=== PATIENT | male | born 1940 | race Caucasian/White ===

== ENCOUNTER 2016-05-09 08:54 | Outpatient (CLI) | payer MEDICARE, OTHER | END 2016-05-09 08:55 | disposition home or self-care (01) | DX: I10 Essential (primary) hypertension (principal); Z12.5 Encounter for screening for malignant neoplasm of prostate; E03.9 Hypothyroidism, unspecified; Z79.899 Other long term (current) drug therapy; E78.2 Mixed hyperlipidemia | CPT/HCPCS: 80053; 80061; 83690; 84443; 85025; G0103 ==

== ENCOUNTER 2016-07-04 06:42 | Outpatient (CLI) | payer MEDICARE, OTHER | END 2016-07-04 06:43 | DX: R31.9 Hematuria, unspecified (principal) ==

== ENCOUNTER 2016-12-21 09:50 | Outpatient (CLI) | payer MEDICARE, OTHER ==
--- NOTE | 2016-12-21 10:26 | XRAY Report ---
THREE-VIEW LUMBAR SPINE: 12/21/2016 CLINICAL INDICATION: Back pain. FINDINGS: AP, lateral, coned-down views of the lumbar spine demonstrate moderate degenerative disk a nd facet disease, with degenerative levoscoliosis. There is no evidence of compression fracture. At herosclerotic calcifications are noted. The bowel gas pattern is unremarkable. IMPRESSION: MODERATE DEGENERATIVE CHANGES, WITH DEGENERATIVE LEVOSCOLIOSIS. JOB #: [id number] EXT JOB #:[id number]
[2016-12-21 11:22] LABS: ALBUMIN/GLOBULIN RATIO 1.4 (1.0-2.2); BUN - BLOOD UREA NITROGEN 24 mg/dL (6-20); CALCIUM 9.3 mg/dL (8.5-10.3); CARBON DIOXIDE - CO2 25 mmol/L (21-32); CHLORIDE 104 mmol/L (101-111); CREATININE 1.4 mg/dL (0.6-1.2); GFR - MDRD 50 (>89); GLUCOSE 100 mg/dL (70-100); POTASSIUM 4.2 mmol/L (3.5-5.0); SODIUM 138 mmol/L (135-145); TOTAL PROTEIN 7.1 g/dL (6.7-8.2)
== END 2016-12-21 09:51 | disposition home or self-care (01) ==
LOC: DI 09:50
PROVIDERS: ATTEND Physician Assistant Medical
DX: M51.36 Other intervertebral disc degeneration, lumbar region (principal); M47.896 Other spondylosis, lumbar region; M41.86 Other forms of scoliosis, lumbar region; R63.4 Abnormal weight loss; Z79.899 Other long term (current) drug therapy
CPT/HCPCS: 36415; 72100; 80053

== ENCOUNTER 2017-01-02 10:47 | Outpatient (CLI) | payer MEDICARE, OTHER ==
[2017-01-02] MEDS ORDERED: IOPAMIDOL-300 50 ML VIAL ONE ×2 (10:56)
[2017-01-02] MEDS: IOPAMIDOL-300 50 ML VIAL PO ONE (14:19)
--- NOTE | 2017-01-02 14:38 | CT Report ---
CT CHEST WITH CONTRAST: 01/02/2017 CLINICAL INDICATION: Abnormal weight loss. TECHNIQUE: Axial CT images of the chest were obtained with 50 mL of Isovue-300 intravenously. In accordance with CT protocol optimization, one or more of the following dose reduction techniques w ere utilized for this exam: automated exposure control, adjustment of mA and/or KV based on patient size, or use of iterative reconstructive technique. FINDINGS: The heart and great vessels demonstrate atherosclerotic calcifications. No hilar or media stinal lymphadenopathy is present. The lungs demonstrate minimal dependent atelectasis. No pulmonar y nodule or mass lesion is present. No effusion or pneumothorax is seen. Osseous structures demonst rate degenerative changes and changes of previous sternotomy. IMPRESSION: NO EVIDENCE OF PULMONARY MALIGNANCY. JOB #: [id number] EXT JOB #:[id number]
--- NOTE | 2017-01-02 14:43 | CT Report ---
CT ABDOMEN AND PELVIS WITH CONTRAST: 01/02/2017 CLINICAL INDICATION: Abnormal weight loss. TECHNIQUE: Axial CT images of the abdomen and pelvis were obtained with 50 mL Isovue-300 intravenous ly as well as oral contrast. In accordance with CT protocol optimization, one or more of the following dose reduction techniques w ere utilized for this exam: automated exposure control, adjustment of mA and/or KV based on patient size, or use of iterative reconstructive technique. FINDINGS: The liver, spleen, pancreas, and adrenal glands are unremarkable. The kidneys demonstrate cortical cysts. No hydronephrosis or nephrolithiasis is present. The gallbladder is not dilated. No bowel dilatation, free gas, or free fluid is present. No abdominal adenopathy is seen. Pelvis: The appendix is seen in the right lower quadrant, and is normal in caliber. Sigmoid diverti culosis is present, without CT evidence of diverticulitis. No pelvic adenopathy or free fluid is pre sent. Osseous structures demonstrate degenerative changes. IMPRESSION: NO EVIDENT REASON FOR PATIENT'S ABNORMAL WEIGHT LOSS. DIVERTICULOSIS, WITHOUT CT EVIDEN CE OF DIVERTICULITIS. JOB #: [id number] EXT JOB #:[id number]
== END 2017-01-02 10:48 | disposition home or self-care (01) ==
LOC: DI 10:47
PROVIDERS: ATTEND Physician Assistant Medical
DX: R63.4 Abnormal weight loss (principal); M54.5 Low back pain; K57.30 Diverticulosis of large intestine without perforation or abscess without bleeding
CPT/HCPCS: 71260; 74177; Q9967

== ENCOUNTER 2017-02-23 08:07 | Outpatient (CLI) | payer MEDICARE, OTHER ==
[2017-02-23 08:31] LABS: BASOPHILS % (AUTO) 0.7 %; EOSINOPHILS # (AUTO) 0.3 10^3/uL (0.0-0.7); EOSINOPHILS % (AUTO) 5.5 %; HGB - HEMOGLOBIN 13.8 g/dL (14.0-18.0); LYMPHOCYTES # (AUTO) 1.3 10^3/uL (1.5-3.5); LYMPHOCYTES % (AUTO) 21.5 %; MEAN CORPUSCULAR HEMOGLOBIN 31.2 pg (27.0-31.0); MEAN CORPUSCULAR HGB CONC 33.6 g/dL (32.0-36.0); MEAN CORPUSCULAR VOLUME 92.8 fL (80.0-94.0); MEAN PLATELET VOLUME 7.7 fL (7.4-11.4); MONOCYTES # (AUTO) 0.5 10^3/uL (0.0-1.0); MONOCYTES % (AUTO) 8.8 %; NEUTROPHILS % (AUTO) 63.5 %; RED BLOOD COUNT 4.41 10^6/uL (4.70-6.10); RED CELL DISTRIBUTION WIDTH 13.2 % (12.0-15.0); UNCORRECTED WHITE BLOOD COUNT 6.2 x10^3/uL; WHITE BLOOD COUNT 6.2 x10^3/uL (4.8-10.8)
== END 2017-02-23 08:08 | disposition home or self-care (01) ==
LOC: LAB 08:07
PROVIDERS: ATTEND Internal Medicine
DX: Z79.899 Other long term (current) drug therapy (principal); R63.4 Abnormal weight loss
CPT/HCPCS: 36415; 84443; 85025; 85651; 86140

== ENCOUNTER 2017-05-22 18:22 | Emergency (ER) | payer MEDICARE, OTHER ==
[2017-05-22 19:08] LABS: BASOPHILS # (AUTO) 0.1 10^3/uL (0.0-0.1); BASOPHILS % (AUTO) 0.7 %; EOSINOPHILS # (AUTO) 0.2 10^3/uL (0.0-0.7); EOSINOPHILS % (AUTO) 2.8 %; HGB - HEMOGLOBIN 13.5 g/dL (14.0-18.0); LYMPHOCYTES # (AUTO) 1.4 10^3/uL (1.5-3.5); LYMPHOCYTES % (AUTO) 18.8 %; MEAN CORPUSCULAR HGB CONC 32.8 g/dL (32.0-36.0); MEAN CORPUSCULAR VOLUME 91.6 fL (80.0-94.0); MEAN PLATELET VOLUME 8.3 fL (7.4-11.4); MONOCYTES # (AUTO) 0.7 10^3/uL (0.0-1.0); MONOCYTES % (AUTO) 8.9 %; NEUTROPHILS # (AUTO) 5.1 10^3/uL (1.5-6.6); NEUTROPHILS % (AUTO) 68.8 %; PLT - PLATELET COUNT 200 10^3/uL (130-450); RED CELL DISTRIBUTION WIDTH 12.9 % (12.0-15.0); WHITE BLOOD COUNT 7.4 x10^3/uL (4.8-10.8)
--- NOTE | 2017-05-22 19:16 | XRAY Report ---
EXAM: CHEST RADIOGRAPHY EXAM DATE: 05/22/2017 07:01 PM. CLINICAL HISTORY: Hypertension . COMPARISON: None. TECHNIQUE: 2 views. FINDINGS: Lungs/Pleura: No focal opacities evident. No pleural effusion. No pneumothorax. Normal volumes. Mediastinum: Status post median sternotomy and valve repair. The heart is otherwise normal in size. T he pulmonary vasculature is within normal limits. Other: None. IMPRESSION: No focal consolidation. [facility] Referring Provider Line: [phone] SITE ID: [id number]
[2017-05-22 19:19] LABS: ALBUMIN 4.2 g/dL (3.2-5.5); ALBUMIN/GLOBULIN RATIO 1.2 (1.0-2.2); ALKALINE PHOSPHATASE 55 IU/L (42-121); ALT ALANINE AMINOTRANSFERASE < 10 IU/L (10-60); AST ASPARTATE AMINOTRANSFERASE 27 IU/L (10-42); BILIRUBIN,TOTAL 0.8 mg/dL (0.2-1.0); BUN - BLOOD UREA NITROGEN 24 mg/dL (6-20); CALCIUM 9.3 mg/dL (8.5-10.3); CARBON DIOXIDE - CO2 25 mmol/L (21-32); CHLORIDE 101 mmol/L (101-111); CREATININE 1.2 mg/dL (0.6-1.2); GFR - MDRD 59 (>89); GLUCOSE 93 mg/dL (70-100); LIPASE 21 U/L (22-51); SODIUM 138 mmol/L (135-145); TOTAL PROTEIN 7.6 g/dL (6.7-8.2)
--- NOTE | 2017-05-22 19:57 | ED Physician Documentation ---
PD HPI CHEST PAIN - Stated complaint Stated Complaint: Hypertension - Chief complaint Chief Complaint: Cardiac - History obtained from History obtained from: Patient - History of Present Illness Timing - onset: How many days ago (he says his BP has been high borderline for awhile, and higher the past several days. He resumed a BP med he had been on ( Lopressor by his own med list, though nursing notes say Lisinopril but that is not accurate). He had been off that as it made his heart rate too slow. Noted BP quite high today at 180-190 systolic with high diastolic as well. Here for evaluation. No headache, chest pain, lightheaded nor dyspnea.) Timing - onset during: Rest Timing - details: Waxing and waning Quality: No: Pressure, Tightness, Pain Associated symptoms: No: Shortness of air, Diaphoresis, Nausea, Vomiting, Feeling faint / dizzy, General Weakness, Palpitations, Cough Recently seen: Not recently seen Review of Systems Constitutional: denies: Fever, Chills Nose: denies: Rhinorrhea / runny nose, Congestion Throat: denies: Sore throat Cardiac: denies: Chest pain / pressure, Palpitations Respiratory: denies: Dyspnea, Cough GI: denies: Abdominal Pain, Nausea, Vomiting, Diarrhea, Bloody / black stool Neurologic: reports: Generalized weakness (with tremors from his Parkinsons). denies: Focal weakness, Numbness, Confused, Altered mental status, Headache PD PAST MEDICAL HISTORY - Past Medical History Cardiovascular: None Respiratory: None Neuro: Parkinson's Endocrine/Autoimmune: None GI: GERD, Colon polyps : None HEENT: Chronic hearing loss Psych: None Musculoskeletal: Osteoarthritis, Fatigue, Chronic back pain Derm: None - Past Surgical History General: Colonoscopy - Present Medications Home Medications: Ambulatory Orders Medication Instructions Recorded Confirmed Aspirin 81 mg PO 12/18/12 12/18/12 Carbidopa/Levodopa [Carbidopa-Levo SUBQ QID 12/18/12 12/18/12 25-100 mg Odt] Cetirizine HCl [All Day Allergy] 12/18/12 12/18/12 Levothyroxine [Synthroid] 50 mcg PO QDAC 12/18/12 12/18/12 Lisinopril 20 mg PO 12/18/12 12/18/12 Multivitamin [Multivitamins] 1 each PO 12/18/12 12/18/12 Omeprazole Magnesium [Prilosec Otc] 20 mg PO 12/18/12 12/18/12 Ropinirole HCl [Requip] 5 mg PO QID 12/18/12 12/18/12 Trihexyphenidyl [Artane] BID 12/18/12 12/18/12 raNITIdine HCl [Ranitidine HCl] 150 mg PO BID 12/18/12 12/18/12 Lorazepam [Ativan] 1 mg PO QPM PRN #7 tablet 05/22/17 Losartan [Cozaar] 50 mg PO DAILY #30 tablet 05/22/17 - Allergies Allergies/Adverse Reactions: Allergies Allergy/AdvReac Type Severity Reaction Status Date / Time No Known Drug Allergies Allergy Verified 05/22/17 18:34 - Social History Does the pt smoke?: No Smoking Status: Never smoker PD ED PE NORMAL - Vitals Vital signs reviewed: Yes - General General: Alert and oriented X 3, No acute distress, Well developed/nourished - HEENT HEENT: Pharynx benign - Neck Neck: Supple, no meningeal sign, No adenopathy, Thyroid normal - Cardiac Cardiac: RRR, No murmur - Respiratory Respiratory: Clear bilaterally - Abdomen Abdomen: Soft, Non tender - Derm Derm: Normal color, Warm and dry - Extremities Extremities: No tenderness to palpate, Normal ROM s pain - Neuro Neuro: Alert and oriented X 3, No motor deficit, Normal speech Eye Opening: Spontaneous Motor: Obeys Commands Verbal: Oriented GCS Score: 15 Results - Vitals Vitals: Oxygen O2 Source Room air - EKG (time done) 18:59 Rate: Rate (enter#) (66) Rhythm: NSR (too much artifact from his tremors, so not interpretable really. Appears like P waves in there. ) Ischemia: Normal ST segments. No: ST elevation c/w ischemia, ST depression - Tele (time rhythm occurred) 19:10 Telemetry / rhythm strip: Rate (65), NSR (when he has moments between tremor cycles, the monitor shows NSR. Otherwise the tremors shows just artifact. ) - Labs Labs: Laboratory Tests 05/22/17 05/22/17 05/22/17 19:00 19:00 19:00 WBC 7.4 RBC 4.50 L Hgb 13.5 L Hct 41.3 L MCV 91.6 MCH 30.0 MCHC 32.8 RDW 12.9 Plt Count 200 MPV 8.3 Neut # 5.1 Lymph # 1.4 L [place] # 0.7 Eos # 0.2 Baso # 0.1 Absolute Nucleated RBC 0.00 Nucleated RBC % 0.0 Sodium 138 Potassium 4.3 Chloride 101 Carbon Dioxide 25 Anion Gap 12.0 BUN 24 H Creatinine 1.2 Estimated GFR (MDRD) 59 L Glucose 93 Calcium 9.3 Total Bilirubin 0.8 AST 27 ALT < 10 L Alkaline Phosphatase 55 Troponin I < 0.04 Total Protein 7.6 Albumin 4.2 Globulin 3.4 Albumin/Globulin Ratio 1.2 Lipase 21 L PD MEDICAL DECISION MAKING - ED course Complexity details: considered differential (BP high without symptoms per se. Has been high borderline for awhile, per patient. He had been on Metoprolol previously but heart rate was slow with it. So he would like to be on BP med and would choose one that does not affect HR as well, such as SHLOMO/ARB. Triage pathway for chest pain showed normal labs. ), d/w patient Departure - Departure Disposition: 01 Home, Self Care Clinical Impression: Hypertension Qualifiers: Hypertension type: unspecified Qualified Code(s): I10 - Essential (primary) hypertension Condition: Stable Record reviewed to determine appropriate education?: Yes Instructions: ED Hypertension New Begin Tx Follow-Up: Miguelangel Beatty MD [Primary Care Provider] - Prescriptions: Lorazepam [Ativan] 1 mg PO QPM PRN #7 tablet PRN Reason: Insomnia Losartan [Cozaar] 50 mg PO DAILY #30 tablet Comments: With your blood pressure running higher, you could be reasonable to start a blood pressure medicine that will not affect heart rate as well. Take losartan 50 mg daily and check your blood pressure once or twice daily over the next week and see what the trend is. Your blood pressure may be elevated because of your trouble sleeping lately he could try Ativan at night as needed for sleep over the next week. Follow-up with your primary care in about a week and see how you are doing with these. Discharge Date/Time: 05/22/17 20:49
[2017-05-22] MEDS ORDERED: LOSARTAN 50 MG TABLET PO STA (20:15)
[2017-05-22] MEDS ORDERED: LORazepam 0.5 MG TABLET PO STA (20:16)
[2017-05-22 20:32] VITALS: BP 172/93
== END 2017-05-22 20:49 | disposition home or self-care (01) ==
LOC: ED 18:22
DX: I10 Essential (primary) hypertension (principal); G20 Parkinson's disease; Z79.82 Long term (current) use of aspirin
CPT/HCPCS: 36415; 71046; 80053; 83690; 84484; 85025; 93005; 99283; A9270

== ENCOUNTER 2017-10-31 10:30 | Outpatient (CLI) | payer MEDICARE, OTHER ==
--- NOTE | 2017-10-31 15:14 | XRAY Report ---
Procedure Date: 10/31/2017 Accession Number: [id number] / [id number] Procedure: XR - Knee 3 View BILAT CPT Code: FULL RESULT: EXAMS: 1. Right Knee Radiography 2. Left Knee Radiography EXAM DATE:10/31/2017 11:13 AM. CLINICAL HISTORY:Knee joint pain, 3 months, right. COMPARISON: None. TECHNIQUE: 3 views each. FINDINGS: Right Knee: Bones: Normal. No fractures or bone lesions. Joints: There are advanced degenerative changes of the medial patellar facet with sclerosis and subchondral cyst formation. There are moderate degenerative changes in the medial femorotibial compartment and mild degenerative changes in the lateral femorotibial compartment. There is a small joint effusion. Soft Tissues: Normal. No soft tissue swelling. Left Knee: Bones: Normal. No fractures or bone lesions. Joints: Mild tricompartmental osteoarthrosis most pronounced in the medial femorotibial compartment. There is no joint effusion. Soft Tissues: Normal. No soft tissue swelling. IMPRESSION: Asymmetric degenerative changes of the right knee joint predominantly involving the medial patellar facet. [facility]
== END 2017-10-31 10:31 | disposition home or self-care (01) ==
LOC: DI 10:30
PROVIDERS: ATTEND Physician Assistant Medical
DX: M25.561 Pain in right knee (principal)

== ENCOUNTER 2017-12-16 16:14 | Outpatient (CLI) | payer MEDICARE, OTHER | END 2017-12-16 16:15 | disposition critical access hospital (66) | LOC: EMS 16:14 | PROVIDERS: ATTEND Surgery | DX: K62.5 Hemorrhage of anus and rectum (principal) | CPT/HCPCS: A0425; A0427 ==

== ENCOUNTER 2017-12-16 16:25 | Observation (INO) | payer MEDICARE, OTHER ==
[2017-12-16 16:55] LABS: BASOPHILS % (AUTO) 0.3 %; EOSINOPHILS # (AUTO) 0.1 10^3/uL (0.0-0.7); EOSINOPHILS % (AUTO) 0.8 %; HGB - HEMOGLOBIN 9.6 g/dL (14.0-18.0); LYMPHOCYTES % (AUTO) 13.7 %; MEAN CORPUSCULAR HGB CONC 34.3 g/dL (32.0-36.0); MEAN CORPUSCULAR VOLUME 93.3 fL (80.0-94.0); MEAN PLATELET VOLUME 8.1 fL (7.4-11.4); MONOCYTES # (AUTO) 0.4 10^3/uL (0.0-1.0); MONOCYTES % (AUTO) 5.8 %; NEUTROPHILS # (AUTO) 5.6 10^3/uL (1.5-6.6); NEUTROPHILS % (AUTO) 79.4 %; PLT - PLATELET COUNT 161 10^3/uL (130-450); RED CELL DISTRIBUTION WIDTH 13.4 % (12.0-15.0); WHITE BLOOD COUNT 7.1 x10^3/uL (4.8-10.8)
[2017-12-16 17:01] LABS: INR 1.1 (0.8-1.2); PT - PROTHROMBIN TIME 12.7 secs (9.9-12.6)
--- NOTE | 2017-12-16 17:02 | ED Physician Documentation ---
PD HPI GI BLEED - Stated complaint Stated Complaint: GI BLEED - Chief complaint Chief Complaint: Abd Pain - History obtained from History obtained from: Patient, EMS - History of Present Illness Timing - onset: Last night (had 2 episodes of bloody stool, then none overnight. Has had 5-6 episodes today, with red to slightly maroon stools today. Feeling generally weak. No abd pain.) Timing - duration: Days (1) Timing - details: Abrupt onset, Still present Associated symptoms: BRBPR, Maroon stool. No: Vomiting, Coffee ground emesis, Black/tarry stool, Diarrhea, Constipation, Abdominal pain, Loss of appetite Contributing factors: No: Sick contact, Bad food, Travel, Recent antibiotics, Anticoagulated Improved by: No: Eating Worsened by: No: Eating, Palpation Similar symptoms before: Has not had sx before Recently seen: Not recently seen Review of Systems Constitutional: reports: Fatigue. denies: Fever, Chills, Myalgias Nose: denies: Rhinorrhea / runny nose, Congestion Throat: denies: Sore throat Respiratory: denies: Cough GI: reports: Bloody / black stool. denies: Abdominal Pain, Abdominal Swelling, Nausea, Vomiting, Constipation, Hematemesis : denies: Dysuria, Frequency Neurologic: reports: Generalized weakness. denies: Focal weakness, Numbness, Near syncope, Altered mental status PD PAST MEDICAL HISTORY - Past Medical History Cardiovascular: None Respiratory: None Endocrine/Autoimmune: None GI: GERD, Colon polyps : None HEENT: Chronic hearing loss Psych: None Musculoskeletal: Osteoarthritis, Fatigue, Chronic back pain Derm: None - Past Surgical History General: Colonoscopy (with just polyps several years ago) - Present Medications Home Medications: Ambulatory Orders Medication Instructions Recorded Confirmed Aspirin 81 mg PO 12/18/12 12/18/12 Carbidopa/Levodopa [Carbidopa-Levo SUBQ QID 12/18/12 12/18/12 25-100 mg Odt] Cetirizine HCl [All Day Allergy] 12/18/12 12/18/12 Levothyroxine [Synthroid] 50 mcg PO QDAC 12/18/12 12/18/12 Lisinopril 20 mg PO 12/18/12 12/18/12 Multivitamin [Multivitamins] 1 each PO 12/18/12 12/18/12 Omeprazole Magnesium [Prilosec Otc] 20 mg PO 12/18/12 12/18/12 Ropinirole HCl [Requip] 5 mg PO QID 12/18/12 12/18/12 Trihexyphenidyl [Artane] BID 12/18/12 12/18/12 raNITIdine HCl [Ranitidine HCl] 150 mg PO BID 12/18/12 12/18/12 Lorazepam [Ativan] 1 mg PO QPM PRN #7 tablet 05/22/17 Losartan [Cozaar] 50 mg PO DAILY #30 tablet 05/22/17 - Allergies Allergies/Adverse Reactions: Allergies Allergy/AdvReac Type Severity Reaction Status Date / Time No Known Drug Allergies Allergy Verified 12/16/17 16:31 - Social History Does the pt smoke?: No Smoking Status: Never smoker Does the pt drink ETOH?: No Does the pt have substance abuse?: No - Immunizations Immunizations are current?: Yes PD ED PE NORMAL - Vitals Vital signs reviewed: Yes - General General: Alert and oriented X 3, No acute distress, Well developed/nourished - HEENT HEENT: Moist mucous membranes, Pharynx benign - Neck Neck: Supple, no meningeal sign, No adenopathy - Cardiac Cardiac: RRR, No murmur - Respiratory Respiratory: Clear bilaterally - Abdomen Abdomen: Normal bowel sounds, Soft, Non tender, Non distended, No organomegaly - Male Male : Deferred - Rectal Rectal: Other (no hemorrhoids. There is red to slightly maroon material in vault. No real stool noted. c/w GI bleed) - Back Back: No CVA TTP - Derm Derm: Warm and dry. No: Normal color (mild pallor) - Extremities Extremities: No deformity, No tenderness to palpate, Normal ROM s pain, No edema, No calf tenderness / cord - Neuro Neuro: Alert and oriented X 3, No motor deficit, Normal speech Eye Opening: Spontaneous Motor: Obeys Commands Verbal: Oriented GCS Score: 15 - Psych Psych: Normal mood, Normal affect Results - Vitals Vitals: Vital Signs - 24 hr 12/16/17 12/16/17 12/16/17 16:25 16:54 17:00 Temperature 36.2 C L Heart Rate 65 71 78 Respiratory 14 21 16 Rate Blood Pressure 108/80 119/71 115/67 O2 Saturation 96 100 99 12/16/17 17:41 Temperature Heart Rate 98 Respiratory 16 Rate Blood Pressure 124/72 O2 Saturation 97 Oxygen O2 Source Room air - Labs Labs: Laboratory Tests 12/16/17 12/16/17 12/16/17 16:35 16:35 16:35 WBC 7.1 RBC 3.00 L Hgb 9.6 L Hct 28.0 L MCV 93.3 MCH 32.0 H MCHC 34.3 RDW 13.4 Plt Count 161 MPV 8.1 Neut # (Auto) 5.6 Lymph # (Auto) 1.0 L [place] # (Auto) 0.4 Eos # (Auto) 0.1 Baso # (Auto) 0.0 Absolute Nucleated RBC 0.00 Nucleated RBC % 0.0 PT 12.7 H INR 1.1 APTT 23.0 L Sodium 134 L Potassium 3.5 Chloride 103 Carbon Dioxide 24 Anion Gap 7.0 BUN 22 H Creatinine 1.2 Estimated GFR (MDRD) 59 L Glucose 133 H Calcium 7.6 L Total Bilirubin 1.0 AST 19 ALT < 10 L Alkaline Phosphatase 33 L Troponin I Total Protein 5.2 L Albumin 3.2 Globulin 2.0 L Albumin/Globulin Ratio 1.6 Lipase 28 Blood Type Antibody Screen Crossmatch IS Only 12/16/17 12/16/17 16:35 16:35 WBC RBC Hgb Hct MCV MCH MCHC RDW Plt Count MPV Neut # (Auto) Lymph # (Auto) [place] # (Auto) Eos # (Auto) Baso # (Auto) Absolute Nucleated RBC Nucleated RBC % PT INR APTT Sodium Potassium Chloride Carbon Dioxide Anion Gap BUN Creatinine Estimated GFR (MDRD) Glucose Calcium Total Bilirubin AST ALT Alkaline Phosphatase Troponin I < 0.04 Total Protein Albumin Globulin Albumin/Globulin Ratio Lipase Blood Type A POSITIVE Antibody Screen NEGATIVE Crossmatch IS Only See Detail PD MEDICAL DECISION MAKING - ED course Complexity details: reviewed results (blood count of 9.6, with last one on record from May was 13 hgb. Vital are stable though. ), considered differential, d/w patient - Sepsis Event Vital Signs: Vital Signs - 24 hr 12/16/17 12/16/17 12/16/17 16:25 16:54 17:00 Temperature 36.2 C L Heart Rate 65 71 78 Respiratory 14 21 16 Rate Blood Pressure 108/80 119/71 115/67 O2 Saturation 96 100 99 12/16/17 17:41 Temperature Heart Rate 98 Respiratory 16 Rate Blood Pressure 124/72 O2 Saturation 97 Oxygen O2 Source Room air Departure - Departure Disposition: ED Place in Observation Clinical Impression: Lower GI bleeding, Anemia due to acute blood loss, Parkinson disease Condition: Stable Record reviewed to determine appropriate education?: Yes Discharge Date/Time: 12/16/17 19:16
[2017-12-16 17:09] LABS: ALBUMIN 3.2 g/dL (3.2-5.5); ALBUMIN/GLOBULIN RATIO 1.6 (1.0-2.2); ALKALINE PHOSPHATASE 33 IU/L (42-121); ALT ALANINE AMINOTRANSFERASE < 10 IU/L (10-60); AST ASPARTATE AMINOTRANSFERASE 19 IU/L (10-42); BUN - BLOOD UREA NITROGEN 22 mg/dL (6-20); CALCIUM 7.6 mg/dL (8.5-10.3); CARBON DIOXIDE - CO2 24 mmol/L (21-32); CHLORIDE 103 mmol/L (101-111); CREATININE 1.2 mg/dL (0.6-1.2); GFR - MDRD 59 (>89); GLUCOSE 133 mg/dL (70-100); LIPASE 28 U/L (22-51); SODIUM 134 mmol/L (135-145); TOTAL PROTEIN 5.2 g/dL (6.7-8.2)
[2017-12-16] MEDS ORDERED: TRANEXAMIC ACID 1,000 MG in SODIUM CHLORIDE 0.9% 100ML 100 ML IV STA (17:17)
--- NOTE | 2017-12-16 17:53 | HISTORY & PHYSICAL EXAMINATION ---
Chief Complaint - Chief Complaint Chief Complaint: GI bleed History of Present Illness - Admitted From Admitted From:: ED - History Obtained From Records Reviewed: yes History obtained from: chart review, patient, patient's Exam Limitations: none - History of Present Illness HPI Comment/Other: Altaf Sandra (John) is a 76-year old male with a past medical history of GERD, colon polyps, diverticulitis, gastric ulcers from +H. 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 The patient began with a blood stool last evening around 5pm, had a few more episodes overnight and this morning this continued causing him profound weakness, so EMS was called. Once arriving in the ED just after 3pm today the patient was found to be anemic with a hemoglobin of 9.6 and a hematocrit of 28.0, mild kidney dysfunction with an elevated creatinine of 1.2, and a reduced GFR of 59. He was seen by general surgery, Dr. Flowers prior to my admit orders who agrees to begin bowel prep this evening and a scope in the AM. Upon my exam the patient is mildly pale and his is at the bedside for the admission. He will be admitted to observation. History - Past Medical History Cardiovascular: reports: Hypertension, Murmur Respiratory: reports: None Neuro: reports: Parkinson's, Tremors Endocrine/Autoimmune: reports: HyPOthyroidism GI: reports: GERD, Ulcers, Colon polyps, Chronic diarrhea, Chronic constipation, Diverticulitis (history ), Other (History of H. 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 His mother from COPD and he was an only child. Living arrangement: At home Living Situation: With spouse/s.o. 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 He is to Deysi and they live independently. He denies the use of tobacco or illicit drug use. He admits to monthly alcohol use that consists of 1-2 drinks. He states that he has living will paperwork and wishes to be a FULL code. - Substance History Use: Uses substance without health or social issues: NONE Abuse: Recurrent use of substance despite neg consequences: NONE Dependence: Experiences withdrawal or developed tolerances: NONE - POLST Patient has POLST: No POLST Status: Full Code Meds/Allgy - Home Medications Home Medications: Ambulatory Orders Medication Instructions Recorded Confirmed Amlodipine Besylate 2.5 mg PO 219912/17/17 12/17/17 Carbidopa/Levodopa [Carbidopa-Levo 1 tab PO 1000,219912/17/17 12/17/17 ER 50-200 Tab] Carbidopa/Levodopa 2 tab PO 0800,1200,1600,2000 12/17/17 12/17/17 [Carbidopa-Levodopa 25-100 Tab] Cholecalciferol (Vitamin D3) 5,[place] [address]12/17/17 12/17/17 [Vitamin D3] Cyanocobalamin (Vitamin B-12) 1,[place] [address]/17/17 12/17/17 [Vitamin B-12 (500 mcg sublingual)] LORazepam [Lorazepam] 0.5 mg PO 0600,1200,1800,0000 12/17/17 12/17/17 Levothyroxine [place] [address]/17/17 12/17/17 Losartan Pot[place] [address]12/17/17 12/17/17 Multivitamin [Theragran] [place] [address]/17/17 12/17/17 Ropinirole HCl [Ropinirole ER] 8 mg PO 219912/17/17 12/17/17 - Allergies Allergies/Adverse Reactions: Allergies Allergy/AdvReac Type Severity Reaction Status Date / Time No Known Drug Allergies Allergy Verified 12/16/17 16:31 Review of Systems - Constitutional Constitutional: reports: Fatigue, Weakness, Poor appetite - Eyes Eyes: reports: Corrective lenses - Ears, Nose & Throat Ears, Nose & Throat: reports: Hearing loss, Hearing aids - Cardiovascular Cariovascular: reports: Edema, Exertional dyspnea, Decr. exercise tolerance - Respiratory Respiratory: reports: SOB at rest, SOB with exertion - Gastrointestinal Gastrointestinal: reports: Constipation, Diarrhea, Bloody stools, Nausea, Reflux/heartburn, Poor appetite - Genitourinary Genitourinary: reports: Nocturia - Musculoskeletal Musculoskeletal: reports: Back pain, Muscle weakness - Integumentary Integumentary: reports: Dryness, Pigment changes (chronic BLEs) - Neurological Neurological: reports: General weakness, Pre-existing deficit, Abnormal gait (baseline ataxia), Incoordination - Psychiatric Psychiatric: reports: Depression - All Other Systems All Other Systems: reports: Reviewed and negative Prior Level of Functionality: The patient is independent at home and uses a walker for long distances, and a cane for short distances. He has baseline ataxia due to his progressive Parkinson's disease. Exam - Vital Signs Reviewed Vital Signs: Yes Vital Signs: Vital Signs x48h Temp Pulse Resp BP Pulse Ox 12/16/17 17:41 98 16 124/72 97 12/16/17 17:00 78 16 115/67 99 12/16/17 16:54 71 21 119/71 100 12/16/17 16:25 36.2 C L 65 14 108/80 96 - Physical Exam General Appearance: positive: No acute distress, Alert Eyes Bilateral: positive: Normal inspection, PERRL ENT: positive: ENT inspection nml, Pharynx nml, No signs of dehydration Neck: positive: Nml inspection, Thyroid nml, No JVD, Trachea midline Respiratory: positive: Chest non-tender, No respiratory distress, Breath sounds nml Cardiovascular: positive: Regular rate & rhythm, No gallop, Systolic murmur Peripheral Pulses: positive: 2+ Abdomen: positive: Non-tender, Nml bowel sounds Rectal: positive: Bloody stool Back: positive: Nml inspection Skin: positive: No rash, Warm, Dry, Pallor Extremities: positive: Non-tender, Pedal edema (chronic BLE edema, non- pitting.), Joint swelling Neurologic/Psychiatric: positive: Oriented x3, CN's nml (2-12), Motor nml, Sensation nml, Weakness, Depressed mood/affect, Other (resting tremors-severe.) Reflexes: Bicep (R): 3+, Bicep (L): 3+ Conclusion/Plan - Problem List (1) Pre-operative cardiovascular examination Conclusion/Plan: Based on the Revised Cardiac Risk Index for pre-operative risk for his upcoming scope procedures; His score is calculated at 0.4%. Plan: continue with observation care. (2) Lower GI bleeding Conclusion/Plan: The patient reports that he has had 5-6 episodes of maroon stools, in addition, had at least 2 episodes overnight. The patient is found to have a below baseline H/H. General surgery was immediately contacted who will plan for a colonoscopy, possible EGD in the AM. Plan: Bowel prep starting this evening, NPO after MN and colonoscopy in the AM with Dr. Flowers. (3) Anemia due to acute blood loss Conclusion/Plan: The patient has only mild anemia previously with a hemoglobin baseline of 13.5 and a hematocrit of 41.3, that is now much lower at 9.6/28.0. The patient was noted to have several stools that started in the night, that explains this deficit. Plan: Colonoscopy in the AM, serial H/H labs, and replace blood for symptoms or hemoglobin less than 7. (4) Hypertension Conclusion/Plan: The patient is prescribed lisinopril, and cozaar at home. His blood pressure upon admission was 124/72. Plan: Continue to monitor vital signs and continue meds. Qualifiers: Hypertension type: essential hypertension Qualified Code(s): I10 - Essential (primary) hypertension (5) Parkinson disease Conclusion/Plan: The patient is prescribed Carbidopa/levodopa at home, which will be continued here up until a few hours prior to his scope. He has baseline tremors. Plan: Continue meds, and monitor. (6) Hypothyroidism Conclusion/Plan: The patient is prescribed synthroid at 50 mcg PO daily at home, which is continued here. His last TSH is unknown. Plan: Continue med and check TSH in the AM. (7) GERD (gastroesophageal reflux disease) Conclusion/Plan: The patient is prescribed both zantac and a PPI at home. Plan: Continue PPI in an IV form. (8) Tremor due to disorder of central nervous system Conclusion/Plan: The patient demonstrates a vigorous, moderate-severe tremor at rest, but denies any problems with swallowing or frequent falls. He is prescribed Carbadopa/levodopa, lorazepam, requip, which is continued here. Plan: Continue to monitor, fall precautions. - Lab Results Lab results reviewed: Yes Fish Bones: 12/17/17 07:18 12/17/17 07:18 - Diagnostic Imaging Results Diagnostic Imaging Results: positive: Prelim report reviewed, Final report reviewed Core Measures - Anticipated LOS I expect patient to be DC'd or transferred within 96 hours.: Yes - DVT/VTE - Prophylaxis VTE/DVT Device ordered at admit?: Yes VTE/DVT Prophylaxis med ordered at admit?: No Not Ordered - Medical Reason: Contraindicated - Stroke - Rehab Assessment Rehab services assessment to be ordered?: No Not Ordered - Medical Reason: Contraindicated - AMI - Statin at Admit Aspirin Prescribed on Admit: No Not Ordered - Medical Reason: Contraindicated
[2017-12-16] MEDS ORDERED: LORazepam 0.5 MG TABLET PO PRN (19:12)
[2017-12-16] MEDS ORDERED: ONDANSETRON 4 MG/2 ML VIAL IVP PRN (19:14)
[2017-12-16] MEDS: SODIUM/POTASSIUM/MAG SULFATES 354 ML PREP KIT PO SCH (19:46)
[2017-12-16] MEDS: CARBIDOPA/LEVODOPA 25 MG/100 MG TABLET PO SCH ×2 (19:46→20:18)
[2017-12-16] MEDS ORDERED: NS W/20 MEQ KCL 1,000 ML IV SCH (20:00)
[2017-12-16] MEDS ORDERED: PANTOPRAZOLE 40 MG VIAL IV SCH (21:00)
[2017-12-16] MEDS: SODIUM CHLORIDE FLUSH 0.9% 10 ML SYRINGE IVP SCH (21:05)
[2017-12-16] MEDS: PANTOPRAZOLE 40 MG VIAL IV SCH (21:12)
[2017-12-16] MEDS ORDERED: CARBIDOPA/LEVODOPA ER 50 MG/200 MG TABLET PO SCH (22:00)
--- NOTE | 2017-12-16 22:04 | CONSULTATION NOTE ---
Referring Provider Name of Referring Provider:: Derek Herman Consult Date: 12/16/17 Chief Complaint - Chief Complaint Chief Complaint: Acute blood loss anemia due to gastrointestinal bleeding History of Present Illness - Admitted From Admitted From:: [facility] ED - History Obtained From Records Reviewed: Yes History obtained from: Patient, , chart and Cirilo Nuñez's complete H&P Exam Limitations: None - History of Present Illness HPI Comment/Other: I had the pleasure of meeting very pleasant 76-year-old gentleman who likes to go by the name of Derek in room 1 at [facility]'s emergency department for a gastrointestinal bleed resulting in acute blood loss anemia. The patient has had a past history of ulcers as well as polyps and has had previous endoscopies and colonoscopies. He is also tested positive for Helicobacter pylori. He is not on any blood thinners. He has not been taking nonsteroidal anti-inflammatory drugs. His stools have been both dark as well as maroon and he normally alternates between constipation and diarrhea. He has had absolutely 0 abdominal pain. Notably he has Parkinson's and he is in line for [facility]. Additionally he states that he has had a heart valve replaced with a pig valve and he is not on any anticoagulation. History - Past Medical History Cardiovascular: reports: Hypertension, Murmur Respiratory: reports: None Neuro: reports: Parkinson's, Tremors Endocrine/Autoimmune: reports: HyPOthyroidism GI: reports: GERD, Ulcers, Colon polyps, Chronic diarrhea, Chronic constipation, Diverticulitis (history ), Other (History of H. 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 His mother from COPD and he was an only child. Living arrangement: At home Living Situation: With spouse/s.o. 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 He is to Deysi and they live independently. He denies the use of tobacco or illicit drug use. He admits to monthly alcohol use that consists of 1-2 drinks. He states that he has living will paperwork and wishes to be a FULL code. - Substance History Use: Uses substance without health or social issues: NONE Abuse: Recurrent use of substance despite neg consequences: NONE Dependence: Experiences withdrawal or developed tolerances: NONE - POLST Patient has POLST: No POLST Status: Full Code Meds/Allgy - Home Medications Home Medications: Ambulatory Orders Medication Instructions Recorded Confirmed Aspirin 81 mg PO 12/18/12 12/18/12 Carbidopa/Levodopa [Carbidopa-Levo SUBQ QID 12/18/12 12/18/12 25-100 mg Odt] Cetirizine HCl [All Day Allergy] 12/18/12 12/18/12 Levothyroxine [Synthroid] 50 mcg PO QDAC 12/18/12 12/18/12 Lisinopril 20 mg PO 12/18/12 12/18/12 Multivitamin [Multivitamins] 1 each PO 12/18/12 12/18/12 Omeprazole Magnesium [Prilosec Otc] 20 mg PO 12/18/12 12/18/12 Ropinirole HCl [Requip] 5 mg PO QID 12/18/12 12/18/12 Trihexyphenidyl [Artane] BID 12/18/12 12/18/12 raNITIdine HCl [Ranitidine HCl] 150 mg PO BID 12/18/12 12/18/12 Lorazepam [Ativan] 1 mg PO QPM PRN #7 tablet 05/22/17 Losartan [Cozaar] 50 mg PO DAILY #30 tablet 05/22/17 - Allergies Allergies/Adverse Reactions: Allergies Allergy/AdvReac Type Severity Reaction Status Date / Time No Known Drug Allergies Allergy Verified 12/16/17 16:31 Review of Systems - Gastrointestinal Gastrointestinal: reports: Constipation, Diarrhea, Rectal bleeding, Black stools, Bloody stools, Reflux/heartburn Exam - Vital Signs Reviewed Vital Signs: Yes Vital Signs: Vital Signs x48h Temp Pulse Pulse Resp BP BP Pulse Ox 12/16/17 20:21 36.9 C 76 20 103/55 L 100 12/16/17 17:41 98 16 124/72 97 12/16/17 17:00 78 16 115/67 99 12/16/17 16:54 71 21 119/71 100 12/16/17 16:25 36.2 C L 65 14 108/80 96 - Physical Exam General Appearance: positive: No acute distress, Other (Rather severe resting tremor, much better when directed motion.) Eyes Bilateral: positive: No lid inflammation, Conjunctivae nml, No scleral icterus ENT: positive: Dry mucous membranes (I gave him some water along with his Parkinson's medications.) Neck: positive: Trachea midline Respiratory: positive: Chest non-tender, No respiratory distress, Breath sounds nml Cardiovascular: positive: Regular rate & rhythm, No murmur, Systolic murmur Abdomen: positive: Non-tender, No organomegaly, Nml bowel sounds, No distention Skin: positive: Pallor (Slight.) Extremities: positive: Non-tender Neurologic/Psychiatric: positive: Oriented x3, Other (Tremor as mentioned above.) Conclusion/Plan - Diagnosis Diagnosis: Acute blood loss anemia secondary to gastrointestinal bleeding in a 76-year male with a history of H. pylori positivity, ulcer, and colonic polyps - Plan Plan: Esophagogastroduodenoscopy and colonoscopy with possible biopsies and/or polypectomies. Indications, procedure, alternatives and even no procedure at all and risks including but not limited to perforation requiring operative repair, bleeding with its risks, and were fully explained to him. Conscious sedation was discussed at length with him as were its risks including but not limited to loss of airway, aspiration, respiratory depression, and not enough relief of pain and anxiety and he indicated that he wished to have co nscious sedation for his procedure. I explained that his posterior oropharynx would also be anesthetized for the procedure. I explained that MAC anesthesia is associated with a higher incidence of intestinal perforation. Review of his history does not reveal any significant systemic disease that would contraindicate use of conscious sedation or MAC anesthesia. All questions were fully answered. Verbal and written consent was obtained. The patient in preparation for his esophagogastroduodenoscopy and colonoscopy will be n.p.o. and his colon will be mechanically prepped. 45 minutes of [id number] time spent with the patient and his , the majority of which was spent in discussion, coordination of care, and completion of the requisite paperwork Kristan disclaimer: This document was created in part using voice recognition technology. Because of the inherent limitations of the system ([employer]'s [employer] Dictate user manual states that the licensee understands that speech recognition is a statistical process and that recognition errors are inherent in the process), occasional yi e sounding word substitutions and grammatical errors do occur and persist despite proofreading. Please read this document for context. - Lab Results Lab results reviewed: Yes Fish Bones: 12/16/17 16:35 12/16/17 16:35
[2017-12-16] MEDS ORDERED: rOPINIRole 1 MG TABLET PO SCH (23:00)
[2017-12-17] MEDS: LORazepam 0.5 MG TABLET PO SCH ×3 (00:07→07:12)
[2017-12-17] MEDS: SODIUM CHLORIDE FLUSH 0.9% 10 ML SYRINGE IVP PRN ×2 (00:08→10:29)
[2017-12-17] MEDS: SODIUM/POTASSIUM/MAG SULFATES 354 ML PREP KIT PO SCH (05:12)
[2017-12-17] MEDS ORDERED: LEVOTHYROXINE 100 MCG VIAL IVP SCH (07:00)
[2017-12-17 07:21] LABS: BASOPHILS % (AUTO) 0.3 %; EOSINOPHILS % (AUTO) 0.2 %; HGB - HEMOGLOBIN 9.4 g/dL (14.0-18.0); LYMPHOCYTES # (AUTO) 1.4 10^3/uL (1.5-3.5); LYMPHOCYTES % (AUTO) 16.8 %; MEAN CORPUSCULAR HEMOGLOBIN 31.3 pg (27.0-31.0); MEAN CORPUSCULAR HGB CONC 33.8 g/dL (32.0-36.0); MEAN CORPUSCULAR VOLUME 92.8 fL (80.0-94.0); MEAN PLATELET VOLUME 7.3 fL (7.4-11.4); MONOCYTES # (AUTO) 0.6 10^3/uL (0.0-1.0); MONOCYTES % (AUTO) 7.1 %; NEUTROPHILS # (AUTO) 6.2 10^3/uL (1.5-6.6); NEUTROPHILS % (AUTO) 75.6 %; PLT - PLATELET COUNT 167 10^3/uL (130-450); RED CELL DISTRIBUTION WIDTH 13.4 % (12.0-15.0); WHITE BLOOD COUNT 8.3 x10^3/uL (4.8-10.8)
[2017-12-17 07:34] LABS: ALBUMIN 3.7 g/dL (3.2-5.5); ALBUMIN/GLOBULIN RATIO 1.6 (1.0-2.2); ALKALINE PHOSPHATASE 38 IU/L (42-121); ALT ALANINE AMINOTRANSFERASE < 10 IU/L (10-60); AST ASPARTATE AMINOTRANSFERASE 22 IU/L (10-42); BILIRUBIN,TOTAL 1.1 mg/dL (0.2-1.0); BUN - BLOOD UREA NITROGEN 19 mg/dL (6-20); CALCIUM 8.4 mg/dL (8.5-10.3); CARBON DIOXIDE - CO2 25 mmol/L (21-32); CHLORIDE 107 mmol/L (101-111); CREATININE 1.3 mg/dL (0.6-1.2); GFR - MDRD 54 (>89); GLUCOSE 124 mg/dL (70-100); SODIUM 141 mmol/L (135-145)
[2017-12-17] MEDS ORDERED: CARBIDOPA/LEVODOPA 25 MG/100 MG TABLET PO SCH ×2 (08:00→12:00)
--- NOTE | 2017-12-17 08:40 | ANESTHESIA ---
Pre-Anesthesia VS, & Labs - Diagnosis Diagnosis Acute blood loss anemia secondary to gastrointestinal bleeding in a 76-year male with a history of H. pylori positivity, ulcer, and colonic polyps - Procedure EGD and colonoscopy Vital Signs: Temp Pulse Resp BP Pulse Ox 37.2 C 74 20 135/69 H 98 12/17/17 07:21 12/17/17 07:21 12/17/17 07:21 12/17/17 07:21 12/17/17 07:21 Height 5 ft 9 in Weight (kg) 85.5 kg Body Mass Index 27.6 - NPO >8 hours - Lab Results Current Lab Results: Laboratory Tests 12/17/17 07:18: Sodium 141, Potassium 4.3, Chloride 107, Carbon Dioxide 25, Anion Gap 9.0, BUN 19, Creatinine 1.3 H, Estimated GFR (MDRD) 54 L, Glucose 124 H, Calcium 8.4 L, Total Bilirubin 1.1 H, AST 22, ALT < 10 L, Alkaline Phosphatase 38 L, Total Protein 6.0 L, Albumin 3.7, Globulin 2.3, Albumin/Gl obulin Ratio 1.6 12/17/17 07:18: WBC 8.3, RBC 3.00 L, Hgb 9.4 L, Hct 27.8 L, MCV 92.8, MCH 31.3 H , MCHC 33.8, RDW 13.4, Plt Count 167, MPV 7.3 L, Neut # (Auto) 6.2, Lymph # (Auto) 1.4 L, [place] # (Auto) 0.6, Eos # (Auto) 0.0, Baso # (Auto) 0.0, Absolute Nucleated RBC 0.00, Nucleated RBC % 0.0 12/16/17 16:35: Blood Type A POSITIVE, Antibody Screen NEGATIVE, Crossmatch IS Only See Detail 12/16/17 16:35: Troponin I < 0.04 12/16/17 16:35: Sodium 134 L, Potassium 3.5, Chloride 103, Carbon Dioxide 24, Anion Gap 7.0, BUN 22 H, Creatinine 1.2, Estimated GFR (MDRD) 59 L, Glucose 133 H, Calcium 7.6 L, Total Bilirubin 1.0, AST 19, ALT < 10 L, Alkaline Phosphatase 33 L, Total Protein 5.2 L, Albumin 3.2, Globulin 2.0 L, Albumin/Globulin Ratio 1.6, Lipase 28 12/16/17 16:35: PT 12.7 H, INR 1.1, APTT 23.0 L 12/16/17 16:35: WBC 7.1, RBC 3.00 L, Hgb 9.6 L, Hct 28.0 L, MCV 93.3, MCH 32.0 H , MCHC 34.3, RDW 13.4, Plt Count 161, MPV 8.1, Neut # (Auto) 5.6, Lymph # (Auto) 1.0 L, Highland # (Auto) 0.4, Eos # (Auto) 0.1, Baso # (Auto) 0.0, Absolute Nucleated RBC 0.00, Nucleated RBC % 0.0 Fish Bones: 12/17/17 07:18 12/17/17 07:18 Home Medications and Allergies Home Medications: Ambulatory Orders Medication Instructions Recorded Confirmed Amlodipine Besylate 2.5 mg PO 219912/17/17 12/17/17 Carbidopa/Levodopa [Carbidopa-Levo 1 tab PO 1000,219912/17/17 12/17/17 ER 50-200 Tab] Carbidopa/Levodopa 2 tab PO 0800,1200,1600,2000 12/17/17 12/17/17 [Carbidopa-Levodopa 25-100 Tab] Cholecalciferol (Vitamin D3) 5,[place] [address]/17/17 12/17/17 [Vitamin D3] Cyanocobalamin (Vitamin B-12) 1,[place] [address]/17/17 12/17/17 [Vitamin B-12 (500 mcg sublingual)] LORazepam [Lorazepam] 0.5 mg PO 0600,1200,1800,0000 12/17/17 12/17/17 Levothyroxine [place] [address]/17/17 12/17/17 Losartan Potassium [place] 99912/17/17 12/17/17 Multivitamin [Theragran] [place] 99912/17/17 12/17/17 Ropinirole HCl [Ropinirole ER] 8 mg PO 219912/17/17 12/17/17 Active Medications Carbidopa/Levodopa (Sinemet 25 Mg/100 Mg) 2 tab PO 0800,1200,1600,1999 [facility] Last Admin: 12/17/17 07:52 Dose: 2 tab Carbidopa/Levodopa (Sinemet Cr 50 Mg/200 Mg) 1 tab PO 1000,2200 [facility] Potassium Chloride/Sodium Chloride (Normal Saline 0.9% W/20 Meq Kcl) 1,000 mls @ 83.333 mls/hr IV .Q12H [facility] Last Admin: 12/16/17 21:12 Dose: 83.333 mls/hr Levothyroxine Sodium (Synthroid Inj) 25 mcg IVP ONCE [facility] Stop: 12/17/17 12:00 Last Admin: 12/17/17 06:50 Dose: 25 mcg Lorazepam (Ativan) 0.5 mg PO Q6H [facility] Ondansetron HCl (Zofran Inj) 4 mg IVP Q4HR PRN PRN Reason: Nausea / Vomiting Pantoprazole Sodium (Protonix) 40 mg IV BID [facility] Last Admin: 12/16/17 21:12 Dose: 40 mg Ropinirole 8 Mg Er (Tab) 1 each PO 2199 [facility] Polyethylene Glycol (Miralax) 17 gm PO DAILY [facility] Last Admin: 12/17/17 07:59 Dose: Not Given Sodium Chloride (Normal Saline Flush 0.9%) 10 ml IVP PRN PRN PRN Reason: NEEDED PER PROVIDER ORDERS Last Admin: 12/17/17 00:08 Dose: 10 ml Sodium Chloride (Normal Saline Flush 0.9%) 10 ml IVP 0100,0900,1700 [facility] Last Admin: 12/16/17 21:05 Dose: 10 ml Amlodipine Besylate 2.5 mg PO 219912/17/17 Carbidopa/Levodopa [Carbidopa-Levo ER 50-200 Tab] 1 tab PO 1000,219912/17/17 Carbidopa/Levodopa [Carbidopa-Levodopa 25-100 Tab] 2 tab PO 0800,1200,1600,2000 12/17/17 Cholecalciferol (Vitamin D3) [Vitamin D3] 5,[place] [address]12/17/17 Cyanocobalamin (Vitamin B-12) [Vitamin B-12 (500 mcg sublingual)] 1,[place] [address]/17/17 LORazepam [Lorazepam] 0.5 mg PO 0600,1200,1800,0000 12/17/17 Levothyroxine [place] [address]/17/17 Losartan Pot[place] [address]12/17/17 Multivitamin [Theragran] 1 tab PO 1000 12/17/17 Ropinirole HCl [Ropinirole ER] 8 mg PO 22012/17/17 Allergies/Adverse Reactions: Allergies Allergy/AdvReac Type Severity Reaction Status Date / Time No Known Drug Allergies Allergy Verified 12/16/17 16:31 Anes History & Medical History - Anesthetic History Anesthesia Complications: reports: No previous complications - Medical History Cardiovascular: reports: None Pulmonary: reports: None Gastrointestinal: reports: GERD, GI bleed, Colon polyps Urinary: reports: None Neuro: reports: Parkinson's, Tremors Musculoskeletal: reports: Osteoarthritis, Fatigue, Chronic back pain Endocrine/Autoimmune: reports: None Skin: reports: None Smoking Status: Never smoker - Surgical History General: Colonoscopy (with just polyps several years ago) Cardiothoracic: Valve replacement Exam General: Alert Dental: WNL, Partials Upper Mouth Openin Fingerbreadth Neck Mobility: Limited Mallampati classification: III Thyromental Distance: 4-6 cm Respiratory: Lungs clear Cardiovascular: Regular rate, Normal S1, Normal S2 Mental/Cognitive Status: Alert/Oriented X3 Plan Anesthesia Type: MAC Consent for Procedure(s) Verified and Reviewed: Yes Code Status: Attempt Resuscitation ASA classification: 3-Severe systemic disease Is this case an emergency?: Yes
[2017-12-17] MEDS ORDERED: POLYETHYLENE GLYCOL 3350 17 GM PACKET PO SCH (09:00)
[2017-12-17] MEDS ORDERED: ROPINIROLE 8 MG PO SCH (09:00)
[2017-12-17] MEDS ORDERED: LACTATED RINGERS 1,000 ML IV ONE (09:19)
[2017-12-17] MEDS: SODIUM CHLORIDE FLUSH 0.9% 10 ML SYRINGE IVP SCH (09:24)
[2017-12-17] MEDS ORDERED: ETOMIDATE 40 MG/20 ML VIAL IVP ONE (10:00)
[2017-12-17] MEDS ORDERED: PROPOFOL 200 MG/20 ML VIAL IVP ONE (10:00)
[2017-12-17] MEDS ORDERED: LIDOCAINE-MPF 2% 5 ML VIAL IM ONE (10:00)
[2017-12-17] MEDS ORDERED: CARBIDOPA/LEVODOPA ER 50 MG/200 MG TABLET PO SCH ×2 (10:00→22:00)
--- NOTE | 2017-12-17 10:13 | Discharge Plan ---
Discharge Plan Disposition: 01 Home, Self Care Condition: Good Prescriptions: Pantoprazole [Protonix] 40 mg PO BID #60 tablet Diet: Regular Activity Restrictions: No Restrictions Shower Restrictions: No Additional Instructions or Follow Up instructions: You were admitted for GI bleeding. You completed a bowel prep and underwent an EGD and colonoscopy. During this procedure you were found to have an esophageal stricture (narrowing), with a small tear, that was cauterized. This is the most likely source of your bleeding. Your blood levels stayed in a safe range, but you should get your blood re- checked within a week. You should remain on a twice daily proton pump inhibitor for the next few months. You should plan to be re-scoped in about 3 months as an out patient, and your PC P will help order this test. Please see your PCP within one week. No Smoking: If you smoke, Please STOP! Call for help.
--- NOTE | 2017-12-17 10:15 | DISCHARGE SUMMARY ---
"Discharge Summary Admit Date: 12/16/17 Discharge Date: 12/17/17 Discharging Provider: NIKKIE García Primary Care Provider: Janet Fitzpatrick Code Status: Attempt Resuscitation Condition at Discharge: Good Discharge Disposition: 01 Home, Self Care - DIAGNOSES Admission Diagnoses: Gastrointestinal hemorrhage, unspecified (K92.2) Parkinson's disease (G20) Hypothyroidism, unspecified (E03.9) Gastro-esophageal reflux disease without esophagitis (K21.9) Essential (primary) hypertension (I10) Acute posthemorrhagic anemia (D62) Discharge Diagnoses with Status of Each Condition: Tear of lower esophagus with hemorrhage (K22.6) new on this admission, cauterized during EGD, stable. Esophageal stricture (K22.2) new finding on this admission, continue PPI. GI bleed (K92.2) resolved, stable. Parkinson's disease (G20) chronic, stable. Hypothyroidism (E03.9) chronic, stable. GERD (gastroesophageal reflux disease) (K21.9) chronic, stable. Hypertension (I10) chronic, stable. Anemia associated with acute blood loss (D62) stable. - HPI History of Present Illness: Altaf Sandra (John) is a 76-year old male with a past medical history of GERD, colon polyps, diverticulitis, gastric ulcers from +H. 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 The patient began with a blood stool last evening around 5pm, had a few more episodes overnight and this morning this continued causing him profound weakness, so EMS was called. Once arriving in the ED just after 3pm today the patient was found to be anemic with a hemoglobin of 9.6 and a hematocrit of 28.0, mild kidney dysfunction with an elevated creatinine of 1.2, and a reduced GFR of 59. He was seen by general surgery, Dr. Flowers prior to my admit orders who agrees to begin bowel prep this evening and a scope in the AM. Upon my exam the patient is mildly pale and his is at the bedside for the admission. He will be admitted to observation. - CONSULTS | PROCEDURES Consultations: General surgery-Dr. Flowers Procedures: EGD/colonoscopy - HOSPITAL COURSE Hospital Course: (1) Pre-operative cardiovascular examination Based on the Revised Cardiac Risk Index for pre-operative risk for his upcoming scope procedures; His score is calculated at 0.4%. (2) Lower GI bleeding The patient reports that he has had 5-6 episodes of maroon stools, in addition, had at least 2 episodes overnight. The patient is found to have a below baseline H/H. General surgery was immediately contacted and the patient underwent a colonoscopy/EGD. The patient completed the necessary bowel prep starting the evening prior, was made NPO after MN and Dr. Flowers concluded that he found a small tear (preliminary finding), as the primary source of bleeding. (3) Anemia due to acute blood loss The patient has only mild anemia previously with a hemoglobin baseline of 13.5 and a hematocrit of 41.3, that is now much lower at 9.6/28.0. The patient was noted to have several stools that started in the night, that explains this deficit. On the day of discharge the H/H was stable at 9.4/27.8 and the patient no longer had bloody stools. (4) Hypertension The patient is prescribed lisinopril, and cozaar at home. His blood pressure upon admission was 124/72. His oral blood pressure medications were held prior to his procedures and resumed prior to discharge. (5) Parkinson disease The patient is prescribed Carbidopa/levodopa at home, which was continued here up until a few hours prior to his scope. He has baseline tremors. (6) Hypothyroidism The patient is prescribed synthroid at 50 mcg PO daily at home, which is continued here. His last TSH is unknown. (7) GERD (gastroesophageal reflux disease) The patient is prescribed both zantac and a PPI at home. After confirming this list, this may have inaccurate, so a new prescription was sent to his pharmacy, Protonix to be taken twice daily as per Dr. Flowers request. (8) Tremor due to disorder of central nervous system The patient demonstrates a vigorous, moderate-severe tremor at rest, but denies any problems with swallowing or frequent falls. He is prescribed Carbadopa/levodopa, lorazepam, requip, which is continued here. (9) Esophageal stricture/tear This is a new finding post procedure as per Dr. Flowers. The patient is to stay on a PPI twice daily and plan for a scope in ~3 months. These preliminary results were shared with the patient. Disposition: The patient was back to his baseline after her procedures and is not showing adverse effects from the sedation used for his scopes. His plans to drive him home via private car and he will undergo a repeat scope ~3 months. - ALLERGIES Allergies/Adverse Reactions: Allergies Allergy/AdvReac Type Severity Reaction Status Date / Time No Known Drug Allergies Allergy Verified 12/16/17 16:31 - MEDICATIONS Home Medications: Ambulatory Orders Medication Instructions Recorded Confirmed Amlodipine Besylate 2.5 mg PO 219912/17/17 12/17/17 Carbidopa/Levodopa [Carbidopa-Levo 1 tab PO 1000,219912/17/17 12/17/17 ER 50-200 Tab] Carbidopa/Levodopa 2 tab PO 0800,1200,1600,2000 12/17/17 12/17/17 [Carbidopa-Levodopa 25-100 Tab] Cholecalciferol (Vitamin D3) 5,[place] [address]12/17/17 12/17/17 [Vitamin D3] Cyanocobalamin (Vitamin B-12) 1,[place] [address]12/17/17 12/17/17 [Vitamin B-12 (500 mcg sublingual)] LORazepam [Lorazepam] 0.5 mg PO 0600,1200,1800,0000 12/17/17 12/17/17 Levothyroxine [place] [address]/17/17 12/17/17 Losartan Pot[place] [address]/17/17 12/17/17 Multivitamin [Theragran] [place] [address]/17/17 12/17/17 Pantoprazole [Protonix] 40 mg PO BID #60 tablet 12/17/17 Ropinirole HCl [Ropinirole ER] 8 mg PO 219912/17/17 12/17/17 - PHYSICAL EXAM AT DISCHARGE General Appearance: positive: No acute distress, Alert Eyes Bilateral: positive: PERRL ENT: positive: ENT inspection nml, Pharynx nml, No signs of dehydration Neck: positive: Nml inspection, Thyroid nml, No JVD, Stiff neck Respiratory: positive: Chest non-tender, No respiratory distress Cardiovascular: positive: Regular rate & rhythm, No gallop, Systolic murmur Peripheral Pulses: positive: 2+ Abdomen: positive: Non-tender, Nml bowel sounds Back: positive: Nml inspection Skin: positive: No rash, Warm, Dry Extremities: positive: Non-tender, Full ROM, No pedal edema Neurologic/Psychiatric: positive: Oriented x3, CN's nml (2-12), Weakness, Sensory loss, Depressed mood/affect, Other (resting tremor) Reflexes: Bicep (R): 3+, Bicep (L): 3+ - LABS Result Diagrams: 12/17/17 07:18 12/17/17 07:18 - FOLLOW UP Follow Up: Disposition: Home, Self Care Condition: Good Prescriptions: Pantoprazole [Protonix] 40 mg PO BID #60 tablet Diet: Regular Activity Restrictions: No Restrictions Shower Restrictions: No Additional Instructions or Follow Up instructions: You were admitted for GI bleeding. You completed a bowel prep and underwent an EGD and colonoscopy. During this procedure you were found to have an esophageal stricture (narrowin g), with a small tear, that was cauterized. This is the most likely source of your bleeding. Your blood levels stayed in a safe range, but you should get your blood re- checked within a week. You should remain on a twice daily proton pump inhibitor for the next few months. You should plan to be re-scoped in about 3 months as an out patient, and your PCP will help order this test. Please see your PCP within one week. - TIME SPENT Time Spent in Discharge (Minutes): 50"
[2017-12-17] MEDS: PANTOPRAZOLE 40 MG VIAL IV SCH (10:28)
[2017-12-17] MEDS ORDERED: LORazepam 0.5 MG TABLET PO SCH ×2 (12:00)
[2017-12-17] MEDS ORDERED: CHOLECALCIFEROL 5,000 UNIT CAPSULE PO SCH (12:00)
[2017-12-17 12:03] VITALS: BP 135/78
[2017-12-17] MEDS ORDERED: amLODIPine 5 MG TABLET PO SCH (22:00)
[2017-12-17] MEDS ORDERED: ROPINIROLE HCL 8 MG PO SCH (22:00)
[2017-12-18] MEDS ORDERED: CYANOCOBALAMIN 500 MCG TABLET PO SCH (10:00)
[2017-12-18] MEDS ORDERED: LEVOTHYROXINE 25 MCG TABLET PO SCH (10:00)
[2017-12-18] MEDS ORDERED: LOSARTAN 50 MG TABLET PO SCH (10:00)
[2017-12-18] MEDS ORDERED: MULTIVITAMIN TABLET PO SCH (10:00)
== END 2017-12-17 12:45 | disposition home or self-care (01) ==
LOC: EDUNIT# → ED 16:25 → MS2 18:12
PROVIDERS: ADMIT Nurse Practitioner; ATTEND Nurse Practitioner
PROC: 0DJ08ZZ Inspection of Upper Intestinal Tract, Via Natural or Artificial Opening Endoscopic (ICD-10-PCS; principal; 2017-12-17 09:00)
DX: K92.2 Gastrointestinal hemorrhage, unspecified (principal); D62 Acute posthemorrhagic anemia; K22.2 Esophageal obstruction; K44.9 Diaphragmatic hernia without obstruction or gangrene; K57.30 Diverticulosis of large intestine without perforation or abscess without bleeding; G20 Parkinson's disease; E03.9 Hypothyroidism, unspecified; K21.9 Gastro-esophageal reflux disease without esophagitis; I10 Essential (primary) hypertension; K64.8 Other hemorrhoids; K59.09 Other constipation; K52.9 Noninfective gastroenteritis and colitis, unspecified; G89.29 Other chronic pain; M54.9 Dorsalgia, unspecified; M19.90 Unspecified osteoarthritis, unspecified site; R35.1 Nocturia; G47.00 Insomnia, unspecified; F41.9 Anxiety disorder, unspecified; F32.9 Major depressive disorder, single episode, unspecified; R27.0 Ataxia, unspecified; N28.9 Disorder of kidney and ureter, unspecified; R53.83 Other fatigue; Z95.3 Presence of xenogenic heart valve; Z86.010 Personal history of colon polyps; Z87.11 Personal history of peptic ulcer disease; Z79.82 Long term (current) use of aspirin
CPT/HCPCS: 36415; 43235; 80053; 83690; 84484; 85025; 85610; 85730; 86850; 86900; 86901; 86920; 93005; 96361; 96365; 96375; 99284; A9270; G0378; J7120

== ENCOUNTER 2017-12-18 18:13 | Outpatient (CLI) | payer MEDICARE, OTHER | END 2017-12-18 18:14 | disposition critical access hospital (66) | LOC: EMS 18:13 | PROVIDERS: ATTEND Surgery | DX: K62.5 Hemorrhage of anus and rectum (principal) ==

== ENCOUNTER 2017-12-18 18:24 | Emergency (ER) | payer MEDICARE, OTHER ==
[2017-12-18] MEDS ORDERED: PANTOPRAZOLE 40 MG VIAL IVP STA (18:54)
--- NOTE | 2017-12-18 18:56 | ED Physician Documentation ---
PD HPI ABD PAIN - Stated complaint Stated Complaint: GI BLEED - Chief complaint Chief Complaint: Abd Pain - History obtained from History obtained from: Patient, Family, EMS - History of Present Illness Timing - onset: Today (76-year-old gentleman with recent admission for upper GI bleed. Per the records it sounds like he had some sort of esophageal or gastric tear that was cauterized. He was maintained on a PPI. He was discharged 2 days ago and has not had a bowel movement since but had a large bloody bowel movement tonight while eating. No vomiting or abdominal pain. He has a history of a va lve replacement with a porcine valve, he is not anticoagulated.) Review of Systems Constitutional: denies: Fever, Chills Cardiac: denies: Chest pain / pressure, Palpitations GI: reports: Diarrhea, Bloody / black stool. 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 HEENT: Chronic hearing loss Psych: Depression, Anxiety, Other Musculoskeletal: Osteoarthritis, Fatigue, Chronic back pain Derm: None - Past Surgical History Past Surgical History: Yes General: Colonoscopy, EGD Cardiovascular: Valve replacement - Present Medications Home Medications: Ambulatory Orders Medication Instructions Recorded Confirmed Amlodipine Besylate 2.5 mg PO 0 12/17/17 12/17/17 Carbidopa/Levodopa [Carbidopa-Levo 1 tab PO 1000,2200 12/17/17 12/17/17 ER 50-200 Tab] Carbidopa/Levodopa 2 tab PO 0800,1200,1600,2000 12/17/17 12/17/17 [Carbidopa-Levodopa 25-100 Tab] Cholecalciferol (Vitamin D3) 5,[place] [address]/17/17 12/17/17 [Vitamin D3] Cyanocobalamin (Vitamin B-12) 1,[place] [address]/17/17 12/17/17 [Vitamin B-12 (500 mcg sublingual)] LORazepam [Lorazepam] 0.5 mg PO 0600,1200,1800,0000 12/17/17 12/17/17 Levothyroxine Sodium 50 mcg PO 1000 12/17/17 12/17/17 Losartan Potassium 50 mg PO 1000 12/17/17 12/17/17 Multivitamin [Theragran] 1 tab PO 1000 12/17/17 12/17/17 Pantoprazole [Protonix] 40 mg PO BID #60 tablet 12/17/17 Ropinirole HCl [Ropinirole ER] 8 mg PO 2200 12/17/17 12/17/17 Pantoprazole [Protonix] 40 mg PO 12/18/17 12/18/17 - Allergies Allergies/Adverse Reactions: Allergies Allergy/AdvReac Type Severity Reaction Status Date / Time No Known Drug Allergies Allergy Verified 12/18/17 18:34 - Social History Does the pt smoke?: No Smoking Status: Never smoker Does the pt drink ETOH?: No Does the pt have substance abuse?: No - Immunizations Immunizations are current?: Yes - POLST Patient has POLST: No POLST Status: Full Code PD ED PE NORMAL - Vitals Vital signs reviewed: Yes - General General: Alert and oriented X 3, No acute distress, Other (Parkinsonian tremor) - HEENT HEENT: PERRL, EOMI - Neck Neck: Supple, no meningeal sign, No bony TTP - Cardiac Cardiac: RRR, No murmur - Respiratory Respiratory: No respiratory distress, Clear bilaterally - Abdomen Abdomen: Normal bowel sounds, Soft, Non tender - Rectal Rectal: Other (Incontinent of melena) - Back Back: No CVA TTP, No spinal TTP - Extremities Extremities: No edema, No calf tenderness / cord - Neuro Neuro: Alert and oriented X 3, Normal speech Eye Opening: Spontaneous Motor: Obeys Commands Verbal: Oriented GCS Score: 15 - Psych Psych: Normal mood, Normal affect Results - Vitals Vitals: Vital Signs - 24 hr 12/18/17 18:32 Temperature 37.2 C Heart Rate 70 Respiratory 20 Rate Blood Pressure 114/79 O2 Saturation 100 Oxygen O2 Source Room air PD MEDICAL DECISION MAKING - ED course ED course: 76-year-old gentleman with recent admission for upper GI bleeding. On that admit his hemoglobin was 9-1/2 or so. Scopes as discussed in the HPI. Tonight he returns with melena and his hemoglobin is 2 points lower. He is hemodynamically stable but given ongoing bleeding he will be transfused. Unfortunately this hospital is full and has no beds available and will need to be transferred for further evaluation and treatment. He was accepted by Dr. Brody at [place]. Cobras were completed. He was administered IV Protonix as well as one unit of blood here. - Sepsis Event Vital Signs: Vital Signs - 24 hr 12/18/17 18:32 Temperature 37.2 C Heart Rate 70 Respiratory 20 Rate Blood Pressure 114/79 O2 Saturation 100 Oxygen O2 Source Room air Departure - Departure Disposition: 02 Transfer Acute Care Hosp Clinical Impression: Anemia due to acute blood loss, Parkinson disease, Upper GI bleeding Condition: Serious
[2017-12-18 19:42] LABS: BASOPHILS % (AUTO) 0.6 %; EOSINOPHILS # (AUTO) 0.1 10^3/uL (0.0-0.7); EOSINOPHILS % (AUTO) 1.2 %; HGB - HEMOGLOBIN 7.7 g/dL (14.0-18.0); LYMPHOCYTES # (AUTO) 1.2 10^3/uL (1.5-3.5); LYMPHOCYTES % (AUTO) 19.2 %; MEAN CORPUSCULAR HEMOGLOBIN 32.1 pg (27.0-31.0); MEAN CORPUSCULAR HGB CONC 34.6 g/dL (32.0-36.0); MEAN PLATELET VOLUME 7.4 fL (7.4-11.4); MONOCYTES # (AUTO) 0.4 10^3/uL (0.0-1.0); MONOCYTES % (AUTO) 6.5 %; NEUTROPHILS # (AUTO) 4.5 10^3/uL (1.5-6.6); NEUTROPHILS % (AUTO) 72.5 %; PLT - PLATELET COUNT 145 10^3/uL (130-450); RED BLOOD COUNT 2.41 10^6/uL (4.70-6.10); RED CELL DISTRIBUTION WIDTH 13.3 % (12.0-15.0); WHITE BLOOD COUNT 6.2 x10^3/uL (4.8-10.8)
[2017-12-18 19:50] LABS: PT - PROTHROMBIN TIME 11.6 secs (9.9-12.6)
[2017-12-18 19:57] LABS: ALBUMIN 3.6 g/dL (3.2-5.5); ALBUMIN/GLOBULIN RATIO 1.6 (1.0-2.2); ALKALINE PHOSPHATASE 33 IU/L (42-121); ALT ALANINE AMINOTRANSFERASE < 10 IU/L (10-60); AST ASPARTATE AMINOTRANSFERASE 26 IU/L (10-42); BILIRUBIN,TOTAL 0.8 mg/dL (0.2-1.0); BUN - BLOOD UREA NITROGEN 20 mg/dL (6-20); CALCIUM 8.3 mg/dL (8.5-10.3); CARBON DIOXIDE - CO2 25 mmol/L (21-32); CHLORIDE 106 mmol/L (101-111); CREATININE 1.2 mg/dL (0.6-1.2); GFR - MDRD 59 (>89); GLUCOSE 103 mg/dL (70-100); LIPASE 30 U/L (22-51); SODIUM 138 mmol/L (135-145); TOTAL PROTEIN 5.8 g/dL (6.7-8.2)
[2017-12-18 21:45] VITALS: BP 140/74
== END 2017-12-18 22:13 | disposition short-term general hospital (02) ==
LOC: EDUNIT# → ED 18:24
DX: D62 Acute posthemorrhagic anemia (principal); G20 Parkinson's disease; K92.2 Gastrointestinal hemorrhage, unspecified; Z95.2 Presence of prosthetic heart valve
CPT/HCPCS: 36415; 80053; 83690; 84484; 85025; 85610; 86850; 86900; 86901; 86920; 96374; 99284; 99285; P9016

== ENCOUNTER 2017-12-18 22:10 | Outpatient (CLI) | payer MEDICARE, OTHER | END 2017-12-18 22:11 | disposition short-term general hospital (02) | LOC: EMS 22:10 | PROVIDERS: ATTEND Surgery | DX: K62.5 Hemorrhage of anus and rectum (principal) | CPT/HCPCS: A0425; A0426; A0429 ==

== ENCOUNTER 2018-04-04 10:32 | Outpatient (CLI) | payer MEDICARE, OTHER ==
[2018-04-04 11:11] LABS: BUN - BLOOD UREA NITROGEN 17 mg/dL (6-20); CARBON DIOXIDE - CO2 28 mmol/L (21-32); CHLORIDE 98 mmol/L (101-111); CHOL/HDL RATIO 3.3 (<5.0); CHOLESTEROL 207 mg/dL; CREATININE 1.2 mg/dL (0.6-1.2); GFR - MDRD 59 (>89); GLUCOSE 97 mg/dL (70-100); HDL CHOLESTEROL 62 mg/dL; LDL CHOLESTEROL,CALCULATED 135 mg/dL; LDL/HDL RATIO 2.2 (<3.6); SODIUM 135 mmol/L (135-145); VLDL CHOLESTEROL 10 mg/dL
== END 2018-04-04 10:33 | disposition home or self-care (01) ==
LOC: LAB 10:32
PROVIDERS: ATTEND Nurse Practitioner
DX: I10 Essential (primary) hypertension (principal); R06.09 Other forms of dyspnea; R01.1 Cardiac murmur, unspecified; R60.0 Localized edema
CPT/HCPCS: 36415; 80048; 80061; 83721; 83880

== ENCOUNTER 2018-04-18 10:00 | Outpatient (CLI) | payer MEDICARE, OTHER | END 2018-04-18 10:01 | disposition home or self-care (01) | LOC: LAB 10:00 | PROVIDERS: ATTEND Nurse Practitioner | DX: R00.1 Bradycardia, unspecified (principal) | CPT/HCPCS: 36415; 84443 ==

== ENCOUNTER 2018-05-10 16:27 | Emergency (ER) | payer MEDICARE, OTHER ==
[2018-05-10 16:36] VITALS: BP 161/93
[2018-05-10] MEDS ORDERED: HYDROcod/ACETAM 5/325 MG TABLET PO STA (16:45)
--- NOTE | 2018-05-10 16:48 | ED Physician Documentation ---
PD HPI BACK PAIN - Stated complaint Stated Complaint: BACK PAIN - Chief complaint Chief Complaint: Back Pain - History obtained from History obtained from: Patient - History of Present Illness Timing - onset: Other (77-year-old gentleman with history of back pain and GI bleeding and Parkinson's presents with 3 weeks of right low back pain that is worse with standing, twisting and bending. Pain is not too bad when he is not moving. There is no radiation of the pain, no abdominal pain. He does not feel weak number tingling in the legs or saddle area. 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 HEENT: Chronic hearing loss Psych: Depression, Anxiety, Other Musculoskeletal: Osteoarthritis, Fatigue, Chronic back pain Derm: None - Past Surgical History Past Surgical History: Yes General: Colonoscopy, EGD Cardiovascular: Valve replacement - Present Medications Home Medications: Ambulatory Orders Medication Instructions Recorded Confirmed Amlodipine Besylate 2.5 mg PO 0 12/17/17 12/17/17 Carbidopa/Levodopa [Carbidopa-Levo 1 tab PO 1000,0 12/17/17 12/17/17 ER 50-200 Tab] Carbidopa/Levodopa 2 tab PO 0800,1200,1600,2000 12/17/17 12/17/17 [Carbidopa-Levodopa 25-100 Tab] Cholecalciferol (Vitamin D3) 5,[place] [address]/17/17 12/17/17 [Vitamin D3] Cyanocobalamin (Vitamin B-12) 1,[place] [address]/17/17 12/17/17 [Vitamin B-12 (500 mcg sublingual)] LORazepam [Lorazepam] 0.5 mg PO 0600,1200,1800,0000 12/17/17 12/17/17 Levothyroxine [place] [address]/17/17 12/17/17 Losartan Pot[place] [address]/17/17 12/17/17 Multivitamin [[place]agran] [place] [address]/17/17 12/17/17 Pantoprazole [Protonix] 40 mg PO BID #60 tablet 12/17/17 Ropinirole HCl [Ropinirole ER] 8 mg PO 2200 12/17/17 12/17/17 Pantoprazole [Protonix] 40 mg PO 12/18/17 12/18/17 Hydrocodone/Acetaminophen 1 - 2 each PO Q6H PRN #14 tablet 05/10/18 [Hydrocodon-Acetaminophen 5-325] - Allergies Allergies/Adverse Reactions: Allergies Allergy/AdvReac Type Severity Reaction Status Date / Time No Known Drug Allergies Allergy Verified 05/10/18 16:36 - Social History Does the pt smoke?: No Smoking Status: Never smoker Does the pt drink ETOH?: No Does the pt have substance abuse?: No - Immunizations Immunizations are current?: Yes - POLST Patient has POLST: No POLST Status: Full Code PD ED PE NORMAL - Vitals Vital signs reviewed: Yes - General General: Alert and oriented X 3, No acute distress, Other (Parkinsonian tremor) - Abdomen Abdomen: Soft, Non tender - Back Back: No spinal TTP, Other (Tender to the right paralumbar muscles) - Extremities Extremities: Other (The patient has equal and normal Achilles and patellar reflexes bilaterally. Normal sensation in all areas of the legs. Patient denies saddle anesthesia. Normal strength in flexion-extension at the ankles, knees, and flexion of the hips.) - Neuro Neuro: Alert and oriented X 3, Normal speech Results - Vitals Vitals: Vital Signs - 24 hr 05/10/18 16:34 Temperature 36.5 C Heart Rate 64 Respiratory 20 Rate Blood Pressure 161/93 H O2 Saturation 99 Oxygen O2 Source Room air PD MEDICAL DECISION MAKING - ED course ED course: This is a 77-year-old gentleman with recurrent low back pain, by history and physical there is no evidence of anything other than muscle spasm, conservative care was advised. He was taking NSAIDs at home and given the history of GI bleeding he was advised not to take naproxen/Aleve or Motrin/ibuprofen. Departure - Departure Disposition: 01 Home, Self Care Clinical Impression: Back pain Qualifiers: Back pain location: low back pain Chronicity: acute Back pain laterality: right Sciatica presence: without sciatica Qualified Code(s): M54.5 - Low back pain Condition: Good Record reviewed to determine appropriate education?: Yes Instructions: ED Neck Back Pain General Prescriptions: Hydrocodone/Acetaminophen [Hydrocodon-Acetaminophen 5-325] 1 - 2 each PO Q6H PRN #14 tablet PRN Reason: pain Comments: Call your doctor to arrange a follow-up appointment, make the next available appointment. In the interim, return anytime if worse or if new symptoms develop. Your blood pressure was elevated today on check into the emergency department. This does not mean that you have hypertension, it is a common phenomenon to come to the emergency department and have elevated blood pressure. I recommend that you see your primary care physician within the week to have it rechecked when you are feeling better. Do not drink or drive while taking narcotic pain medication. Note that many narcotic pain relievers also contain Tylenol/acetaminophen. Please ensure that your total dose of acetaminophen from all sources does not exceed 3 g (3000 mg) per day. You may get constipated while on this medication. Take a stool softener such as Colace twice a day while you are on it. Also add an [id number] laxative such as senna or MiraLAX on any day that you do not have a bowel movement. If you received a narcotic pain medication or sedative while in the emergency department, do not drive for the next 24 hours.
== END 2018-05-10 16:51 | disposition home or self-care (01) ==
LOC: ED 16:27
DX: M54.5 Low back pain (principal); R03.0 Elevated blood-pressure reading, without diagnosis of hypertension; G20 Parkinson's disease; Z95.2 Presence of prosthetic heart valve
CPT/HCPCS: 99283; A9270

== ENCOUNTER 2018-06-09 12:43 | Emergency (ER) | payer MEDICARE, OTHER ==
[2018-06-09 13:00] VITALS: BP 132/82
--- NOTE | 2018-06-09 13:19 | ED Physician Documentation ---
PD HPI WOUND RECHECK - Stated complaint Stated Complaint: WOUND/BANDAGE CHECK - Chief complaint Chief Complaint: Wound - Histroy obtained from History obtained from: Patient - History of Present Illness Location: Scalp (He had deep brain stimulator surgery at [facility] 3 days ago. His discharge instructions state that he can remove the dressing today but he would like to have that done here. 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 HEENT: Chronic hearing loss Psych: Depression, Anxiety, Other Musculoskeletal: Osteoarthritis, Fatigue, Chronic back pain Derm: None - Past Surgical History Past Surgical History: Yes General: Colonoscopy, EGD Cardiovascular: Valve replacement - Present Medications Home Medications: Ambulatory Orders Medication Instructions Recorded Confirmed Amlodipine Besylate 2.5 mg PO 219912/17/17 12/17/17 Carbidopa/Levodopa [Carbidopa-Levo 1 tab PO 999,219912/17/17 12/17/17 ER 50-200 Tab] Carbidopa/Levodopa 2 tab PO 0800,1200,1600,2000 12/17/17 12/17/17 [Carbidopa-Levodopa 25-100 Tab] Cholecalciferol (Vitamin D3) 5,[place] [address]/17/17 12/17/17 [Vitamin D3] Cyanocobalamin (Vitamin B-12) 1,[place] [address]/17/17 12/17/17 [Vitamin B-12 (500 mcg sublingual)] LORazepam [Lorazepam] 0.5 mg PO 0600,1200,1800,0000 12/17/17 12/17/17 Levothyroxine [place] [address]/17/17 12/17/17 Losartan Pot[place] [address]/17/17 12/17/17 Multivitamin [Theragran] [place] [address]/17/17 12/17/17 Pantoprazole [Protonix] 40 mg PO BID #60 tablet 12/17/17 Ropinirole HCl [Ropinirole ER] 8 mg PO 219912/17/17 12/17/17 Pantoprazole [Protonix] 40 mg PO 10/01/18 10/01/18 Hydrocodone/Acetaminophen 1 - 2 each PO Q6H PRN #14 tablet 05/10/18 [Hydrocodon-Acetaminophen 5-325] - Allergies Allergies/Adverse Reactions: Allergies Allergy/AdvReac Type Severity Reaction Status Date / Time No Known Drug Allergies Allergy Verified 05/10/18 16:36 - Social History Does the pt smoke?: No Smoking Status: Never smoker Does the pt drink ETOH?: No Does the pt have substance abuse?: No - Immunizations Immunizations are current?: Yes - POLST Patient has POLST: No POLST Status: Full Code PD ED PE NORMAL - Vitals Vital signs reviewed: Yes - General General: Alert and oriented X 3, No acute distress - HEENT HEENT: PERRL, EOMI, Other (There is a semicircular incision over the left frontal area. The overlying dressing is removed without issue and the incision is sutured with a running suture, it is clean dry and intact without any evidence of infection.) - Neck Neck: Supple, no meningeal sign, No bony TTP - Psych Psych: Normal mood, Normal affect Results - Vitals Vitals: Vital Signs - 24 hr 06/09/18 12:57 Temperature 36.5 C Heart Rate 58 L Respiratory 14 Rate Blood Pressure 132/82 H O2 Saturation 100 Oxygen O2 Source Room air Departure - Departure Disposition: 01 Home, Self Care Clinical Impression: Suture check Condition: Good Record reviewed to determine appropriate education?: Yes Comments: Follow the instructions given to you by your neuro surgeon at [facility], your follow-up appointment is scheduled for June 20. Return for new or worsening symptoms.
== END 2018-06-09 13:32 | disposition home or self-care (01) ==
LOC: ED 12:43
DX: Z48.01 Encounter for change or removal of surgical wound dressing (principal); G20 Parkinson's disease
CPT/HCPCS: 99281

== ENCOUNTER 2019-01-02 13:49 | Emergency (ER) | payer MEDICARE, OTHER ==
[2019-01-02 14:04] VITALS: BP 117/75
--- NOTE | 2019-01-02 15:33 | ED Physician Documentation ---
PD HPI SKIN - Stated complaint Stated Complaint: WOUND UNDER RT EAR - Chief complaint Chief Complaint: Wound - History obtained from History obtained from: Patient - History of Present Illness Timing - onset: Other (78-year-old gentleman has a deep brain stimulator. 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 : None HEENT: Chronic hearing loss Psych: Depression, Anxiety, Other Musculoskeletal: Osteoarthritis, Fatigue, Chronic back pain Derm: None - Past Surgical History Past Surgical History: Yes General: Colonoscopy, EGD Cardiovascular: Valve replacement - Present Medications Home Medications: Ambulatory Orders Medication Instructions Recorded Confirmed Amlodipine Besylate 2.5 mg PO 219912/17/17 12/17/17 Carbidopa/Levodopa [Carbidopa-Levo 1 tab PO 999,219912/17/17 12/17/17 ER 50-200 Tab] Carbidopa/Levodopa 2 tab PO 0800,1200,1600,2000 12/17/17 12/17/17 [Carbidopa-Levodopa 25-100 Tab] Cholecalciferol (Vitamin D3) 5,[place] [address]/17/17 12/17/17 [Vitamin D3] Cyanocobalamin (Vitamin B-12) 1,[place] [address]/17/17 12/17/17 [Vitamin B-12 (500 mcg sublingual)] LORazepam [Lorazepam] 0.5 mg PO 0600,1200,1800,0000 12/17/17 12/17/17 Levothyroxine [place] [address]/17/17 12/17/17 Losartan Pot[place] [address]/17/17 12/17/17 Multivitamin [Theragran] [place] [address]/17/17 12/17/17 Pantoprazole [Protonix] 40 mg PO BID #60 tablet 12/17/17 Ropinirole HCl [Ropinirole ER] 8 mg PO 219912/17/17 12/17/17 Pantoprazole [Protonix] 40 mg PO 12/18/17 12/18/17 Hydrocodone/Acetaminophen 1 - 2 each PO Q6H PRN #14 tablet 05/10/18 [Hydrocodon-Acetaminophen 5-325] Cephalexin [Keflex] 500 mg PO Q6H #28 capsule 01/02/19 - Allergies Allergies/Adverse Reactions: Allergies Allergy/AdvReac Type Severity Reaction Status Date / Time No Known Drug Allergies Allergy Verified 01/02/19 14:01 - Social History Does the pt smoke?: No Smoking Status: Never smoker Does the pt drink ETOH?: No Does the pt have substance abuse?: No - Immunizations Immunizations are current?: Yes - POLST Patient has POLST: No POLST Status: Full Code PD ED PE NORMAL - Vitals Vital signs reviewed: Yes - General General: Alert and oriented X 3, No acute distress - HEENT HEENT: Other (There is a tiny lesion on the left neck. Skin based. It overlies the palpable hardware from his deep brain stimulator but is mobile away from it. There is no real source or evidence of infection per se. It looks like may be a small mole or something.) - Neck Neck: Supple, no meningeal sign, No bony TTP Results - Vitals Vitals: Vital Signs - 24 hr 01/02/19 14:01 Temperature 36.9 C Heart Rate 53 L Respiratory 15 Rate Blood Pressure 117/75 O2 Saturation 66 L Oxygen O2 Source Room air Departure - Departure Disposition: 01 Home, Self Care Clinical Impression: Skin lesion Condition: Good Record reviewed to determine appropriate education?: Yes Follow-Up: [facility] [Provider Group] - Within 1 week Prescriptions: Cephalexin [Keflex] 500 mg PO Q6H #28 capsule Comments: Lesion does not look infected to me. It is quite small. That said as you noted It overlies your deep brain stimulator. As such out of an abundance of caution I am putting on oral antibiotics. You can put Benadryl ointment on it for the itching and you should follow-up with A family and consumer science professor.
== END 2019-01-02 15:42 | disposition home or self-care (01) ==
LOC: ED 13:49
DX: L98.8 Other specified disorders of the skin and subcutaneous tissue (principal); Z96.82 Presence of neurostimulator; G20 Parkinson's disease
CPT/HCPCS: 99282; 99283

== ENCOUNTER 2019-04-06 10:47 | Emergency (ER) | payer MEDICARE, OTHER ==
[2019-04-06 11:15] VITALS: BP 133/82
--- NOTE | 2019-04-06 12:41 | ED Physician Documentation ---
History of Present Illness - Stated complaint Stated Complaint: COUGH - Chief complaint Chief Complaint: Resp - Additonal information Additional information: This is a 78-year-old male with a history of valve replacement with a prosthetic valve 3 years ago in [facility]', who presents with a cough for 3 weeks. His and the patient got sick with a similar viral type syndrome several weeks ago with runny nose, low-grade fever, and cough, patient had mostly a cough and this is been fairly persistent since that time. It is worse at night when he lays down for the first 30 minutes or so, then it improves. It is productive of white to yellow sputum at times. He denies fever, no vomiting, no chills. He denies any chest pain. At times was coughing he felt slightly short of breath, but this resolves completely between episodes. No leg swelling. 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 : None HEENT: Chronic hearing loss Psych: Depression, Anxiety, Other Musculoskeletal: Osteoarthritis, Fatigue, Chronic back pain Derm: None - Past Surgical History Past Surgical History: Yes General: Colonoscopy, EGD Cardiovascular: Valve replacement - Present Medications Home Medications: Ambulatory Orders Medication Instructions Recorded Confirmed Amlodipine Besylate 2.5 mg PO 219912/17/17 12/17/17 Carbidopa/Levodopa [Carbidopa-Levo 1 tab PO 1000,219912/17/17 12/17/17 ER 50-200 Tab] Carbidopa/Levodopa 2 tab PO 0800,1200,1600,2000 12/17/17 12/17/17 [Carbidopa-Levodopa 25-100 Tab] Cholecalciferol (Vitamin D3) 5,[place] [address]12/17/17 12/17/17 [Vitamin D3] Cyanocobalamin (Vitamin B-12) 1,000 mcg PO 1000 12/17/17 12/17/17 [Vitamin B-12 (500 mcg sublingual)] LORazepam [Lorazepam] 0.5 mg PO 0600,1200,1800,0000 12/17/17 12/17/17 Levothyroxine Sodium 50 mcg PO 1000 12/17/17 12/17/17 Losartan Pot[place] [address]/17/17 12/17/17 Multivitamin [[place]agran] [place] [address]/17/17 12/17/17 Pantoprazole [Protonix] 40 mg PO BID #60 tablet 12/17/17 Ropinirole HCl [Ropinirole ER] 8 mg PO 2200 12/17/17 12/17/17 Pantoprazole [Protonix] 40 mg PO 12/18/17 12/18/17 Hydrocodone/Acetaminophen 1 - 2 each PO Q6H PRN #14 tablet 05/10/18 [Hydrocodon-Acetaminophen 5-325] Cephalexin [Keflex] 500 mg PO Q6H #28 capsule 01/02/19 Doxycycline Hyclate 100 mg PO BID #14 capsule 04/06/19 - Allergies Allergies/Adverse Reactions: Allergies Allergy/AdvReac Type Severity Reaction Status Date / Time No Known Drug Allergies Allergy Verified 04/06/19 11:15 - Social History Does the pt smoke?: No Smoking Status: Never smoker Does the pt drink ETOH?: No Does the pt have substance abuse?: No - Immunizations Immunizations are current?: Yes - POLST Patient has POLST: No POLST Status: Full Code PD ED PE NORMAL - Vitals Vital signs reviewed: Yes - General General: Alert and oriented X 3, No acute distress - HEENT HEENT: PERRL - Neck Neck: Supple, no meningeal sign - Cardiac Cardiac: RRR, No murmur - Respiratory Respiratory: No respiratory distress, Clear bilaterally - Abdomen Abdomen: Soft, Non tender, Non distended - Derm Derm: Warm and dry - Extremities Extremities: No deformity - Neuro Neuro: Alert and oriented X 3 - Psych Psych: Normal mood, Normal affect Results - Vitals Vitals: Oxygen O2 Source Room air - Rads (name of study) POC US Radiology: Other (No significant pleural effusions, no pericardial effusion, EF appears grossly normal. Incidental right renal cyst which is simple appearing, as well as some variation in echotexture of the liver are noted.) CXR Radiology: See rad report (Hazy bibasilar pulmonary opacities could represent atelectasis versus early pneumonia) PD MEDICAL DECISION MAKING - ED course Complexity details: considered differential (Viral syndrome, post viral cough, pneumonia, bronchitis, heart failure) ED course: Pt is well appearing on exam. Patient has no lower extremity edema, had a echocardiogram Within the last 6 months which was reportedly unremarkable, he has no chest pain, his breathing feels normal at this time, his chest x-ray does not show cardiomegaly or edema, and his ejection fraction appears normal on my bedside echo. His symptoms are unlikely to be cardiac in nature. His history makes infectious cause more likely, and CXR does show bibasilar opacities. This may be a post-viral cough or URI, but given his XR findings after discussion with the patient we will treat with doxycycline. I discussed that if he is not improving or if he is having any worsening, he needs to return to the ED for re-evaluation and further testing. I discussed PCP follow up and specific return precautions. Pt agreed and was discharged home in good condition. Departure - Departure Disposition: 01 Home, Self Care Clinical Impression: Pneumonia Qualifiers: Pneumonia type: due to unspecified organism Laterality: bilateral Lung location: lower lobe of lung Qualified Code(s): J18.9 - Pneumonia, unspecified organism Condition: Good Follow-Up: Jeremy Tejeda MD [Primary Care Provider] - (Early next week for a recheck and to discuss incidental Ultrasound findings (R renal cyst, different echotexture of liver)) Prescriptions: Doxycycline Hyclate 100 mg PO BID #14 capsule Comments: You are seen today for a cough. Your x-ray suggested early pneumonia, we will treat you with a course of doxycycline for this. If you are not having improvement, or especially if you are feeling worse, becoming short of breath, coughing up blood, developing fever, having chest pain, or having any other concerning symptoms, return to the emergency department. Even if you are feeling better, please follow-up with your primary care provider early next week. When I was doing my ultrasound I found a right renal cyst, and there was variation in the texture of your liver, I think it would be reasonable to consider an abdominal ultrasound to take a look at these organs with more depth, though I do not think that this is related to your symptoms today. Please discuss these findings with your primary care provider Discharge Date/Time: 04/06/19 13:53
--- NOTE | 2019-04-06 12:57 | XRAY Report ---
Reason: cough for several weeks Procedure Date: 04/06/2019 Accession Number: [id number] / [id number] Procedure: XR - Chest 2 View X-Ray CPT Code: 76494 Final Report FULL RESULT: EXAM: CHEST RADIOGRAPHY EXAM DATE: 04/06/2019 12:50 PM. CLINICAL HISTORY: Cough for several weeks. COMPARISON: CHEST 2 VIEW 05/22/2017 6:48 PM. TECHNIQUE: 2 views. FINDINGS: Lungs/Pleura: Hazy bibasilar pulmonary opacities could reflect atelectasis or mild pneumonia. Upper lungs are clear. No pneumothorax. No pleural effusions evident. Mediastinum: Stable heart size and mediastinum. Other: Interval placement of generator for neurostimulator device. IMPRESSION: 1. Hazy bibasilar pulmonary opacities could reflect atelectasis or mild pneumonia. RADIA
== END 2019-04-06 13:53 | disposition home or self-care (01) ==
LOC: ED 10:47
DX: J18.9 Pneumonia, unspecified organism (principal); N28.1 Cyst of kidney, acquired; G20 Parkinson's disease; Z95.2 Presence of prosthetic heart valve
CPT/HCPCS: 71046; 99283; 99284

== ENCOUNTER 2019-04-25 12:33 | Outpatient (CLI) | payer MEDICARE, OTHER ==
[2019-04-25 12:58] LABS: BASOPHILS % (AUTO) 0.6 %; EOSINOPHILS # (AUTO) 0.3 10^3/uL (0.0-0.7); EOSINOPHILS % (AUTO) 5.3 %; LYMPHOCYTES # (AUTO) 1.1 10^3/uL (1.5-3.5); LYMPHOCYTES % (AUTO) 22.4 %; MEAN CORPUSCULAR HEMOGLOBIN 31.3 pg (27.0-31.0); MEAN CORPUSCULAR HGB CONC 33.3 g/dL (32.0-36.0); MEAN PLATELET VOLUME 9.2 fL (7.4-11.4); MONOCYTES # (AUTO) 0.4 10^3/uL (0.0-1.0); MONOCYTES % (AUTO) 8.2 %; NEUTROPHILS # (AUTO) 3.1 10^3/uL (1.5-6.6); NEUTROPHILS % (AUTO) 63.3 %; PLT - PLATELET COUNT 195 10^3/uL (130-450); RED BLOOD COUNT 4.47 10^6/uL (4.70-6.10); WHITE BLOOD COUNT 4.9 x10^3/uL (4.8-10.8)
[2019-04-25 13:30] LABS: ALBUMIN 4.2 g/dL (3.2-5.5); ALBUMIN/GLOBULIN RATIO 1.4 (1.0-2.2); ALKALINE PHOSPHATASE 47 IU/L (42-121); ALT ALANINE AMINOTRANSFERASE < 10 IU/L (10-60); AST ASPARTATE AMINOTRANSFERASE 19 IU/L (10-42); BILIRUBIN,TOTAL 1.1 mg/dL (0.2-1.0); BUN - BLOOD UREA NITROGEN 17 mg/dL (6-20); CARBON DIOXIDE - CO2 30 mmol/L (21-32); CHLORIDE 98 mmol/L (101-111); CHOL/HDL RATIO 3.8 (<5.0); CHOLESTEROL 199 mg/dL; CREATININE 1.3 mg/dL (0.6-1.2); GFR - MDRD 54 (>89); GLUCOSE 95 mg/dL (70-100); HDL CHOLESTEROL 52 mg/dL; LDL CHOLESTEROL,CALCULATED 131 mg/dL; LDL/HDL RATIO 2.5 (<3.6); SODIUM 137 mmol/L (135-145); TOTAL PROTEIN 7.2 g/dL (6.7-8.2); VLDL CHOLESTEROL 16 mg/dL
[2019-04-25 13:32] LABS: HB2 TOTAL 13.6 g/dL; HEMOGLOBIN A1C 0.56 g/dL; HEMOGLOBIN A1C % 5.9 % (4.6-6.2)
== END 2019-04-25 12:34 | disposition home or self-care (01) ==
LOC: LAB 12:33
PROVIDERS: ATTEND Family Medicine
DX: F41.9 Anxiety disorder, unspecified (principal); E78.5 Hyperlipidemia, unspecified; E03.9 Hypothyroidism, unspecified; I10 Essential (primary) hypertension; R41.89 Other symptoms and signs involving cognitive functions and awareness
CPT/HCPCS: 36415; 80053; 80061; 83036; 83721; 84443; 85025

== ENCOUNTER 2020-04-17 16:17 | Outpatient (CLI) | payer MEDICARE | END 2020-04-17 16:18 | disposition home or self-care (01) | LOC: COV 16:17 | PROVIDERS: ATTEND Ophthalmology | DX: Z01.812 Encounter for preprocedural laboratory examination (principal); H25.812 Combined forms of age-related cataract, left eye; Z20.822 Contact with and (suspected) exposure to COVID-19 ==

== ENCOUNTER 2020-04-23 06:27 | Day surgery (SDC) | payer MEDICARE ==
[~2020-04-23 06:27] MED LIST: KETOROLAC 0.45% OPHTH DROPS ONE; PHENYLEPHRINE 2.5% OPHTH 2 ML DROPS ONE; PROPARACAINE 0.5% OPHTH DROPS 15 ML ONE
[2020-04-23] MEDS ORDERED: LACTATED RINGERS 500 ML IV ONE ×2 (06:52→07:55)
--- NOTE | 2020-04-23 07:04 | ANESTHESIA ---
Pre-Anesthesia VS, & Labs - Diagnosis left eye senile combined cataract - Procedure cataract extraction with probable IOL implant Vital Signs: Temp Pulse Resp BP Pulse Ox 36.4 C L 54 L 16 139/71 H 93 04/23/20 06:40 04/23/20 06:40 04/23/20 06:40 04/23/20 06:40 04/23/20 06:40 Height: 5 ft 10 in Weight (kg): 84.9 kg Body Mass Index: 26.8 BMI Classification: Overweight - NPO >8 hours Home Medications and Allergies Amlodipine Besylate 2.5 mg PO 219912/17/17 Carbidopa/Levodopa [Carbidopa-Levo ER 50-200 Tab] 1 tab PO 1000,219912/17/17 Carbidopa/Levodopa [Carbidopa-Levodopa 25-100 Tab] 2 tab PO 0800,1200,1600,2000 12/17/17 Cholecalciferol (Vitamin D3) [Vitamin D3] 5,[place] [address]12/17/17 Cyanocobalamin (Vitamin B-12) [Vitamin B-12 (500 mcg sublingual)] 1,000 [place] [address]12/17/17 LORazepam [Lorazepam] 0.5 mg PO 0600,1200,1800,0000 12/17/17 Levothyroxine S[place] [address]/17/17 Losartan Potassium 50 [place] 99912/17/17 Multivitamin [Theragran] [place] [address]/17/17 Ropinirole HCl [Ropinirole ER] 8 mg PO 219912/17/17 Allergies/Adverse Reactions: Allergies Allergy/AdvReac Type Severity Reaction Status Date / Time No Known Drug Allergies Allergy Verified 04/06/19 11:15 Anes History & Medical History - Medical History Cardiovascular: reports: Valve disorder (aortic valve replacement) Pulmonary: reports: None Gastrointestinal: reports: GERD, GI bleed, Colon polyps Urinary: reports: None Neuro: reports: Parkinson's (DBS), Tremors, Other (restless leg syndrome) Musculoskeletal: reports: Osteoarthritis, Fatigue, Chronic back pain Endocrine/Autoimmune: reports: HyPOthyroidism Blood Disorders: reports: None Skin: reports: None Smoking Status: Never smoker Psychosocial: reports: No issues indicated History of Cancer?: No - Surgical History General: Colonoscopy, EGD Cardiothoracic: Valve replacement (Aortic valve replacement) Exam General: Alert, Oriented x3, Cooperative, No acute distress Dental: WNL Mouth Openin Fingerbreadth Neck Mobility: Reduced Mallampati classification: III Thyromental Distance: 4-6 cm Mental/Cognitive Status: Alert/Oriented X3, Normal for patient Plan Anesthesia Type: MAC Consent for Procedure(s) Verified and Reviewed: Yes Code Status: Attempt Resuscitation ASA classification: 3-Severe systemic disease Is this case an emergency?: No
[2020-04-23] MEDS ORDERED: EPINEPHrine 1 MG/ML AMP ONE (07:06)
[2020-04-23] MEDS ORDERED: TRIAMCIN/MOXIFLOX OPHTHALMIC 0.6 ML VIAL IO ONE ×2 (07:06→07:42)
[2020-04-23] MEDS ORDERED: BRIMONIDINE 0.2% OPHTH DROPS 5 ML ONE (07:06)
[2020-04-23] MEDS ORDERED: BSS/LIDOCAINE/EPINEPHRINE 1 ML SYRINGE ONE (07:07)
[2020-04-23] MEDS ORDERED: TIMOLOL 0.5% OPHTH DROPS ONE (07:07)
[2020-04-23] MEDS ORDERED: VANCOMYCIN OPHTHALMI 8MG/0.8ML 8 MG/0.8 ML SYRINGE IO ONE ×2 (07:07→07:42)
[2020-04-23] MEDS ORDERED: MIDAZOLAM 2 MG/2 ML VIAL ONE (07:27)
[2020-04-23] MEDS ORDERED: fentaNYL 100 MCG/2 ML VIAL ONE (07:27)
[2020-04-23] MEDS ORDERED: TIMOLOL 0.5% OPHTH DROPS OPTH ONE (07:41)
[2020-04-23] MEDS ORDERED: BRIMONIDINE 0.2% OPHTH DROPS 5 ML OPTH ONE (07:41)
[2020-04-23] MEDS ORDERED: CHONDR SULF/HYALURONATE SYRINGE IO ONE (07:41)
[2020-04-23] MEDS ORDERED: EPINEPHrine 1 MG/ML AMP IR ONE (07:41)
[2020-04-23] MEDS ORDERED: PROPARACAINE 0.5% OPHTH DROPS 15 ML EACHEYE ONE (07:42)
[2020-04-23] MEDS ORDERED: BSS/LIDOCAINE/EPINEPHRINE 1 ML SYRINGE IO ONE (07:42)
[2020-04-23 08:15] VITALS: BP 151/70
--- NOTE | 2020-04-23 08:51 | ANESTHESIA POST OP EVALUATION ---
Anesthesia Post Eval - Post Anesthesia Eval Vitals: Last Vital Signs Temp 36.6 C 04/23/20 08:14 Pulse 51 L 04/23/20 08:14 Resp 16 04/23/20 08:14 BP 151/70 H 04/23/20 08:14 Pulse Ox 96 04/23/20 08:14 CV Function Including HR & BP: positive: Stable Pain Control: positive: Satisfactory Nausea & Vomiting: positive: Negative Mental Status: positive: Baseline Respiratory Status: Airway Patent Hydration Status: Satisfactory Anesthesia Complications: positive: None
--- NOTE | 2020-04-23 09:07 | OPERATIVE REPORT ---
DATE OF SERVICE: 04/23/2020 Physician: Justin Taylor MD PREOPERATIVE DIAGNOSIS: Visually significant cataract, left eye. This was his first cataract surger y. POSTOPERATIVE DIAGNOSIS: Visually significant cataract, left eye. This was his first cataract surge ry. PROCEDURE: Phacoemulsification with posterior chamber intraocular lens implant, left eye. SURGEON: Justin Taylor MD. ANESTHESIA: Monitored anesthesia care. COMPLICATIONS: None. OPERATIVE INDICATIONS: This is a 79-year-old man with progressive vision loss in the left eye due to 2+ nuclear sclerotic, 2+ cortical, and trace posterior subcapsular cataract. Best corrected visual acuity was 20/30 with glare to 20/150 in the left eye. Indications for surgery are overall decrease in vision, difficulty seeing street signs, difficulty driving in low light or at night, difficulty dr iving at night because of headlights from other vehicles, and difficulty with glare or bright lights in any situation. He was consented at length concerning risks and benefits of cataract surgery, afte r which he expressed a desire to proceed with surgery. OPERATIVE PROCEDURE: The patient was taken into OR #3 and placed under monitored anesthesia care. A surgical timeout was conducted, confirming correct patient, correct procedure, and correct surgical site. He was given topical anesthesia and prepped and draped in the usual sterile fashion. The eye was entered at the 6 and 3 o'clock positions. Intracameral Shugarcaine was injected into the anterio r chamber followed by Viscoat. A continuous-tear curvilinear capsulorrhexis was performed. The nucl eus was hydrodissected and phacoemulsified. The cortex was evacuated using automated infusion and as piration. Provisc was injected in the capsular bag and an 18.5 diopter intraocular lens inserted int o the bag. Infusion and aspiration were used to evacuate the viscoelastic materials. The eye was in flated to physiologic pressure using balanced salt solution and found to be watertight. Approximatel y 0.25 mL of a mixture of triamcinolone and moxifloxacin was injected transsclerally into the vitreou s in the inferotemporal quadrant. An additional 0.55 mL of a mixture of triamcinolone, moxifloxacin, and vancomycin was injected subconjunctivally in the superior quadrant for infection and inflammatio n prophylaxis. Wound integrity was checked with Weck-Nilsa sponges. The patient was taken from the op erating room in good condition and given postoperative instructions. TD: 04/23/2020 08:04
== END 2020-04-23 06:28 | disposition home or self-care (01) ==
LOC: SDS 06:27
PROVIDERS: ATTEND Ophthalmology
DX: H25.812 Combined forms of age-related cataract, left eye (principal); G20 Parkinson's disease; F41.9 Anxiety disorder, unspecified; Z87.891 Personal history of nicotine dependence; E66.3 Overweight; Z68.26 Body mass index [BMI] 26.0-26.9, adult; E03.9 Hypothyroidism, unspecified; Z95.2 Presence of prosthetic heart valve
CPT/HCPCS: 66984; A9270; J3490; J7120; V2632

== ENCOUNTER 2020-06-01 16:43 | Outpatient (CLI) | payer MEDICARE | END 2020-06-01 16:44 | disposition home or self-care (01) | LOC: COV 16:43 | PROVIDERS: ATTEND Ophthalmology | DX: Z01.812 Encounter for preprocedural laboratory examination (principal); H25.811 Combined forms of age-related cataract, right eye; Z20.822 Contact with and (suspected) exposure to COVID-19 ==

== ENCOUNTER 2020-06-04 09:23 | Day surgery (SDC) | payer MEDICARE ==
[~2020-06-04 09:23] MED LIST changes: -PROPARACAINE 0.5% OPHTH DROPS 15 ML ONE
[2020-06-04] MEDS: PROPARACAINE 0.5% OPHTH DROPS 15 ML ONE ×2 (09:51→09:53)
[2020-06-04] MEDS ORDERED: CYCLOPENTOLATE 2% OPHTH DROPS 2 ML RIGHTEYE ONE (09:52)
[2020-06-04] MEDS ORDERED: LACTATED RINGERS 500 ML IV ONE ×2 (09:54→10:54)
[2020-06-04] MEDS ORDERED: BRIMONIDINE 0.2% OPHTH DROPS 5 ML ONE (10:25)
[2020-06-04] MEDS ORDERED: VANCOMYCIN OPHTHALMI 8MG/0.8ML 8 MG/0.8 ML SYRINGE IO ONE ×2 (10:25→10:44)
[2020-06-04] MEDS ORDERED: TRIAMCIN/MOXIFLOX OPHTHALMIC 0.6 ML VIAL IO ONE ×2 (10:25→10:44)
[2020-06-04] MEDS ORDERED: TIMOLOL 0.5% OPHTH DROPS ONE (10:25)
[2020-06-04] MEDS ORDERED: MIDAZOLAM 2 MG/2 ML VIAL ONE (10:27)
--- NOTE | 2020-06-04 10:28 | ANESTHESIA ---
Pre-Anesthesia VS, & Labs - Diagnosis right eye senile combined cataract - Procedure right eye cataract extraction with IOL implant Vital Signs: Temp Pulse Resp BP Pulse Ox 36.3 C L 59 L 16 138/79 H 99 06/04/20 09:40 06/04/20 09:40 06/04/20 09:40 06/04/20 09:40 06/04/20 09:40 Height: 5 ft 9 in Weight (kg): 82.1 kg Body Mass Index: 26.7 BMI Classification: Overweight - NPO >8 hours Home Medications and Allergies Home Medications: Ambulatory Orders Hydrochlorothiazide 12.5 mg PO QPM 06/03/20 Amlodipine Besylate 2.5 mg PO BID 12/17/17 Carbidopa/Levodopa [Carbidopa-Levo ER 50-200 Tab] 1 tab PO 1000,219912/17/17 Carbidopa/Levodopa [Carbidopa-Levodopa 25-100 Tab] 2 tab PO 0800,1200,1600,2000 12/17/17 Cholecalciferol (Vitamin D3) [Vitamin D3] 5,000 units PO 1000 12/17/17 Cyanocobalamin (Vitamin B-12) [Vitamin B-12 (500 mcg sublingual)] 1,000 mcg PO 1000 12/17/17 Levothyroxine Sodium 50 mcg PO 1000 12/17/17 Losartan Potassium 50 mg PO 219912/17/17 Multivitamin [Theragran] 1 tab PO 1000 12/17/17 Ropinirole HCl [Ropinirole ER] 8 mg PO 0 12/17/17 Hydrochlorothiazide 12.5 mg PO QPM 06/03/20 Allergies/Adverse Reactions: Allergies Allergy/AdvReac Type Severity Reaction Status Date / Time No Known Drug Allergies Allergy Verified 06/04/20 09:48 Anes History & Medical History - Anesthetic History Anesthesia Complications: reports: No previous complications - Medical History Cardiovascular: reports: Hypertension, High cholesterol Pulmonary: reports: None Gastrointestinal: reports: GI bleed Urinary: reports: None Neuro: reports: Parkinson's (DBS), Tremors, Other (restless leg syndrome) Musculoskeletal: reports: Osteoarthritis Endocrine/Autoimmune: reports: HyPOthyroidism Blood Disorders: reports: None Skin: reports: None Smoking Status: Never smoker Psychosocial: reports: No issues indicated History of Cancer?: No - Surgical History General: reports: Colonoscopy, EGD Eyes Ears Nose Throat (EENT): reports: Cataracts Cardiothoracic: reports: Valve replacement Neurologic: reports: Other Exam General: Alert, Oriented x3, Cooperative, No acute distress Dental: WNL Mouth Openin Fingerbreadth Neck Mobility: Reduced Mallampati classification: III Thyromental Distance: 4-6 cm Respiratory: Lungs clear, Normal breath sounds, No respiratory distress, No accessory muscle use Mental/Cognitive Status: Alert/Oriented X3, Normal for patient Plan Anesthesia Type: MAC Consent for Procedure(s) Verified and Reviewed: Yes Code Status: Attempt Resuscitation ASA classification: 2-Mild systemic disease Is this case an emergency?: No
[2020-06-04] MEDS ORDERED: BRIMONIDINE 0.2% OPHTH DROPS 5 ML OPTH ONE (10:43)
[2020-06-04] MEDS ORDERED: CHONDR SULF/HYALURONATE SYRINGE IO ONE (10:43)
[2020-06-04] MEDS ORDERED: EPINEPHrine 1 MG/ML AMP IR ONE (10:43)
[2020-06-04] MEDS ORDERED: PROPARACAINE 0.5% OPHTH DROPS 15 ML EACHEYE ONE (10:44)
[2020-06-04] MEDS ORDERED: BSS/LIDOCAINE/EPINEPHRINE 1 ML SYRINGE IO ONE (10:44)
[2020-06-04] MEDS ORDERED: TIMOLOL 0.5% OPHTH DROPS OPTH ONE (10:44)
[2020-06-04 11:11] VITALS: BP 115/62
[2020-06-04] MEDS ORDERED: IBUPROFEN 600 MG TABLET PO ONE (11:11)
[2020-06-04] MEDS ORDERED: ACETAMINOPHEN 325 MG TABLET PO ONE (11:11)
--- NOTE | 2020-06-04 12:12 | OPERATIVE REPORT ---
DATE OF SERVICE: 06/04/2020 Physician: Justin Taylor MD PREOPERATIVE DIAGNOSIS: Visually significant cataract, right eye. Cataract surgery was performed on the left eye on 04/23/2020. POSTOPERATIVE DIAGNOSIS: Visually significant cataract, right eye. Cataract surgery was performed o n the left eye on 04/23/2020. PROCEDURE PERFORMED: Phacoemulsification with posterior chamber intraocular lens implant, right eye. SURGEON: Justin Taylor MD. ANESTHESIA: Monitored anesthesia care. COMPLICATIONS: None. OPERATIVE INDICATIONS: This is a 79-year-old man with progressive vision loss in the right eye due t o 2+ nuclear sclerotic, 2+ to 3+ cortical, and 1+ posterior subcapsular cataract. Best corrected vis ual acuity was 20/30 with glare to 20/300 in the right eye. Indications for surgery are overall decr ease in vision, difficulty driving in low light or at night, difficulty driving at night because of h eadlights from other vehicles, and difficulty with glare or bright lights in any situation. He was c onsented at length concerning the risks and benefits of cataract surgery, after which he expressed a desire to proceed with surgery. OPERATIVE PROCEDURE: The patient was taken into OR #3 and placed under monitored anesthesia care. A surgical timeout was conducted, confirming correct patient, correct procedure, and correct surgical site. He was given topical anesthesia and prepped and draped in usual sterile fashion. The eye was entered at the 12 and 9 o'clock positions. Intracameral Shugarcaine was injected into the anterior c hamber followed by Viscoat. A continuous-tear curvilinear capsulorrhexis was performed. The nucleus was hydrodissected and phacoemulsified. The cortex was evacuated using automated infusion and aspir ation. Provisc was injected in the capsular bag and a 17.5 diopter intraocular lens inserted into th e bag. Infusion and aspiration were used to evacuate the viscoelastic materials. The eye was inflat ed to physiologic pressure using balanced salt solution and found to be watertight. Approximately 0. 25 mL of a mixture of triamcinolone and moxifloxacin was injected transsclerally into the vitreous in the inferotemporal quadrant. An additional 0.55 mL of a mixture of triamcinolone, moxifloxacin, and vancomycin was injected subconjunctivally in the superior quadrant for infection and inflammation pr ophylaxis. Wound integrity was checked with Weck-Nilsa sponges. The patient was taken from the operat ing room in good condition and given postoperative instructions. TD: 06/04/2020 11:46
--- NOTE | 2020-06-04 17:13 | ANESTHESIA POST OP EVALUATION ---
Anesthesia Post Eval - Post Anesthesia Eval Vitals: Last Vital Signs Temp 36.2 C L 06/04/20 10:45 Pulse 68 06/04/20 11:10 Resp 18 06/04/20 11:10 BP 115/62 06/04/20 11:10 Pulse Ox 100 06/04/20 11:10 CV Function Including HR & BP: positive: Stable Pain Control: positive: Satisfactory Nausea & Vomiting: positive: Negative Mental Status: positive: Baseline Respiratory Status: Airway Patent Hydration Status: Satisfactory Anesthesia Complications: positive: None
== END 2020-06-04 09:24 | disposition home or self-care (01) ==
LOC: SDS 09:23
PROVIDERS: ATTEND Ophthalmology
DX: H25.811 Combined forms of age-related cataract, right eye (principal); G20 Parkinson's disease; F41.9 Anxiety disorder, unspecified; I10 Essential (primary) hypertension; E03.9 Hypothyroidism, unspecified; Z87.891 Personal history of nicotine dependence; E66.3 Overweight; Z68.26 Body mass index [BMI] 26.0-26.9, adult; Z98.42 Cataract extraction status, left eye
CPT/HCPCS: 66984; A9270; J3490; J7120; V2632

== ENCOUNTER 2021-07-05 08:00 | Outpatient (CLI) | payer MEDICARE, OTHER ==
[2021-07-05 18:22] LABS: ALBUMIN 4.2 g/dL (3.2-5.5); ALBUMIN/GLOBULIN RATIO 1.6 (1.0-2.2); ALKALINE PHOSPHATASE 44 IU/L (42-121); ALT ALANINE AMINOTRANSFERASE < 10 IU/L (10-60); AST ASPARTATE AMINOTRANSFERASE 24 IU/L (10-42); BASOPHILS % (AUTO) 0.4 %; BILIRUBIN,TOTAL 1.1 mg/dL (0.2-1.0); BUN - BLOOD UREA NITROGEN 23 mg/dL (6-20); CALCIUM 9.2 mg/dL (8.5-10.3); CARBON DIOXIDE - CO2 24 mmol/L (21-32); CHLORIDE 103 mmol/L (101-111); CREATININE 1.2 mg/dL (0.6-1.2); EOSINOPHILS # (AUTO) 0.2 10^3/uL (0.0-0.7); EOSINOPHILS % (AUTO) 3.5 %; GFR - MDRD 58 (>89); GLUCOSE 90 mg/dL (70-100); HCT - HEMATOCRIT 40.5 % (42.0-52.0); HGB - HEMOGLOBIN 13.7 g/dL (14.0-18.0); LYMPHOCYTES % (AUTO) 17.7 %; MEAN CORPUSCULAR HEMOGLOBIN 31.6 pg (27.0-31.0); MEAN CORPUSCULAR HGB CONC 33.8 g/dL (32.0-36.0); MEAN CORPUSCULAR VOLUME 93.5 fL (80.0-94.0); MEAN PLATELET VOLUME 10.2 fL (7.4-11.4); MONOCYTES # (AUTO) 0.5 10^3/uL (0.0-1.0); MONOCYTES % (AUTO) 8.8 %; NEUTROPHILS # (AUTO) 3.9 10^3/uL (1.5-6.6); NEUTROPHILS % (AUTO) 69.4 %; PLT - PLATELET COUNT 173 10^3/uL (130-450); POTASSIUM 4.1 mmol/L (3.5-5.0); RED BLOOD COUNT 4.33 10^6/uL (4.70-6.10); RED CELL DISTRIBUTION WIDTH 12.4 % (12.0-15.0); SODIUM 136 mmol/L (135-145); TOTAL PROTEIN 6.9 g/dL (6.7-8.2); WHITE BLOOD COUNT 5.7 x10^3/uL (4.8-10.8)
== END 2021-07-05 08:01 | disposition home or self-care (01) ==
LOC: LAB.N 08:00
PROVIDERS: ATTEND Nurse Practitioner
DX: B35.1 Tinea unguium (principal)
CPT/HCPCS: 36415; 80053; 85025

== ENCOUNTER 2022-02-15 15:08 | Outpatient (CLI) | payer MEDICARE, OTHER ==
[2022-02-15 15:20] LABS: BASOPHILS % (AUTO) 0.4 %; EOSINOPHILS % (AUTO) 18.3 %; HCT - HEMATOCRIT 41.7 % (42.0-52.0); HGB - HEMOGLOBIN 13.9 g/dL (14.0-18.0); LYMPHOCYTES % (AUTO) 13.8 %; MEAN CORPUSCULAR HEMOGLOBIN 31.3 pg (27.0-31.0); MEAN CORPUSCULAR HGB CONC 33.3 g/dL (32.0-36.0); MEAN CORPUSCULAR VOLUME 93.9 fL (80.0-94.0); MEAN PLATELET VOLUME 9.5 fL (7.4-11.4); MONOCYTES % (AUTO) 9.2 %; NEUTROPHILS % (AUTO) 58.2 %; PLT - PLATELET COUNT 161 10^3/uL (130-450); RED BLOOD COUNT 4.44 10^6/uL (4.70-6.10); RED CELL DISTRIBUTION WIDTH 12.1 % (12.0-15.0); WHITE BLOOD COUNT 6.8 x10^3/uL (4.8-10.8)
[2022-02-15 15:28] LABS: ABNORMAL LYMPHS % (MANUAL) 0 %; BAND NEUTROPHILS % (MANUAL) 0 %
[2022-02-15 15:58] LABS: THYROID STIMULATING HORMONE 4.36 uIU/mL (0.34-5.60)
[2022-02-15 16:09] LABS: ALBUMIN/GLOBULIN RATIO 1.2 (1.0-2.2); ALKALINE PHOSPHATASE 60 IU/L (42-121); ALT ALANINE AMINOTRANSFERASE < 10 IU/L (10-60); AST ASPARTATE AMINOTRANSFERASE 21 IU/L (10-42); BASOPHILS # (MANUAL) 0.1 10^3/uL (0-0.1); BASOPHILS % (MANUAL) 1 %; BILIRUBIN,TOTAL 0.8 mg/dL (0.2-1.0); BUN - BLOOD UREA NITROGEN 21 mg/dL (6-20); CALCIUM 9.3 mg/dL (8.5-10.3); CARBON DIOXIDE - CO2 28 mmol/L (21-32); CHLORIDE 99 mmol/L (101-111); CHOL/HDL RATIO 4.1 (<5.0); CHOLESTEROL 181 mg/dL; CREATININE 1.3 mg/dL (0.6-1.2); DIFFERENTIAL COMMENT MANUAL DIFFERENTIAL; EOSINOPHILS # (MANUAL) 1.7 10^3/uL (0-0.7); GFR - MDRD 53 (>89); GLUCOSE 101 mg/dL (70-100); HDL CHOLESTEROL 44 mg/dL; LDL CHOLESTEROL,CALCULATED 126 mg/dL; LDL/HDL RATIO 2.9 (<3.6); LYMPHOCYTES # (MANUAL) 0.7 10^3/uL (1.5-3.5); LYMPHOCYTES % (MANUAL) 11 %; MONOCYTES # (MANUAL) 0.6 10^3/uL (0.0-1.0); NEUTROPHILS # (MANUAL) 3.7 10^3/uL (1.5-6.6); PLATELET ESTIMATE, MANUAL NORMAL (130-450,000) (NORMAL); PLATELET MORPHOLOGY NORMAL APPEARANCE (NORMAL); RBC MORPHOLOGY (MULTIPLE) NORMAL APPEARANCE (NORMAL); SODIUM 138 mmol/L (135-145); TOTAL PROTEIN 7.4 g/dL (6.7-8.2); TRIGLYCERIDES 56 mg/dL; VLDL CHOLESTEROL 11 mg/dL; WBC MORPHOLOGY (MULTIPLE) NORMAL APPEARANCE (NORMAL)
[2022-02-15 21:22] LABS: ESTIMATED AVERAGE GLUCOSE 114 mg/dL (70-100); HEMOGLOBIN A1c% 5.6 % (4.27-6.07)
== END 2022-02-15 15:09 | disposition home or self-care (01) ==
LOC: LAB 15:08
PROVIDERS: ATTEND Family Medicine
DX: I10 Essential (primary) hypertension (principal); E16.1 Other hypoglycemia; E78.5 Hyperlipidemia, unspecified; G20 Parkinson's disease; Z95.2 Presence of prosthetic heart valve
CPT/HCPCS: 36415; 80053; 80061; 83036; 83721; 84443; 85025

== ENCOUNTER 2022-04-28 04:30 | Outpatient (CLI) | payer MEDICARE, OTHER | END 2022-04-28 04:31 | disposition EMS.NT | LOC: EMS 04:30 | DX: R53.83 Other fatigue (principal) ==

== ENCOUNTER 2022-08-04 13:22 | Emergency (ER) | payer MEDICARE, OTHER ==
[2022-08-04 13:33] VITALS: BP 159/82
--- NOTE | 2022-08-04 13:45 | ED Physician Documentation ---
PD HPI MALE - Stated complaint Stated Complaint: MALE - Chief complaint Chief Complaint: General - History obtained from History obtained from: Patient - History of Present Illness Timing - onset: How many days ago (3) Timing - duration: Days (3) Timing - details: Gradual onset, Waxing and waning Associated symptoms: Other (he states he noted a rounded bulge right inguinal area 3 days ago and it has been out variably since. Had been doing gardening/lifting earlier that day. Not hurting. He states the lump is varible s ize. NO associated nausea/vomiting, skin sores. local injury, dysuria.). No: Dysuria, Urinary frequency, Genital sore / lesion Similar symptoms before: Has not had sx before Recently seen: Not recently seen Review of Systems Constitutional: denies: Fever, Chills GI: reports: Constipation (somewhat firm and small stools.). 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 HEENT: Chronic hearing loss Psych: Depression, Anxiety, Other Musculoskeletal: Osteoarthritis, Fatigue, Chronic back pain Derm: None - Past Surgical History Past Surgical History: Yes General: Colonoscopy, EGD Cardiovascular: Valve replacement - Present Medications Home Medications: Ambulatory Orders Medication Instructions Recorded Confirmed Amlodipine Besylate 2.5 mg PO BID 12/17/17 06/04/20 Carbidopa/Levodopa [Carbidopa-Levo 1 tab PO 999,219912/17/17 06/04/20 ER 50-200 Tab] Carbidopa/Levodopa 2 tab PO 0800,1200,1600,199912/17/17 06/04/20 [Carbidopa-Levodopa 25-100 Tab] Cholecalciferol (Vitamin D3) 5,[place] [address]/17/17 06/04/20 [Vitamin D3] Cyanocobalamin (Vitamin B-12) 1,000 mcg PO 1000 12/17/17 06/04/20 [Vitamin B-12 (500 mcg sublingual)] Levothyrox[place] [address]/17/17 06/04/20 Losartan Potassium 50 mg PO 2200 12/17/17 06/04/20 Multivitamin [Theragran] 1 tab PO 1000 12/17/17 06/04/20 Pantoprazole [Protonix] 40 mg PO BID #60 tablet 12/17/17 06/04/20 Ropinirole HCl [Ropinirole ER] 8 mg PO 2200 12/17/17 06/04/20 hydroCHLOROthiazide 12.5 mg PO QPM 06/03/20 06/04/20 [Hydrochlorothiazide] LORazepam [Ativan] 0.5 mg PO BID PRN #12 tablet 10/23/21 - Allergies Allergies/Adverse Reactions: Allergies Allergy/AdvReac Type Severity Reaction Status Date / Time No Known Drug Allergies Allergy Verified 08/04/22 13:32 - Social History Does the pt smoke?: No Smoking Status: Never smoker Does the pt drink ETOH?: No Does the pt have substance abuse?: No - Immunizations Immunizations are current?: Yes - POLST Patient has POLST: No POLST Status: Full Code PD ED PE NORMAL - Vitals Vital signs reviewed: Yes - General General: Alert and oriented X 3, No acute distress, Well developed/nourished - Abdomen Abdomen: Normal bowel sounds, Soft, Non tender, Non distended, No organomegaly - Male Male : Mother Baby Rn present (family member), Other (there is soft bulge under skin in right inguinal area. Soft. I can easily reduce it with just light pressure. Minimall tender to do so. It then comes back out readily with him tightening abd very gently. ) Results - Vitals Vitals: Vital Signs - 24 hr 08/04/22 08/04/22 13:25 14:21 Temperature 37.1 C Heart Rate 56 L Respiratory 16 Rate Blood Pressure 159/82 H O2 Saturation 99 Oxygen O2 Source Room air PD Medical Decision Making - ED course Complexity details: considered differential (apparently new hernia or expanded. He noted it 3 days ago after gardening. It does have a 1 1/2 cm defect and reduces easily so I think is low risk of incarceration. He can follow up with surgery for consult. ), d/w patient, d/w family Departure - Departure Disposition: 01 Home, Self Care Clinical Impression: Inguinal hernia Qualifiers: Obstruction and gangrene presence: without obstruction or gangrene Laterality: unilateral Recurrence: non-recurrent Qualified Code(s): K40.90 - Unilateral inguinal hernia, without obstruction or gangrene, not specified as recurrent Condition: Stable Record reviewed to determine appropriate education?: Yes Instructions: ED Hernia Inguinal Follow-Up: Jeremy Tejeda MD [Primary Care Provider] - Derek Salvador MD [Provider Admit Priv/Credential] - Pino Osborn MD [Provider Admit Priv/Credential] - Comments: This is a inguinal hernia. It feels easily reducible. As such has less likelihood of getting trapped per se. Activity as tolerated. Its more likely to be pooch out with lifting and bending and activity and also if you are a little constipated. However there is no harm done if its out. Concern would be if its consistently crampy or tender or annoying then you may want to discuss with the surgeon about surgical repair. Otherwise the acute problems that can develop is if it gets trapped (incarcerated or strangulated) in which case you will be aware of it as it will be bulged out but also very cramping and painful tender and hard. If that happens then he went to lay down and put a cool towel on the area and gently press on it and see if it goes back in. Other potential complication is if it does not get trapped necessarily but the intestine cramps like bending a garden hose and causes a blockage of the intestinal flow. This translates into general abdominal bloating and pain and cramping with vomiting. The above 2 scenarios are ones that you would want to return to the ER for. Otherwise if is just slightly tender or annoying than just follow-up with your primary care and surgical office. If its bulged out but not bothering you at all then there is no reason to has to be pushed back in or kept in place. That said you can put a little pressure in that area such as a small ball or rolled sock or such in the underwear to apply pressure in the area so its less likely to be out if that is your preference. I would also suggest a daily stool softener such as MiraLAX or docusate. I provided the name of a couple of the surgical offices here in town to call and set up an appointment to discuss further care if desired. Discharge Date/Time: 08/04/22 14:24
== END 2022-08-04 14:24 | disposition home or self-care (01) ==
LOC: ED 13:22
DX: K40.90 Unilateral inguinal hernia, without obstruction or gangrene, not specified as recurrent (principal); K59.00 Constipation, unspecified; G20 Parkinson's disease
CPT/HCPCS: 99281; 99283

== ENCOUNTER 2022-10-11 09:28 | Emergency (ER) | payer MEDICARE ==
--- NOTE | 2022-10-11 11:36 | ED Physician Documentation ---
PD HPI LOWER EXT INJURY - Stated complaint Stated Complaint: LRQ BACK PX - Chief complaint Chief Complaint: Back Pain - History obtained from History obtained from: Patient - Additional information Additional information: Patient presents from home by private vehicle for evaluation of right hip pain. Patient states that 1 week ago he slipped and landed on his buttocks. He has had persistent pain in his right hip that is worse with movement. He is able to ambulate. He has taken Tylenol and Motrin at home with improvement in pain. He is here today for evaluation to make sure that there is nothing broken. Review of Systems Constitutional: denies: Fever, Chills Cardiac: denies: Chest pain / pressure, Palpitations Respiratory: denies: Dyspnea, Cough, Wheezing GI: denies: Abdominal Pain, Nausea, Vomiting : denies: Dysuria, Frequency Musculoskeletal: reports: Joint pain. 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 HEENT: Chronic hearing loss Psych: Depression, Anxiety, Other Musculoskeletal: Osteoarthritis, Fatigue, Chronic back pain Derm: None - Past Surgical History Past Surgical History: Yes General: Colonoscopy, EGD Ortho: Knee replacement Cardiovascular: Valve replacement Neuro: Other - Present Medications Home Medications: Ambulatory Orders Medication Instructions Recorded Confirmed Amlodipine Besylate 2.5 mg PO BID 12/17/17 10/11/22 Carbidopa/Levodopa [Carbidopa-Levo 1 tab PO 999,219912/17/17 10/11/22 ER 50-200 Tab] Carbidopa/Levodopa 2 tab PO 0800,1200,1600,199912/17/17 10/11/22 [Carbidopa-Levodopa 25-100 Tab] Cholecalciferol (Vitamin D3) 5,[place] [address]/17/17 10/11/22 [Vitamin D3] Cyanocobalamin (Vitamin B-12) 1,[place] [address]/17/17 10/11/22 [Vitamin B-12 (500 mcg sublingual)] Levothyroxine [place] [address]/17/17 10/11/22 Losartan Potassium 50 mg PO 219912/17/17 10/11/22 Multivitamin [Theragran] 1 tab PO 1000 12/17/17 10/11/22 Ropinirole HCl [Ropinirole ER] 8 mg PO 2200 12/17/17 10/11/22 LORazepam [Ativan] 0.5 mg PO BID PRN #12 tablet 10/23/21 10/11/22 Mirabegron [Myrbetriq] 25 mg ORAL DAILY 10/11/22 10/11/22 - Allergies Allergies/Adverse Reactions: Allergies Allergy/AdvReac Type Severity Reaction Status Date / Time No Known Drug Allergies Allergy Verified 10/11/22 09:50 - Social History Does the pt smoke?: No Smoking Status: Former smoker Does the pt drink ETOH?: No Does the pt have substance abuse?: No - Immunizations Immunizations are current?: Yes - POLST Patient has POLST: No POLST Status: Full Code PD ED PE NORMAL - Vitals Vital signs reviewed: Yes - General General: Alert and oriented X 3, No acute distress, Well developed/nourished - HEENT HEENT: Atraumatic - Cardiac Cardiac: RRR, No murmur - Respiratory Respiratory: No respiratory distress, Clear bilaterally - Abdomen Abdomen: Soft, Non tender, Non distended - Derm Derm: Normal color, Warm and dry, No rash - Extremities Extremities: No deformity, No edema, Other (R posterior hip pain over buttock) Results - Vitals Vitals: Vital Signs - 24 hr 10/11/22 10/11/22 10/11/22 09:46 10:50 11:00 Temperature 36.6 C Heart Rate 68 50 L 49 L Respiratory 18 16 18 Rate Blood Pressure 174/87 H 159/81 H 131/86 H O2 Saturation 99 97 98 10/11/22 12:00 Temperature Heart Rate 49 L Respiratory 18 Rate Blood Pressure 150/74 H O2 Saturation 99 Oxygen O2 Source Room air PD Medical Decision Making - ED course Complexity details: reviewed results, re-evaluated patient, considered differential, d/w patient ED course: Right hip pain after fall 1 week ago. No obvious deformity, no crepitus, patient is ambulatory without difficulty. X-rays reviewed, no acute pathology identified. Patient was counseled on the x-ray results, counseled use of Tylenol, heat, ice as needed for pain. Patient will follow-up with his primary care physician. Departure - Departure Disposition: 01 Home, Self Care Clinical Impression: Back pain, Contusion, hip Condition: Stable Instructions: Bruises Contusions Discharge Date/Time: 10/11/22 12:20
--- NOTE | 2022-10-11 12:09 | XRAY Report ---
PROCEDURE: Hip w/Pelvis 2-3V RT INDICATIONS: GLF 1 WK AGO, PERSISTENT PAIN TECHNIQUE: AP pelvis with lateral view(s) of the right hip(s). COMPARISON: None. FINDINGS: Bones: Mild to moderate bilateral degenerative changes. No definite displaced fracture or dislocatio n. Soft tissues: No suspicious calcifications. IMPRESSION: No acute radiographic abnormality. Recommend CT or MR if there is sufficient clinical concern. Reviewed by: Gume Savage MD on 10/11/2022 12:08 PM PDT Approved by: Gume Savage MD on 10/11/2022 12:08 PM PDT Station ID: [id number]
[2022-10-11 12:41] VITALS: BP 150/74
== END 2022-10-11 12:20 | disposition home or self-care (01) ==
LOC: ED 09:28
DX: S70.01XA Contusion of right hip, initial encounter (principal); M54.50 Low back pain, unspecified; W01.0XXA Fall on same level from slipping, tripping and stumbling without subsequent striking against object, initial encounter; I10 Essential (primary) hypertension; G20 Parkinson's disease; E03.9 Hypothyroidism, unspecified; Z79.899 Other long term (current) drug therapy; Z87.891 Personal history of nicotine dependence
CPT/HCPCS: 99283

== ENCOUNTER 2022-10-18 11:08 | Emergency (ER) | payer MEDICARE ==
[2022-10-18 11:34] VITALS: BP 148/73
[2022-10-18 11:44] LABS: BASOPHILS % (AUTO) 0.4 %; EOSINOPHILS # (AUTO) 0.1 10^3/uL (0.0-0.7); EOSINOPHILS % (AUTO) 2.4 %; HCT - HEMATOCRIT 38.9 % (42.0-52.0); HGB - HEMOGLOBIN 12.9 g/dL (14.0-18.0); LYMPHOCYTES # (AUTO) 0.7 10^3/uL (1.5-3.5); LYMPHOCYTES % (AUTO) 13.8 %; MEAN CORPUSCULAR HEMOGLOBIN 32.2 pg (27.0-31.0); MEAN CORPUSCULAR HGB CONC 33.2 g/dL (32.0-36.0); MEAN PLATELET VOLUME 9.2 fL (7.4-11.4); MONOCYTES # (AUTO) 0.5 10^3/uL (0.0-1.0); MONOCYTES % (AUTO) 9.8 %; NEUTROPHILS # (AUTO) 3.6 10^3/uL (1.5-6.6); NEUTROPHILS % (AUTO) 73.4 %; PLT - PLATELET COUNT 222 10^3/uL (130-450); RED BLOOD COUNT 4.01 10^6/uL (4.70-6.10); RED CELL DISTRIBUTION WIDTH 11.9 % (12.0-15.0); WHITE BLOOD COUNT 4.9 x10^3/uL (4.8-10.8)
[2022-10-18 12:03] LABS: ALBUMIN 4.1 g/dL (3.2-5.5)
[2022-10-18 12:14] LABS: ALBUMIN/GLOBULIN RATIO 1.4 (1.0-2.2); BILIRUBIN,TOTAL 0.7 mg/dL (0.2-1.0); CALCIUM 9.3 mg/dL (8.5-10.3); CREATININE 1.5 mg/dL (0.6-1.3); POTASSIUM 3.9 mmol/L (3.5-4.5)
--- NOTE | 2022-10-18 14:32 | ED Physician Documentation ---
History of Present Illness - Stated complaint Stated Complaint: MALE - Chief complaint Chief Complaint: Abd Pain - Additonal information Additional information: 81-year-old male presents emergency department seeking evaluation of his right inguinal hernia. Was seen by my colleague Dr. Fowler for similar in late July. At that time he had an easily reducible hernia and was advised to follow with surgery. Unfortunately they have not yet been referred or attempted to make a referral to surgery. Patient and his are scheduled to go on an extended cruise about a week from now and they are concerned that the hernia makes it not safe to travel. Patient does not have pain in this region unless he stands for too long but when he lies down that he hernia easily reduces resolving his symptoms. He has had no fevers, vomiting melena or hematochezia. 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 HEENT: Chronic hearing loss Psych: Depression, Anxiety, Other Musculoskeletal: Osteoarthritis, Fatigue, Chronic back pain Derm: None - Past Surgical History Past Surgical History: Yes General: Colonoscopy, EGD Ortho: Knee replacement Cardiovascular: Valve replacement Neuro: Other - Present Medications Home Medications: Ambulatory Orders Medication Instructions Recorded Confirmed Amlodipine Besylate 2.5 mg PO BID 12/17/17 10/11/22 Carbidopa/Levodopa [Carbidopa-Levo 1 tab PO 1000,219912/17/17 10/11/22 ER 50-200 Tab] Carbidopa/Levodopa 2 tab PO 0800,1200,1600,199912/17/17 10/11/22 [Carbidopa-Levodopa 25-100 Tab] Cholecalciferol (Vitamin D3) 5,[place] [address]12/17/17 10/11/22 [Vitamin D3] Cyanocobalamin (Vitamin B-12) 1,[place] [address]12/17/17 10/11/22 [Vitamin B-12 (500 mcg sublingual)] Levothyroxine [place] [address]/17/17 10/11/22 Losartan Potassium 50 mg PO 219912/17/17 10/11/22 Multivitamin [Theragran] [place] [address]/17/17 10/11/22 Ropinirole HCl [Ropinirole ER] 8 mg PO 2200 12/17/17 10/11/22 LORazepam [Ativan] 0.5 mg PO BID PRN #12 tablet 10/23/21 10/11/22 Mirabegron [Myrbetriq] 25 mg ORAL DAILY 10/11/22 10/11/22 - Allergies Allergies/Adverse Reactions: Allergies Allergy/AdvReac Type Severity Reaction Status Date / Time No Known Drug Allergies Allergy Verified 10/11/22 09:50 - Social History Does the pt smoke?: No Smoking Status: Former smoker Does the pt drink ETOH?: No Does the pt have substance abuse?: No - Immunizations Immunizations are current?: Yes - POLST Patient has POLST: No POLST Status: Full Code PD ED PE NORMAL - General General: Alert and oriented X 3, No acute distress - Cardiac Cardiac: RRR, No murmur - Respiratory Respiratory: No respiratory distress, Clear bilaterally - Abdomen Abdomen: Normal bowel sounds, Soft, Other (Very large easily reducible right inguinal hernia.) Results - Vitals Vitals: Vital Signs - 24 hr 10/18/22 11:26 Temperature 37.1 C Heart Rate 51 L Respiratory 18 Rate Blood Pressure 148/73 H O2 Saturation 96 Oxygen O2 Source Room air - Labs Labs: Laboratory Tests 10/18/22 10/18/22 11:40 11:40 WBC 4.9 RBC 4.01 L Hgb 12.9 L Hct 38.9 L MCV 97.0 H MCH 32.2 H MCHC 33.2 RDW 11.9 L Plt Count 222 MPV 9.2 Neut # (Auto) 3.6 Lymph # (Auto) 0.7 L [place] # (Auto) 0.5 Eos # (Auto) 0.1 Baso # (Auto) 0.0 Absolute Nucleated RBC 0.00 Nucleated RBC % 0.0 Sodium 137 Potassium 3.9 Chloride 109 Carbon Dioxide 29 Anion Gap -1.0 L BUN 25 H Creatinine 1.5 H Estimated GFR (MDRD) 45 L Glucose 95 Calcium 9.3 Total Bilirubin 0.7 AST 17 ALT 3 L Alkaline Phosphatase 58 Total Protein 7.0 Albumin 4.1 Globulin 2.9 Albumin/Globulin Ratio 1.4 Lipase 4 L PD Medical Decision Making - ED course Complexity details: reviewed results, d/w patient, d/w family ED course: 81-year-old male here seeking reassurance it is safe for him to travel on a cruise with an unrepaired right inguinal hernia. On exam he has a large easily reducible inguinal hernia. CBC and electrolytes were obtained in triage. Per my interpretation no leukocytosis. He does have some chronic kidney disease which is essentially unchanged. On exam he has an easily reducible right inguinal hernia. Given the size of this hernia I suspect that the defect is large enough to prevent strangulation or incarceration. When he lays flat it resolves on its own. As such I have advised the patient and his that I feel it is likely safe for them to take the cruise though it is important they follow closely with surgery upon discharge. I have given the name of Dr. Washington for follow-up. The usual emergent return precautions for incarcerated hernias was discussed. Departure - Departure Disposition: 01 Home, Self Care Clinical Impression: Right inguinal hernia Condition: Stable Record reviewed to determine appropriate education?: Yes Follow-Up: Hans Washington MD [Provider Admit Priv/Credential] - Comments: Derek has a large but easily reducible right inguinal hernia. I believe is l ikely safe for you guys to travel. Reasons that you should be concerned about the hernia would be the development of severe pain in this region that does not resolve when laying flat or if you are unable to get the hernia to reduce. At that point it would be considered an incarceration. However I suspect that the defect allowing for the hernia is large enough that incarceration is not likely to occur. I am giving the name of Dr. Brendan Washington a general surgeon here at [facility] who can see you in office and make recommendations for longer-term management of this hernia.
== END 2022-10-18 14:46 | disposition home or self-care (01) ==
LOC: ED 11:08
DX: K40.90 Unilateral inguinal hernia, without obstruction or gangrene, not specified as recurrent (principal); I10 Essential (primary) hypertension; Z87.891 Personal history of nicotine dependence
CPT/HCPCS: 36415; 80053; 81001; 81003; 83690; 85025; 87086; 99283

== ENCOUNTER 2022-10-21 00:36 | Outpatient (CLI) | payer MEDICARE | END 2022-10-21 23:59 | disposition EMS.NT | LOC: EMS 00:36 | DX: R10.31 Right lower quadrant pain (principal) ==

== ENCOUNTER 2022-10-29 05:36 | Outpatient (CLI) | payer MEDICARE | END 2022-10-29 23:59 | disposition critical access hospital (66) | LOC: EMS 05:36 | DX: R10.31 Right lower quadrant pain (principal); K40.90 Unilateral inguinal hernia, without obstruction or gangrene, not specified as recurrent | CPT/HCPCS: A0425; A0429 ==

== ENCOUNTER 2022-10-29 06:29 | Observation (INO) | payer MEDICARE ==
[2022-10-29] MEDS ORDERED: LORazepam 2 MG/ML VIAL IVP STA (06:34)
[2022-10-29] MEDS ORDERED: MORPHINE 2 MG/ML CARPUJECT IVP STA (06:34)
--- NOTE | 2022-10-29 06:43 | ED Physician Documentation ---
History of Present Illness - Stated complaint Stated Complaint: HERNIA - Chief complaint Chief Complaint: General - History obtained from History obtained from: Patient, EMS - History of Present Illness Timing: Prior to arrival - Additonal information Additional information: 81-year-old male with history of Parkinson's disease presents by EMS from home for right inguinal hernia pain since this morning. Patient has an inguinal hernia, he was seen here approximately 2 weeks ago for same. At that time the hernia was easily reducible and he was discharged with general surgery follow- up. Patient states that he recently has been constipated and has been taking laxatives. His last bowel movement was last night. This morning he was getting up out of bed when he felt his hernia shift and become significantly more painful, so he called 911. Denies nausea, vomiting. Review of Systems Constitutional: denies: Fever, Chills GI: reports: Abdominal Pain, Constipation, Other (HERNIA, RIGHT). 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 HEENT: Chronic hearing loss Psych: Depression, Anxiety, Other Musculoskeletal: Osteoarthritis, Fatigue, Chronic back pain Derm: None - Past Surgical History Past Surgical History: Yes General: Colonoscopy, EGD Ortho: Knee replacement Cardiovascular: Valve replacement Neuro: Other - Present Medications Home Medications: Ambulatory Orders Medication Instructions Recorded Confirmed Amlodipine Besylate 2.5 mg PO BID 12/17/17 10/29/22 Carbidopa/Levodopa [Carbidopa-Levo 1 tab PO 1000 12/17/17 10/29/22 ER 50-200 Tab] Carbidopa/Levodopa 2 tab PO Q4HR 12/17/17 10/29/22 [Carbidopa-Levodopa 25-100 Tab] Cholecalciferol (Vitamin D3) 5,000 units PO 1000 12/17/17 10/29/22 [Vitamin D3] Cyanocobalamin (Vitamin B-12) 1,000 mcg PO 1000 12/17/17 10/29/22 [Vitamin B-12 (500 mcg sublingual)] Levothy[place]ine [place] [address]/17/17 10/29/22 Losartan Potassium 50 mg PO 219912/17/17 10/29/22 Multivitamin [Theragran] [place] [address]/17/17 10/29/22 Ropinirole HCl [Ropinirole ER] 8 mg PO 219912/17/17 10/29/22 LORazepam [Ativan] 0.5 mg PO BID PRN #12 tablet 10/23/21 10/29/22 Mirabegron [Myrbetriq] 25 mg ORAL DAILY 10/11/22 10/29/22 Carbidopa/Levodopa ER 50/200 2 tab PO HS 10/29/22 10/29/22 [Sinemet Cr 50 mg/200 mg] - Allergies Allergies/Adverse Reactions: Allergies Allergy/AdvReac Type Severity Reaction Status Date / Time No Known Drug Allergies Allergy Verified 10/29/22 06:37 - Social History Does the pt smoke?: No Smoking Status: Never smoker Does the pt drink ETOH?: No Does the pt have substance abuse?: No - Immunizations Immunizations are current?: Yes - POLST Patient has POLST: No POLST Status: Full Code PD ED PE NORMAL - Vitals Vital signs reviewed: Yes - General General: Alert and oriented X 3, No acute distress, Well developed/nourished - HEENT HEENT: Atraumatic - Neck Neck: Supple, no meningeal sign - Cardiac Cardiac: RRR, No murmur, Strong equal pulses - Respiratory Respiratory: No respiratory distress, Clear bilaterally - Abdomen Abdomen: Soft, Non distended, Other (Painful R hernia. 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, No motor deficit, Normal speech - Psych Psych: Normal mood, Normal affect Results - Vitals Vitals: Vital Signs - 24 hr 10/29/22 10/29/22 06:25 07:01 Temperature 36.6 C Heart Rate 61 52 L Respiratory 16 14 Rate Blood Pressure 170/78 H 159/82 H O2 Saturation 100 96 Oxygen O2 Source Room air - Labs Labs: Laboratory Tests 10/29/22 10/29/22 06:45 06:45 WBC 6.2 RBC 3.89 L Hgb 12.7 L Hct 37.7 L MCV 96.9 H MCH 32.6 H MCHC 33.7 RDW 11.9 L Plt Count 199 MPV 9.6 Neut # (Auto) 4.4 Lymph # (Auto) 0.8 L [place] # (Auto) 0.8 Eos # (Auto) 0.2 Baso # (Auto) 0.0 Absolute Nucleated RBC 0.00 Nucleated RBC % 0.0 Sodium 136 Potassium 3.7 Chloride 107 Carbon Dioxide 28 Anion Gap 1.0 L BUN 21 H Creatinine 1.5 H Estimated GFR (MDRD) 45 L Glucose 97 Calcium 9.0 Total Bilirubin 0.7 AST 16 ALT < 3 L Alkaline Phosphatase 69 Total Protein 6.5 Albumin 3.7 Globulin 2.8 Albumin/Globulin Ratio 1.3 PD Medical Decision Making - ED course Complexity details: reviewed old records, reviewed results, re-evaluated patient, considered differential, d/w patient, d/w family ED course: Right-sided inguinal hernia, not easily reduced. This is changed from patient's visit on 10/18/2022 where his hernia was reportedly easily reduced. Will attempt to reduce with pain medications, ice, Trendelenburg, gentle pressure. If unsuccessful will obtain CT scan to assess for incarceration versus strangulation. Attempted to reduce the hernia. Patient was placed in Trendelenburg, ice applied to the hernia. He is given 4 mg of morphine and 2 mg of Ativan. Despite persistent gentle traction unable to manipulate the hernia due to patient's severe pain. Care of patient signed out to morning ER doctor. Departure - Departure Forms: PCP List
[2022-10-29 06:49] LABS: BASOPHILS % (AUTO) 0.5 %; EOSINOPHILS # (AUTO) 0.2 10^3/uL (0.0-0.7); EOSINOPHILS % (AUTO) 2.7 %; HCT - HEMATOCRIT 37.7 % (42.0-52.0); HGB - HEMOGLOBIN 12.7 g/dL (14.0-18.0); LYMPHOCYTES # (AUTO) 0.8 10^3/uL (1.5-3.5); LYMPHOCYTES % (AUTO) 13.2 %; MEAN CORPUSCULAR HEMOGLOBIN 32.6 pg (27.0-31.0); MEAN CORPUSCULAR HGB CONC 33.7 g/dL (32.0-36.0); MEAN CORPUSCULAR VOLUME 96.9 fL (80.0-94.0); MEAN PLATELET VOLUME 9.6 fL (7.4-11.4); MONOCYTES # (AUTO) 0.8 10^3/uL (0.0-1.0); MONOCYTES % (AUTO) 12.1 %; NEUTROPHILS # (AUTO) 4.4 10^3/uL (1.5-6.6); NEUTROPHILS % (AUTO) 71.2 %; PLT - PLATELET COUNT 199 10^3/uL (130-450); RED BLOOD COUNT 3.89 10^6/uL (4.70-6.10); RED CELL DISTRIBUTION WIDTH 11.9 % (12.0-15.0); WHITE BLOOD COUNT 6.2 x10^3/uL (4.8-10.8)
[2022-10-29 07:05] LABS: ALBUMIN 3.7 g/dL (3.2-5.5); ALBUMIN/GLOBULIN RATIO 1.3 (1.0-2.2); ALKALINE PHOSPHATASE 69 IU/L (42-121); ALT ALANINE AMINOTRANSFERASE < 3 IU/L (10-60); AST ASPARTATE AMINOTRANSFERASE 16 IU/L (10-42); BILIRUBIN,TOTAL 0.7 mg/dL (0.2-1.0); BUN - BLOOD UREA NITROGEN 21 mg/dL (6-20); CARBON DIOXIDE - CO2 28 mmol/L (21-32); CHLORIDE 107 mmol/L (101-111); CREATININE 1.5 mg/dL (0.6-1.3); GFR - MDRD 45 (>89); GLUCOSE 97 mg/dL (74-104); POTASSIUM 3.7 mmol/L (3.5-4.5); SODIUM 136 mmol/L (135-145); TOTAL PROTEIN 6.5 g/dL (6.4-8.9)
--- NOTE | 2022-10-29 07:30 | ED Physician Documentation ---
ED Addendum - Addendum Addendum: 0725 - I attempted reduction with no success. Pt sleeping through attempt but does grimace at times. 10/29/22 07:30 Dr. Viveros at bedside - unable to reduce hernia. Plan for OR today for surgical repair of incarcerated right inguinal hernia. Departure - Departure Disposition: ED Place in Observation Clinical Impression: Incarcerated right inguinal hernia Condition: Fair Forms: PCP List
[2022-10-29] MEDS ORDERED: SODIUM CHLORIDE FLUSH 0.9% 10 ML SYRINGE IVP PRN ×2 (07:43→11:51)
--- NOTE | 2022-10-29 07:48 | HISTORY & PHYSICAL EXAMINATION ---
HPI - Admitted From Admitted from: ED - History Obtained From History obtained from: Patient (Right groin swelling which is painful and non- reducible. 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 This morning he awakened with pain in his right groin. His tried to reduce the hernia but was unsuccessful. They came to the ED and with sedation and analgesia, the hernia could not be reduced. I was asked to assist in the evaluation and management of this patient with an incarcerated RIH. 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 : positive: None HEENT: positive: Chronic hearing loss Psych: positive: Depression, Anxiety, Other Musculoskeletal: positive: Osteoarthritis, Fatigue, Chronic back pain Derm: positive: None MRSA Hx?: No - Past Surgical History General: positive: Colonoscopy, EGD Ortho: positive: Knee replacement Cardiovascular: positive: Valve replacement Neuro: positive: Other Social & Family Hx - Living Situation Living Arrangement: At home (Patient has severe Parkinson's Disease) - Social History Does the pt smoke?: No Smoking Status: Never smoker Does the pt drink ETOH?: No Does the pt have substance abuse?: No - POLST Patient has POLST: No POLST Status: Full Code Meds/Allgy - Home Medications Home Medications: Ambulatory Orders Medication Instructions Recorded Confirmed Amlodipine Besylate 2.5 mg PO BID 12/17/17 10/29/22 Carbidopa/Levodopa [Carbidopa-Levo 1 tab PO 1000 12/17/17 10/29/22 ER 50-200 Tab] Carbidopa/Levodopa 2 tab PO Q4HR 12/17/17 10/29/22 [Carbidopa-Levodopa 25-100 Tab] Cholecalciferol (Vitamin D3) 5,000 units PO 1000 12/17/17 10/29/22 [Vitamin D3] Cyanocobalamin (Vitamin B-12) 1,000 mcg PO 1000 12/17/17 10/29/22 [Vitamin B-12 (500 mcg sublingual)] Levothyroxine Sodium 50 mcg PO 1000 12/17/17 10/29/22 Losartan Potassium 50 mg PO 219912/17/17 10/29/22 Multivitamin [Theragran] 1 tab PO 1000 12/17/17 10/29/22 Ropinirole HCl [Ropinirole ER] 8 mg PO 219912/17/17 10/29/22 LORazepam [Ativan] 0.5 mg PO BID PRN #12 tablet 10/23/21 10/29/22 Mirabegron [Myrbetriq] 25 mg ORAL DAILY 10/11/22 10/29/22 Carbidopa/Levodopa ER 50/200 2 tab PO HS 10/29/22 10/29/22 [Sinemet Cr 50 mg/200 mg] - Allergies Allergies/Adverse Reactions: Allergies Allergy/AdvReac Type Severity Reaction Status Date / Time No Known Drug Allergies Allergy Verified 10/29/22 06:37 Review of Systems - Other Findings Other Findings: Right groin pain associated with non-reducible lump. No nausea or vomiting; No fever or chills Exam - Vital Signs Vital Signs: Vital Signs x48h Temp Pulse Resp BP Pulse Ox 10/29/22 07:01 52 L 14 159/82 H 96 10/29/22 06:25 97.9 F 61 16 170/78 H 100 - Physical Exam General Appearance: positive: Mild distress Eyes Bilateral: positive: Normal inspection ENT: positive: ENT inspection nml Neck: positive: Nml inspection Respiratory: positive: Chest non-tender, Other (Left chest subcutaneous brain stimulator) Cardiovascular: positive: Regular rate & rhythm Peripheral Pulses: positive: 2+ Abdomen: positive: Non-tender, Nml bowel sounds, No distention Skin: positive: Color nml, No rash Extremities: positive: Non-tender, Full ROM Comments/Other: Right groin mass which is tender and non-reducible consistent with an incarcerated RIH. Both testicles are normal. There is no cellulitis over the incarcerated mass. There is no evidence of a left inguinal hernia Results - Lab Results Fish Bones: 10/29/22 06:45 10/29/22 06:45 Other Lab Results: Lab Results x24hrs 10/29/22 10/29/22 Range/Units 06:45 06:45 WBC 6.2 (4.8-10.8) x10^3/uL RBC 3.89 L (4.70-6.10) 10^6/uL Hgb 12.7 L (14.0-18.0) g/dL Hct 37.7 L (42.0-52.0) % MCV 96.9 H (80.0-94.0) fL MCH 32.6 H (27.0-31.0) pg MCHC 33.7 (32.0-36.0) g/dL RDW 11.9 L (12.0-15.0) % Plt Count 199 (130-450) 10^3/uL MPV 9.6 (7.4-11.4) fL Neut # (Auto) 4.4 (1.5-6.6) 10^3/uL Lymph # (Auto) 0.8 L (1.5-3.5) 10^3/uL [place] # (Auto) 0.8 (0.0-1.0) 10^3/uL Eos # (Auto) 0.2 (0.0-0.7) 10^3/uL Baso # (Auto) 0.0 (0.0-0.1) 10^3/uL Absolute Nucleated RBC 0.00 x10^3/uL Nucleated RBC % 0.0 /100WBC Sodium 136 (135-145) mmol/L Potassium 3.7 (3.5-4.5) mmol/L Chloride 107 (101-111) mmol/L Carbon Dioxide 28 (21-32) mmol/L Anion Gap 1.0 L (6-13) BUN 21 H (6-20) mg/dL Creatinine 1.5 H (0.6-1.3) mg/dL Estimated GFR (MDRD) 45 L (>89) Glucose 97 (74-104) mg/dL Calcium 9.0 (8.5-10.3) mg/dL Total Bilirubin 0.7 (0.2-1.0) mg/dL AST 16 (10-42) IU/L ALT < 3 L (10-60) IU/L Alkaline Phosphatase 69 (42-121) IU/L Total Protein 6.5 (6.4-8.9) g/dL Albumin 3.7 (3.2-5.5) g/dL Globulin 2.8 (2.1-4.2) g/dL Albumin/Globulin Ratio 1.3 (1.0-2.2) Impression/Plan - Problem List Problem List: Assessment: 1) Incarcerated right inguinal hernia. There is no clinical evidence of strangulated small bowel at this time 2) Parkinson's Disease - stable Recommendation: 1) Urgent surgical intervention to reduce and repair the incarceration. 2) Keep NPO 3) Ancef prophylaxis Consent: Derek is somewhat obtunded from the IV Morphine and his Parkinson's disease so I asked that his provide consent for the procedure. Derek's has been counseled for the procedure (surgical repair of incarcerated RIH, possible laparotomy for small bowel necrosis as needed), it's indications, risks, benefits and expected outcome as well as alternative therapies. We specifically discussed risks associated with anesthesia, bleeding, infection, injury to surrounding structures which may require additional surgery, and the possible need for conversion to an open procedure. We also discussed the possible need for a blood transfusion with its risks and benefits. Derek's understands, agrees, and consents to the proposed operative strategy and requests that we proceed with the procedure as outlined in our discussion. Gordon Viveros MD General Surgery Service
[2022-10-29] MEDS ORDERED: LACTATED RINGERS 1,000 ML IV SCH ×3 (08:00→13:00)
[2022-10-29] MEDS ORDERED: PROPOFOL 200 MG/20 ML VIAL IVP ONE (09:32)
[2022-10-29] MEDS ORDERED: LIDOCAINE-PF 2% 10 ML AMP SUBQ ONE (09:32)
[2022-10-29] MEDS ORDERED: ONDANSETRON 4 MG/2 ML VIAL ONE (09:33)
[2022-10-29] MEDS ORDERED: fentaNYL 100 MCG/2 ML VIAL ONE (09:36)
[2022-10-29] MEDS ORDERED: LIDOCAINE 1%-EPI 1:100000 20 ML MDV ONE (10:44)
[2022-10-29] MEDS ORDERED: BUPIVACAINE 0.25% PF 30 ML VIAL ONE (10:44)
[2022-10-29] MEDS ORDERED: LIDOCAINE 1%-EPI 1:100000 20 ML MDV SUBQ ONE (10:58)
[2022-10-29] MEDS ORDERED: BUPIVACAINE 0.25% PF 30 ML VIAL SUBQ ONE (10:58)
[2022-10-29] MEDS ORDERED: ePHEDrine 50 MG/ML VIAL IVP ONE (11:01)
[2022-10-29] MEDS ORDERED: ceFAZolin 1 GM VIAL ONE (11:21)
[2022-10-29] MEDS ORDERED: ceFAZolin 1 GM VIAL IR ONE (11:28)
[2022-10-29] MEDS ORDERED: LACTATED RINGERS 250 ML IV ONE (11:49)
[2022-10-29] MEDS ORDERED: oxyCODONE 5 MG TABLET PO PRN (11:51)
[2022-10-29] MEDS ORDERED: LORazepam 2 MG/ML VIAL IVP PRN (11:51)
[2022-10-29] MEDS ORDERED: HYDROmorphone 0.5 MG/0.5 ML SYRINGE IVP PRN ×2 (11:51→12:16)
[2022-10-29] MEDS ORDERED: ACETAMINOPHEN 1,000 MG/100 ML 1,000 MG/100 ML BAG IV ONE (11:58)
--- NOTE | 2022-10-29 12:05 | OPERATIVE REPORT ---
Operative Report - General Admit Date: 10/29/22 - Other Other Information/Narrative: PROCEDURE DATE: 10/29/22 PREOPERATIVE DIAGNOSIS: Incarcerated right inguinal Hernia POSTOPERATIVE DIAGNOSIS: Incarcerated right inguinal hernia - Indirect with lipoma of the cord PROCEDURE: Incarcerated Right Inguinal Herniorrhaphy - Prolene Light Mesh SURGEON: Joey Viveros MD, FACS [employer]CH[employer]IC SURGEON: None. ANESTHESIA: General LMA/Local ESTIMATED BLOOD LOSS: 5 ml SPECIMEN: Lipoma of the cord DRAINS: None DESCRIPTION OF PROCEDURE: After consent for the procedure was obtained, the patient was brought to the operating room where a surgical time-out was initiated indicating the patient and the procedure to be performed. In the supine position, general anesthesia using an LMA device was administered. The right groin was shaved, prepped with chloroprep, and draped in a sterile fashion. One percent Lidocaine with epinephrine in a 50:50 mix with 0.25% Marcaine was used for local anesthesia throughout the procedure. A right groin curvilinear incision was made over the internal abdominal ring and carried through the subcutaneous tissue until the aponeurosis of the external oblique was identified. A large mass containing omentum was within an indirect hernia sac that was protruding from the external abdominal ring. The hernia sac was dissected from the subcutaneous tissue below the inguinal ligament and the fluid inside appeared clear. Then, the aponeurosis was opened in the line of it's fibers down to and through the external abdominal ring. The ilioinguinal nerve was identified and protected. At this point in the procedure, the hernia contents spontaneously reduced through the internal abdominal ring. As there was no indication of blood or ischemic tissue in the hernia sac, it was not excised. The spermatic cord was then mobilized from the pubic tubercle and placed on tension with a Jagjit drain. Excess cremasteric muscle fibers were excised. On the anteromedial aspect of the cord was an indirect inguinal hernia sac which was cleanly dissected from the cord structure and replaced into the preperitoneal space. On the anterolateral aspect of the cord was a lipoma which was cleanly dissected from the cord structures and amputated using a 2-0 Vicryl ligature for the base, and sent for pathologic review. The vas deferens and cord structures were protected throughout the procedure. A direct inguinal hernia was not present. A sheet of Prolene Light mesh was then tailored to the proper size and secured inferiorly to the pubic tubercle, medially to the transversalis fascia and internal oblique muscle and fascia, and laterally to the shelving edge of Poupart's ligament and ileopubic tract using separate running 0 Prolene sutures for the medial and lateral edge of the mesh. The mesh was then split and secured around the spermatic cord in such a way as to allow egress of the cord structures without compression using interrupted 0 Prolene suture. The mesh was irrigated with warm sterile saline containing 1 gm of Ancef/500 cc. The irrigant was aspirated. The spermatic cord and ilioinguinal nerve were replaced into their normal anatomic positions. The aponeurosis of the external oblique was approximated with a running 2-0 Vicryl suture, the subcutaneous tissue with a running 4-0 Vicryl suture, and the skin with a running 4-0 Vicryl subcuticular suture with Steri-Strips to reinforce the epidermis. Dressings were placed. The patient tolerated the procedure well and was brought to recovery with stable vital signs.
--- NOTE | 2022-10-29 12:15 | ANESTHESIA ---
Pre-Anesthesia VS, & Labs - Diagnosis R IH - Procedure R IH repair Vital Signs: Temp Pulse Resp BP Pulse Ox O2 Flow Rate 36.2 C L 51 L 14 142/69 H 99 10/29/22 12:00 10/29/22 12:00 10/29/22 12:00 10/29/22 12:00 10/29/22 12:00 Height: 5 ft 10 in Weight (kg): 77.2 kg Body Mass Index: 24.4 BMI Classification: Normal - NPO >8 hours - Lab Results Current Lab Results: Laboratory Tests 10/29/22 06:45: Sodium 136, Potassium 3.7, Chloride 107, Carbon Dioxide 28, Anion Gap 1.0 L, BUN 21 H, Creatinine 1.5 H, Estimated GFR (MDRD) 45 L, Glucose 97, Calcium 9.0, Total Bilirubin 0.7, AST 16, ALT < 3 L, Alkaline Phosphatase 69, Total Protein 6.5, Albumin 3.7, Globulin 2.8, Albumin/Globulin Ratio 1.3 10/29/22 06:45: WBC 6.2, RBC 3.89 L, Hgb 12.7 L, Hct 37.7 L, MCV 96.9 H, MCH 32.6 H, MCHC 33.7, RDW 11.9 L, Plt Count 199, MPV 9.6, Neut # (Auto) 4.4, Lymph # (Auto) 0.8 L, [place] # (Auto) 0.8, Eos # (Auto) 0.2, Baso # (Auto) 0.0, Absolute Nucleated RBC 0.00, Nucleated RBC % 0.0 Fish Bones: 10/29/22 06:45 10/29/22 06:45 Home Medications and Allergies Home Medications: Ambulatory Orders Carbidopa/Levodopa ER 50/200 [Sinemet Cr 50 mg/200 mg] 2 tab PO HS 10/29/22 Active Medications Acetaminophen (Acetaminophen 325 Mg Tablet) 650 mg PO Q6HR CRUZ Amlodipine Besylate (Amlodipine 5 Mg Tablet) 2.5 mg PO BID CRUZ Carbidopa/Levodopa (Carbidopa/Levodopa Er 50 Mg/200 Mg Tablet) 1 tab PO 1000 [facility] Carbidopa/Levodopa (Carbidopa/Levodopa 25 Mg/100 Mg Tablet) 2 tab PO Q4HR CRUZ Carbidopa/Levodopa (Carbidopa/Levodopa Er 50 Mg/200 Mg Tablet) 2 tab PO HS CRUZ Cholecalciferol (Cholecalciferol 5,000 Unit Capsule) 5,000 unit PO 1000 [facility] Cyanocobalamin (Cyanocobalamin 500 Mcg Tablet) 1,000 mcg PO 1000 [facility] Heparin Sodium (Porcine) (Heparin 5,000 Unit/Ml Vial) 5,000 unit SUBQ BID CRUZ Hydromorphone HCl (Hydromorphone 0.5 Mg/0.5 Ml Syringe) 0.5 mg IVP Q2H PRN PRN Reason: Severe Pain (Level 7-10) Lactated Ringer's (Lr) 1,000 mls @ 50 mls/hr IV .Q20H CRUZ Levothyroxine Sodium (Levothyroxine 25 Mcg Tablet) 50 mcg PO 1000 [facility]ZU Lorazepam (Lorazepam 2 Mg/Ml Vial) 0.5 mg IVP Q1H PRN PRN Reason: Anxiety Losartan Potassium (Losartan 50 Mg Tablet) 50 mg PO 2200 [facility] Multivitamins (Multivitamin Tablet) 1 tab PO 1000 [facility] Non-Formulary Medication (Ropinirole Hcl [Ropinirole Er]) 8 mg PO 2200 [facility] Oxycodone HCl (Oxycodone 5 Mg Tablet) 5 mg PO Q4HR PRN PRN Reason: Moderate Pain (Level 4-6) Sodium Chloride (Sodium Chloride Flush 0.9% 10 Ml Syringe) 10 ml IVP PRN PRN PRN Reason: NEEDED PER PROVIDER ORDERS Sodium Chloride (Sodium Chloride Flush 0.9% 10 Ml Syringe) 10 ml IVP 0100,0900,1700 [facility] Sodium Chloride (Sodium Chloride Flush 0.9% 10 Ml Syringe) 10 ml IVP 0100,0900,1700 [facility] Sodium Chloride (Sodium Chloride Flush 0.9% 10 Ml Syringe) 10 ml IVP PRN PRN PRN Reason: NEEDED PER PROVIDER ORDERS Solifenacin (Solifenacin Succinate 5 Mg Tablet) 5 mg PO DAILY CRUZ Amlodipine Besylate 2.5 mg PO BID 12/17/17 Carbidopa/Levodopa [Carbidopa-Levo ER 50-200 Tab] 1 tab PO 1000 12/17/17 Carbidopa/Levodopa [Carbidopa-Levodopa 25-100 Tab] 2 tab PO Q4HR 12/17/17 Cholecalciferol (Vitamin D3) [Vitamin D3] 5,000 units PO 1000 12/17/17 Cyanocobalamin (Vitamin B-12) [Vitamin B-12 (500 mcg sublingual)] 1,[place] [address]/17/17 Levothy[place] [address]/17/17 Losartan Potassium 50 mg PO 219912/17/17 Multivitamin [Theragran] [place] [address]/17/17 Ropinirole HCl [Ropinirole ER] 8 mg PO 219912/17/17 Mirabegron [Myrbetriq] 25 mg ORAL DAILY 10/11/22 Carbidopa/Levodopa ER 50/200 [Sinemet Cr 50 mg/200 mg] 2 tab PO HS 10/29/22 Allergies/Adverse Reactions: Allergies Allergy/AdvReac Type Severity Reaction Status Date / Time No Known Drug Allergies Allergy Verified 10/29/22 06:37 Anes History & Medical History - Anesthetic History Anesthesia Complications: reports: No previous complications Family history of Anesthesia Complications: Denies Family history of Malignant Hyperthermia: Denies (not officially diagnosed with dementia, however states pt has significant short term memory loss and some usp memory loss) - Medical History Cardiovascular: reports: Hypertension, Valve disorder Pulmonary: reports: None Gastrointestinal: reports: GERD, GI bleed, Colon polyps Urinary: reports: Incontinence Neuro: reports: Parkinson's, Tremors, Other Musculoskeletal: reports: Osteoarthritis, Fatigue, Chronic back pain, Other (uses walker and a cane) Endocrine/Autoimmune: reports: HyPOthyroidism Blood Disorders: reports: None Skin: reports: None Smoking Status: Never smoker - Surgical History General: reports: Colonoscopy, EGD Cardiothoracic: reports: Valve replacement Neurologic: reports: Other Orthopedic: reports: Knee replacement Exam General: Other (pt obtunded) Dental: Partials Lower Mouth Openin Fingerbreadth Neck Mobility: Normal Mallampati classification: I Thyromental Distance: less than 4 cm Respiratory: Lungs clear Cardiovascular: Regular rate Mental/Cognitive Status: Lethargic, Other (obtunded) Cognitive Status: Memory impairment Plan Anesthesia Type: General, Total IV Consent for Procedure(s) Verified and Reviewed: Yes Code Status: Attempt Resuscitation ASA classification: 3-Severe systemic disease Is this case an emergency?: No
[2022-10-29] MEDS ORDERED: NALOXONE 0.4 MG/ML VIAL IVP PRN (12:16)
[2022-10-29] MEDS ORDERED: ATROPINE ABBOJECT 1 MG/10 ML SYRINGE IVP PRN (12:16)
[2022-10-29] MEDS ORDERED: ePHEDrine 50 MG/ML VIAL IVP PRN (12:16)
[2022-10-29] MEDS ORDERED: fentaNYL 100 MCG/2 ML VIAL IVP PRN (12:16)
[2022-10-29] MEDS ORDERED: ONDANSETRON 4 MG/2 ML VIAL IVP PRN (12:16)
[2022-10-29] MEDS ORDERED: MORPHINE 2 MG/ML CARPUJECT IVP PRN (12:16)
--- NOTE | 2022-10-29 12:24 | ANESTHESIA POST OP EVALUATION ---
Anesthesia Post Eval - Post Anesthesia Eval Vitals: Last Vital Signs Temp 36.2 C L 10/29/22 12:18 Pulse 49 L 10/29/22 12:18 Resp 13 10/29/22 12:18 BP 119/65 10/29/22 12:18 Pulse Ox 99 10/29/22 12:18 O2 Flow Rate CV Function Including HR & BP: Stable Pain Control: Satisfactory Nausea & Vomiting: Negative Mental Status: Baseline Respiratory Status: Airway Patent Hydration Status: Satisfactory Anesthesia Complications: None
[2022-10-29] MEDS: SODIUM CHLORIDE FLUSH 0.9% 10 ML SYRINGE IVP SCH ×3 (12:51→16:32)
[2022-10-29] MEDS: ACETAMINOPHEN 325 MG TABLET PO SCH ×2 (12:58→18:40)
[2022-10-29] MEDS: CARBIDOPA/LEVODOPA 25 MG/100 MG TABLET PO SCH ×3 (12:58→21:11)
[2022-10-29] MEDS: HEPARIN 5,000 UNIT/ML VIAL SUBQ SCH ×2 (12:59→21:17)
--- NOTE | 2022-10-29 14:09 | PHARMACY PROGRESS NOTE ---
- Best Possible Medication History Admit Date and Time: 10/29/22 0742 Processed by: Pharmacy Medication History completed: Yes Patient Interview: Completed Secondary Source(s): Spouse/Significant other, Pharmacy records As the person ultimately responsible for medication therapy, providers are able to order a medication from an existing home medication list in [facility] via the "Reconcile Routine" prior to Confirmation of that medication by director decision support. Such practice is discouraged except when the physician, in their clinical judgment, deems that a medical need exists for a medication without regard to previous use.
[2022-10-29] MEDS: ENTACAPONE 200 MG PO SCH (17:10)
[2022-10-29] MEDS ORDERED: CARBIDOPA/LEVODOPA ER 50 MG/200 MG TABLET PO SCH (21:00)
[2022-10-29] MEDS: amLODIPine 5 MG TABLET PO SCH (21:13)
[2022-10-29] MEDS ORDERED: LOSARTAN 50 MG TABLET PO SCH (22:00)
[2022-10-29] MEDS ORDERED: ROPINIROLE 8 MG PO SCH (22:00)
[2022-10-30] MEDS: ACETAMINOPHEN 325 MG TABLET PO SCH ×2 (00:09→05:39)
[2022-10-30] MEDS: CARBIDOPA/LEVODOPA 25 MG/100 MG TABLET PO SCH ×2 (00:12→04:27)
[2022-10-30] MEDS: SODIUM CHLORIDE FLUSH 0.9% 10 ML SYRINGE IVP SCH ×4 (04:28→09:24)
[2022-10-30] MEDS: ENTACAPONE 200 MG PO SCH ×2 (05:39→09:22)
--- NOTE | 2022-10-30 06:02 | PROVIDER PROGRESS NOTE ---
Progress Note General Surgery Post-op Progress Note S: Comfortable; Eating well; Minimal right incisional pain O: VSS, afeb; Abdomen is soft. Right groin dressing dry - minimal ecchymosis/edema A: Progressing well after surgery for incarcerated RIH P: Discharge to home today; Tylenol/Ibuprofen for pain control; May remove dressing tomorrow and shower; FU Surgery Clinic in 7-10 days or sooner as needed. Gordon Viveros MD General Surgery Servcie
--- NOTE | 2022-10-30 06:06 | Discharge Plan ---
Discharge Plan Problem Reviewed?: Yes Disposition: Home, Self Care Condition: Good Prescriptions: Acetaminophen [Tylenol] 650 mg PO Q6HR 5 Days #50 tab Ibuprofen 600 mg PO TID 5 Days #50 tablet Diet: Regular Activity Restrictions: Activity as Tolerated Shower Restrictions: Yes (Tomorrow, remove dressing and may shower) Instruction Topics: Inguinal Hernia Repair After Ch Plan of Treatment: Diet: General Activity: Ambulate; Avoid exercise that causes right groin discomfort; Use ice pack on right groin if it becomes sore Medications: Use all pre-hospital medication as usual. in addition, use Tylenol 650 mg orally 4 x a day and Ibuprofen 600 mg orally 3 x a day with meals Follow-up: General Surgery clinic in 7-10 days; Your PCP as needed. Additional Instructions or Follow Up instructions: Follow up in the General Surgery Clinic in 7-10 days Follow up with your PCP per prior arrangements No Smoking: If you smoke, Please STOP! Call for help.
[2022-10-30] MEDS ORDERED: CARBIDOPA/LEVODOPA 25 MG/100 MG TABLET PO SCH (07:39)
[2022-10-30] MEDS: HEPARIN 5,000 UNIT/ML VIAL SUBQ SCH (08:21)
[2022-10-30] MEDS: SOLIFENACIN SUCCINATE 5 MG TABLET PO SCH ×2 (08:24→09:18)
[2022-10-30] MEDS: amLODIPine 5 MG TABLET PO SCH (09:14)
[2022-10-30] MEDS ORDERED: LEVOTHYROXINE 25 MCG TABLET PO SCH (10:00)
[2022-10-30] MEDS ORDERED: CYANOCOBALAMIN 500 MCG TABLET PO SCH (10:00)
[2022-10-30] MEDS ORDERED: CHOLECALCIFEROL 5,000 UNIT CAPSULE PO SCH (10:00)
[2022-10-30] MEDS ORDERED: CARBIDOPA/LEVODOPA ER 50 MG/200 MG TABLET PO SCH (10:00)
[2022-10-30] MEDS ORDERED: MULTIVITAMIN TABLET PO SCH (10:00)
[2022-10-30 11:46] VITALS: BP 140/62; O2SAT 94
== END 2022-10-30 12:25 | disposition home or self-care (01) ==
LOC: ED 06:29 → MS2 07:42
PROVIDERS: ADMIT Surgery; ATTEND Surgery
PROC: 0VBF0ZZ Excision of Right Spermatic Cord, Open Approach (ICD-10-PCS; principal; 2022-10-29 10:30)
DX: K40.31 Unilateral inguinal hernia, with obstruction, without gangrene, recurrent (principal); D17.6 Benign lipomatous neoplasm of spermatic cord; G20 Parkinson's disease; G89.29 Other chronic pain; I10 Essential (primary) hypertension; E03.9 Hypothyroidism, unspecified; K21.9 Gastro-esophageal reflux disease without esophagitis; K59.00 Constipation, unspecified; H91.90 Unspecified hearing loss, unspecified ear; F32.A Depression, unspecified; F41.9 Anxiety disorder, unspecified; M19.90 Unspecified osteoarthritis, unspecified site; M54.9 Dorsalgia, unspecified; Z79.890 Hormone replacement therapy; Z79.899 Other long term (current) drug therapy; Z95.2 Presence of prosthetic heart valve; Z96.659 Presence of unspecified artificial knee joint; Z96.82 Presence of neurostimulator
CPT/HCPCS: 36415; 49521; 55520; 80053; 85025; 93005; 96374; 96375; 99284; 99285; A9270; C1781; J0131; J1170; J2060; J7120

== ENCOUNTER 2022-12-23 12:30 | Outpatient (CLI) | payer MEDICARE | END 2022-12-23 23:59 | disposition critical access hospital (66) | LOC: EMS 12:30 | DX: S01.01XA Laceration without foreign body of scalp, initial encounter (principal); W01.198A Fall on same level from slipping, tripping and stumbling with subsequent striking against other object, initial encounter; Y92.008 Other place in unspecified non-institutional (private) residence as the place of occurrence of the external cause; Z96.82 Presence of neurostimulator | CPT/HCPCS: A0425; A0429 ==

== ENCOUNTER 2022-12-23 12:51 | Emergency (ER) | payer MEDICARE ==
[2022-12-23] MEDS ORDERED: TETANUS/DIPHTHERIA/PERTUSSIS 0.5 ML SYRINGE IM ONE (14:30)
[2022-12-23] MEDS ORDERED: CARBIDOPA/LEVODOPA 25 MG/100 MG TABLET PO STA (14:33)
--- NOTE | 2022-12-23 14:34 | ED Physician Documentation ---
History of Present Illness - Stated complaint Stated Complaint: FALL/HEAD INJ - Chief complaint Chief Complaint: Trauma Hd/Nk - Additonal information Additional information: 81-year-old male presents emergency department for evaluation of a ground-level fall and occipital hematoma/laceration. He does have a history of Parkinson's. A new stand lift chair was being delivered and he was trying to move some furniture when he tripped falling striking his head on a bookcase. He is not anticoagulated. There was no loss of consciousness. Is a 4 cm laceration to the left posterior occiput. No focal neurodeficits. 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 HEENT: Chronic hearing loss Psych: Depression, Anxiety, Other Musculoskeletal: Osteoarthritis, Fatigue, Chronic back pain, Other Derm: None - Past Surgical History Past Surgical History: Yes General: Colonoscopy, EGD Ortho: Knee replacement Cardiovascular: Valve replacement Neuro: Other Derm: Other - Present Medications Home Medications: Ambulatory Orders Medication Instructions Recorded Confirmed Amlodipine Besylate 2.5 mg PO BID 12/17/17 10/29/22 Carbidopa/Levodopa [Carbidopa-Levo 1 tab PO 1000 12/17/17 10/29/22 ER 50-200 Tab] Carbidopa/Levodopa 2 tab PO Q4HR 12/17/17 10/29/22 [Carbidopa-Levodopa 25-100 Tab] Cholecalciferol (Vitamin D3) 5,[place] [address]/17/17 10/29/22 [Vitamin D3] Cyanocobalamin (Vitamin B-12) 1,[place] [address]/17/17 10/29/22 [Vitamin B-12 (500 mcg sublingual)] Levothy[place]odium [place] [address]/17/17 10/29/22 Losartan Potassium 50 mg PO 2200 12/17/17 10/29/22 Multivitamin [Theragran] [place] [address]/17/17 10/29/22 Ropinirole HCl [Ropinirole ER] 8 mg PO 2200 12/17/17 10/29/22 LORazepam [Ativan] 0.5 mg PO BID PRN #12 tablet 10/23/21 10/29/22 Mirabegron [Myrbetriq] 50 mg ORAL DAILY 10/11/22 10/29/22 Carbidopa/Levodopa ER 50/200 2 tab PO HS 10/29/22 10/29/22 [Sinemet Cr 50 mg/200 mg] Entacapone [Comtan] 1 tab PO QID 10/29/22 10/29/22 Acetaminophen [Tylenol] 650 mg PO Q6HR 5 Days #50 tab 10/30/22 Ibuprofen 600 mg PO TID 5 Days #50 tablet 10/30/22 - Allergies Allergies/Adverse Reactions: Allergies Allergy/AdvReac Type Severity Reaction Status Date / Time No Known Drug Allergies Allergy Verified 12/23/22 13:18 - Social History Does the pt smoke?: No Smoking Status: Never smoker Does the pt drink ETOH?: No Does the pt have substance abuse?: No - Immunizations Immunizations are current?: Yes - POLST Patient has POLST: No POLST Status: Full Code PD ED PE NORMAL - General General: Alert and oriented X 3, No acute distress - HEENT HEENT: Other (Negative for hemotympanums, raccoon eyes and finch sign.). No: Atraumatic (4 cm vertical laceration left posterior occiput.) - Neck Neck: Supple, no meningeal sign, C-Spine cleared by NEXUS criteria - Cardiac Cardiac: RRR, No murmur - Respiratory Respiratory: No respiratory distress - Abdomen Abdomen: Normal bowel sounds, Soft - Neuro Neuro: Alert and oriented X 3, hammer fitter 2-12 intact Eye Opening: Spontaneous Motor: Obeys Commands Verbal: Oriented GCS Score: 15 Results - Vitals Vitals: Vital Signs - 24 hr 12/23/22 12/23/22 12/23/22 13:03 13:42 15:05 Temperature 36.1 C L Heart Rate 56 L 54 L 63 Respiratory 18 18 18 Rate Blood Pressure 175/92 H 140/88 H 169/87 H O2 Saturation 100 100 94 12/23/22 17:24 Temperature Heart Rate 61 Respiratory 24 Rate Blood Pressure 147/82 H O2 Saturation 98 Oxygen O2 Source Room air - Rads (name of study) CT head Relevant Findings:: Final report received (No CT evidence of acute intracranial abnormalities. Age-related volume loss and white matter chronic small vessel ischemic changes. Left-sided neurostimulator in place.) Procedures - Laceration (location) posterior occiput Length in cm: 5 Wound type: Linear, Into subcut fat Wound preparation: Chlorhexadine, Irrigated copiously NS Skin layer closure: [place] (5 christian placed) Other: Patient tolerated well, No complications, Tetanus booster given PD Medical Decision Making - ED course Complexity details: reviewed results, re-evaluated patient, d/w patient ED course: 81-year-old male here for evaluation of a posterior scalp laceration sustained when he was moving furniture at home to make wait for a new lift chair and he fell striking his head on a bookcase. No lapse in consciousness. Does have a history of Parkinson's with a deep brain stimulator in place. On presentation the emergency department alert and well-appearing nonfocal neurological exam. He did have a 4 and half centimeter laceration posterior occiput which was closed with 5 christian. Given the history and mechanism as well as a large hematoma on the posterior scalp a CT of the head was obtained to rule out bruising or bleeding within the brain and reassuringly the CT is negative. I discussed with patient the routine conservative care measures of closed head injuries, management of the stapled wound as well as the usual emergent return precautions. Departure - Departure Disposition: 01 Home, Self Care Clinical Impression: Ground-level fall, History of Parkinson's disease Occipital scalp laceration Qualifiers: Encounter type: initial encounter Qualified Code(s): S01.01XA - Laceration without foreign body of scalp, initial encounter Condition: Stable Comments: The CT of your head did not show any bruising or bleeding within the brain. We did close your scalp laceration with 5 christian. These should be left in place for the next 7 to 10 days. They can be removed and any quick visit to an urgent care or emergency department. In general you can shower and bathe normally. Place a thin layer of any antibiotic ointment such as bacitracin or triple antibiotic over the wound. Return for any concerns of infection surrounding the wound though scalp lacerations rarely get infected. Return sooner to the ER if you have any sudden severe headache, uncontrolled vomiting, slurred speech, facial droop or focal weakness in your arms or legs different than your normal Parkinson symptoms Forms: PCP List
[2022-12-23 17:25] VITALS: BP 147/82; O2SAT 98
--- NOTE | 2022-12-23 17:26 | CT Report ---
PROCEDURE: HEAD WO INDICATIONS: glf TECHNIQUE: Noncontrast 4.5 mm thick angled axial sections acquired from the foramen magnum to the vertex. For r adiation dose reduction, the following was used: automated exposure control, adjustment of mA and/or kV according to patient size. COMPARISON: None. FINDINGS: Image quality: Excellent. CSF spaces: Basal cisterns are patent. No extra-axial fluid collections. Ventricles are normal in size and shape. Brain: Likely brain stimulator lead is seen just to the left of midline in the region of left basal g anglia/thalamus. No midline shift. No intracranial masses or hemorrhage. Age-related volume loss an d mild periventricular and deep white matter chronic small vessel ischemic changes are seen. Emerson-whi te matter interface is normal. Skull and face: Calvarium and visualized facial bones are intact, without suspicious lesions. Sinuses: Mild mucosal thickening in right maxillary sinus and bilateral ethmoid sinuses is seen. Bila teral mastoids are well aerated. IMPRESSION: 1. No CT evidence of acute intracranial abnormalities. 2. Age-related volume loss and white matter chronic small vessel ischemic changes. 3. Left-sided neurostimulator in place. Reviewed by: Abel Villegas MD on 12/23/2022 5:24 PM PDT Approved by: Abel Villegas MD on 12/23/2022 5:24 PM PDT Station ID: [id number]
== END 2022-12-23 18:17 | disposition home or self-care (01) ==
LOC: ED 12:51
DX: S01.01XA Laceration without foreign body of scalp, initial encounter (principal); W01.190A Fall on same level from slipping, tripping and stumbling with subsequent striking against furniture, initial encounter; Y93.89 Activity, other specified; Y92.009 Unspecified place in unspecified non-institutional (private) residence as the place of occurrence of the external cause; G20.A1 Parkinson's disease without dyskinesia, without mention of fluctuations
CPT/HCPCS: 12002; 70450; 90471; 90715; 99283; 99284; A9270

== ENCOUNTER 2023-03-12 14:19 | Emergency (ER) | payer MEDICARE ==
[2023-03-12 14:49] VITALS: BP 148/71; O2SAT 98
--- NOTE | 2023-03-12 14:56 | ED Physician Documentation ---
History of Present Illness - Stated complaint Stated Complaint: RT SIDE HIP PX - Chief complaint Chief Complaint: Ext Problem - Additonal information Additional information: Patient 82-year-old male presenting to the emergency department with right lower quadrant abdominal pain and hip pain. Pain ongoing x 2-3 days. Denies similar episodes pain in the past. Reports history of right inguinal hernia but states that this feels different. No associated fever, nausea, vomiting, diarrhea, constipation. Review of Systems Constitutional: denies: Fever Eyes: denies: Loss of vision Ears: denies: Loss of hearing Nose: denies: Rhinorrhea / runny nose Throat: denies: Dental pain / toothache Cardiac: denies: Chest pain / pressure Respiratory: denies: Dyspnea GI: reports: Abdominal Pain. 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 HEENT: Chronic hearing loss Psych: Depression, Anxiety, Other Musculoskeletal: Osteoarthritis, Fatigue, Chronic back pain, Other Derm: None - Past Surgical History Past Surgical History: Yes General: Colonoscopy, EGD Ortho: Knee replacement Cardiovascular: Valve replacement Neuro: Other Derm: Other - Present Medications Home Medications: Ambulatory Orders Medication Instructions Recorded Confirmed Amlodipine Besylate 2.5 mg PO BID 12/17/17 10/29/22 Carbidopa/Levodopa [Carbidopa-Levo 1 tab PO 1000 12/17/17 10/29/22 ER 50-200 Tab] Carbidopa/Levodopa 2 tab PO Q4HR 12/17/17 10/29/22 [Carbidopa-Levodopa 25-100 Tab] Cholecalciferol (Vitamin D3) 5,[place] [address]/17/17 10/29/22 [Vitamin D3] Cyanocobalamin (Vitamin B-12) 1,[place] [address]/17/17 10/29/22 [Vitamin B-12 (500 mcg sublingual)] Levothyroxine [place] [address]/17/17 10/29/22 Losartan Potassium 50 mg PO 219912/17/17 10/29/22 Multivitamin [[place]agran] [place] [address]/17/17 10/29/22 Ropinirole HCl [Ropinirole ER] 8 mg PO 2200 12/17/17 10/29/22 LORazepam [Ativan] 0.5 mg PO BID PRN #12 tablet 10/23/21 10/29/22 Mirabegron [Myrbetriq] 50 mg ORAL DAILY 10/11/22 10/29/22 Carbidopa/Levodopa ER 50/200 2 tab PO HS 10/29/22 10/29/22 [Sinemet Cr 50 mg/200 mg] Entacapone [Comtan] 1 tab PO QID 10/29/22 10/29/22 Acetaminophen [Tylenol] 650 mg PO Q6HR 5 Days #50 tab 10/30/22 Ibuprofen 600 mg PO TID 5 Days #50 tablet 10/30/22 - Allergies Allergies/Adverse Reactions: Allergies Allergy/AdvReac Type Severity Reaction Status Date / Time No Known Drug Allergies Allergy Verified 12/23/22 13:18 - Social History Does the pt smoke?: No Smoking Status: Never smoker Does the pt drink ETOH?: No Does the pt have substance abuse?: No - Immunizations Immunizations are current?: Yes - POLST Patient has POLST: No POLST Status: Full Code PD ED PE NORMAL - General General: Alert and oriented X 3, No acute distress, Well developed/nourished, Other (Patient elderly, frail.) - HEENT HEENT: Atraumatic, PERRL, EOMI, Ears normal, Moist mucous membranes, Pharynx benign - Neck Neck: Supple, no meningeal sign, No bony TTP, No adenopathy, Thyroid normal - Cardiac Cardiac: RRR, No murmur, No gallop, Strong equal pulses - Respiratory Respiratory: No respiratory distress - Abdomen Abdomen: Normal bowel sounds, Other (Right lower quadrant tenderness to palpation.) - Male Male : Deferred - Rectal Rectal: Deferred - Back Back: No CVA TTP, No spinal TTP - Derm Derm: Normal color - Extremities Extremities: No deformity - Neuro Neuro: Alert and oriented X 3, 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, No motor deficit, Normal speech Results - Vitals Vitals: Vital Signs - 24 hr 03/12/23 14:37 Temperature 36.7 C Heart Rate 53 L Respiratory 18 Rate Blood Pressure 148/71 H O2 Saturation 98 Oxygen O2 Source Room air - Labs Labs: Laboratory Tests 03/12/23 03/12/23 03/12/23 14:59 14:59 14:59 WBC 5.0 RBC 4.13 L Hgb 13.2 L Hct 39.9 L MCV 96.6 H MCH 32.0 H MCHC 33.1 RDW 12.1 Plt Count 164 MPV 9.6 Neut # (Auto) 3.6 Lymph # (Auto) 0.8 L Bollinger # (Auto) 0.5 Eos # (Auto) 0.2 Baso # (Auto) 0.0 Absolute Nucleated RBC 0.00 Nucleated RBC % 0.0 Sodium 137 Potassium 3.9 Chloride 103 Carbon Dioxide 30 Anion Gap 4.0 L BUN 18 Creatinine 1.3 Estimated GFR (MDRD) 53 L Glucose 89 Lactic Acid 0.6 Calcium 9.1 Total Bilirubin 0.6 AST 17 ALT < 3 L Alkaline Phosphatase 50 Total Protein 6.9 Albumin 4.1 Globulin 2.8 Albumin/Globulin Ratio 1.5 Lipase < 10 L PD Medical Decision Making - ED course Complexity details: reviewed results, re-evaluated patient, d/w patient ED course: Patient 82-year-old male presenting with right-sided hip, flank pain. Afebrile, he medically stable and arrival to the emergency department. Some right Lower quadrant tenderness on exam. Labs obtained within normal limits are generally nonactionable. CT of the abdomen pelvis nonacute. Patient does have mild renal dysfunction however this is consistent with his baseline. Able to ambulate in the emergency department without difficulty. Reports that he has been doing well managing his pain with acetaminophen and ibuprofen. I did discuss the importance of using ibuprofen only in moderation in the setting of his chronic renal insufficiency. At this time will discharge for follow-up with primary care. Clear return precautions given. Departure - Departure Disposition: 01 Home, Self Care Clinical Impression: Hip pain Qualifiers: Laterality: right Qualified Code(s): M25.551 - Pain in right hip Comments: Thank you for allowing us to care for you today at [facility]. Today in the emergency department you were evaluated for any possible dangerous or life-threatening medical condition. All the testing performed in the emergency department today including your blood work and the CT scan of your abdomen and pelvis were all very reassuring. I would like you to follow-up with your primary care doctor soon as possible. As we discussed you can use acetaminophen at home for pain control. I recommend using ibuprofen only sparingly as this can be injuries to your kidneys and you do have mild kidney insufficiency. Other things that can be quite helpful can be the application of heat packs or ice packs to the affected area. I recommend you use your foreleg walker at all times in and out of your home to decrease your risk for falls. Please follow-up with your primary care doctor soon as possible. If it anytime you develop any new or worsening symptoms please not hesitate to return. Forms: PCP List
[2023-03-12 15:10] LABS: BASOPHILS % (AUTO) 0.4 %; EOSINOPHILS # (AUTO) 0.2 10^3/uL (0.0-0.7); HCT - HEMATOCRIT 39.9 % (42.0-52.0); HGB - HEMOGLOBIN 13.2 g/dL (14.0-18.0); LYMPHOCYTES # (AUTO) 0.8 10^3/uL (1.5-3.5); LYMPHOCYTES % (AUTO) 16.3 %; MEAN CORPUSCULAR HGB CONC 33.1 g/dL (32.0-36.0); MEAN CORPUSCULAR VOLUME 96.6 fL (80.0-94.0); MEAN PLATELET VOLUME 9.6 fL (7.4-11.4); MONOCYTES # (AUTO) 0.5 10^3/uL (0.0-1.0); MONOCYTES % (AUTO) 9.7 %; NEUTROPHILS # (AUTO) 3.6 10^3/uL (1.5-6.6); NEUTROPHILS % (AUTO) 70.4 %; PLT - PLATELET COUNT 164 10^3/uL (130-450); RED BLOOD COUNT 4.13 10^6/uL (4.70-6.10); RED CELL DISTRIBUTION WIDTH 12.1 % (12.0-15.0)
[2023-03-12 15:19] LABS: ALBUMIN 4.1 g/dL (3.2-5.5)
[2023-03-12 15:24] LABS: ALBUMIN/GLOBULIN RATIO 1.5 (1.0-2.2); ALKALINE PHOSPHATASE 50 IU/L (42-121); ALT ALANINE AMINOTRANSFERASE < 3 IU/L (10-60); AST ASPARTATE AMINOTRANSFERASE 17 IU/L (10-42); BILIRUBIN,TOTAL 0.6 mg/dL (0.2-1.0); BUN - BLOOD UREA NITROGEN 18 mg/dL (6-20); CALCIUM 9.1 mg/dL (8.5-10.3); CARBON DIOXIDE - CO2 30 mmol/L (21-32); CHLORIDE 103 mmol/L (101-111); CREATININE 1.3 mg/dL (0.6-1.3); GFR - MDRD 53 (>89); GLUCOSE 89 mg/dL (74-104); LIPASE < 10 U/L (11-82); POTASSIUM 3.9 mmol/L (3.5-4.5); SODIUM 137 mmol/L (135-145); TOTAL PROTEIN 6.9 g/dL (6.4-8.9)
--- NOTE | 2023-03-12 16:53 | CT Report ---
PROCEDURE: ABDOMEN/PELVIS W INDICATIONS: RLQ abd pain CONTRAST: Omni 300 100ml TECHNIQUE: After the administration of intravenous contrast, 5 mm thick sections acquired from the diaphragms to the symphysis. 5 mm thick coronal and sagittal reformats were acquired. For radiation dose reducti on, the following was used: automated exposure control, adjustment of mA and/or kV according to ezio ent size. COMPARISON: 01/02/2017 FINDINGS: Image quality: Excellent. Lung bases and heart: An aortic valve prosthesis is partially seen. Liver: No solid mass. Gallbladder and biliary tree: Within normal limits. Spleen: No splenomegaly. Pancreas: No pancreatic ductal dilation. Adrenals: No adrenal nodule. Kidneys and ureters: No hydronephrosis. Simple appearing bilateral renal cysts are seen, right more p rominent than left. No solid mass. Bowel and peritoneum: In this patient with this given history, scrutiny is given to the appendix. A n ormal-appearing appendix is seen, as on series 2 image 55. No focal right lower quadrant inflammatory change can be seen. There is a moderate volume of stool seen within the colon. No bowel distension. No pathologic free fluid. Diverticulosis can be seen, without sadie findings of active diverticulitis . Lymph nodes: No central or retroperitoneal adenopathy. Vessels: No infrarenal aortic aneurysm. Atherosclerotic calcification is seen. PELVIS Reproductive organs: Unremarkable. Bladder: No abnormal wall thickening, accounting for underdistension. Pelvic lymph nodes: No pelvic adenopathy by size criteria. Bones: No aggressive osseous abnormality. There is a remote appearing T12 fracture. Focal L3-L4 degen erative change is seen. Mild levoconvex scoliotic curvature is seen. Other: No significant ventral or inguinal hernia. IMPRESSION: Normal appendix. No focal right lower quadrant inflammatory change can be seen. There is a moderate amount of stool seen within the colon. Please correlate with clinical constipatio n. Additional findings: Simple right renal cysts Remote appearing T12 anterior wedge deformity Focal L3-L4 degenerative change Levoconvex scoliotic curvature Diverticulosis, without findings of active diverticulitis. Reviewed by: Horacio Wilson MD on 03/12/2023 3:51 PM AKST Approved by: Horacio Wilson MD on 03/12/2023 3:51 PM [place] Station ID: [id number]
[2023-03-12] MEDS ORDERED: iohexoL-300 100 ML VIAL IVP ONE (16:54)
== END 2023-03-12 17:47 | disposition home or self-care (01) ==
LOC: ED 14:19
DX: M25.551 Pain in right hip (principal); I10 Essential (primary) hypertension; G20.A1 Parkinson's disease without dyskinesia, without mention of fluctuations; E03.9 Hypothyroidism, unspecified; Z79.899 Other long term (current) drug therapy
CPT/HCPCS: 36415; 74177; 80053; 83605; 83690; 85025; 99283; 99284; Q9967

== ENCOUNTER 2023-03-16 13:13 | Outpatient (CLI) | payer MEDICARE ==
--- NOTE | 2023-03-16 15:54 | XRAY Report ---
PROCEDURE: Hip w/Pelvis 2-3V RT INDICATIONS: RIGHT GROIN PAIN TECHNIQUE: 2 view(s) of the pelvis acquired. COMPARISON: 10/11/2022. FINDINGS: Bones: No acute fractures or dislocations. No suspicious bony lesions. Moderate degenerative change s of the bilateral hip. Lower lumbar spondylosis. Soft tissues: Visualized bowel gas pattern is normal. No suspicious soft tissue calcifications. V ascular calcifications. IMPRESSION: No acute bony abnormality. Degenerative changes of the bilateral hip. If there is continued clinical concern for pathology or occult fracture, consider follow-up imaging w ith repeat radiographs in 10-14 days and possible advanced imaging (CT, MRI, bone scan) if symptoms p ersist. Reviewed by: Justin Jack MD on 03/16/2023 3:53 PM PST Approved by: Justin Jack MD on 03/16/2023 3:53 PM PST Station ID: [id number]
== END 2023-03-16 13:14 | disposition home or self-care (01) ==
LOC: DI 13:13
PROVIDERS: ATTEND Internal Medicine
DX: M16.0 Bilateral primary osteoarthritis of hip (principal)

== ENCOUNTER 2023-03-27 11:58 | Outpatient (CLI) | payer MEDICARE ==
--- NOTE | 2023-03-27 16:58 | Ultrasound Report ---
PROCEDURE: Pelvic Limited INDICATIONS: RIGHT GROIN PAIN TECHNIQUE: Real-time transabdominal scanning was performed of the pelvic organs, with image documentation. COMPARISON: None. FINDINGS: Artifact from mesh is present. There is questionable appearance of right inguinal hernia lungs. Media l aspect. It is difficult to discern this is bowel are fat-containing. IMPRESSION: Suspicion for recurrent hernia. Further evaluation with CT is recommended Reviewed by: Izzy Menchaca MD on 03/27/2023 4:57 PM PST Approved by: Izzy Menchaca MD on 03/27/2023 4:57 PM PST Station ID: [id number]
== END 2023-03-27 11:59 | disposition home or self-care (01) ==
LOC: DI 11:58
PROVIDERS: ATTEND Internal Medicine
DX: R10.31 Right lower quadrant pain (principal)

== ENCOUNTER 2023-03-28 01:40 | Outpatient (CLI) | payer MEDICARE | END 2023-03-28 01:41 | disposition home or self-care (01) | LOC: EMS 01:40 | DX: R10.30 Lower abdominal pain, unspecified (principal); K59.00 Constipation, unspecified | CPT/HCPCS: A0425; A0429 ==

== ENCOUNTER 2023-03-28 01:52 | Emergency (ER) | payer MEDICARE ==
--- NOTE | 2023-03-28 02:02 | ED Physician Documentation ---
PD HPI ABD PAIN - Stated complaint Stated Complaint: ABD PX - History obtained from History obtained from: Patient, EMS Review of Systems Constitutional: denies: Fever, Chills GI: reports: Constipation. denies: Abdominal Swelling, Nausea, Vomiting, Diarrhea, Bloody / black stool PD PAST MEDICAL HISTORY - Past Medical History Cardiovascular: Hypertension, Valve disorder Respiratory: None Neuro: Parkinson's, Tremors, Other Endocrine/Autoimmune: HyPOthyroidism GI: GERD, GI bleed, Colon polyps [employer]ANG[employer] HE[employer]: None : Incontinence HEENT: Chronic hearing loss Psych: Depression, Anxiety, Other Musculoskeletal: Osteoarthritis, Fatigue, Chronic back pain, Other Derm: None - Past Surgical History Past Surgical History: Yes General: Colonoscopy, EGD Ortho: Knee replacement Cardiovascular: Valve replacement Neuro: Other Derm: Other - Present Medications Home Medications: Ambulatory Orders Medication Instructions Recorded Confirmed Amlodipine Besylate 2.5 mg PO BID 12/17/17 03/28/23 Carbidopa/Levodopa [Carbidopa-Levo 1 tab PO 1000 12/17/17 10/29/22 ER 50-200 Tab] Carbidopa/Levodopa 2 tab PO Q4HR 12/17/17 03/28/23 [Carbidopa-Levodopa 25-100 Tab] Cholecalciferol (Vitamin D3) 5,000 units PO 1000 12/17/17 10/29/22 [Vitamin D3] Cyanocobalamin (Vitamin B-12) 1,000 mcg PO 1000 12/17/17 10/29/22 [Vitamin B-12 (500 mcg sublingual)] Levothyroxine Sodium 50 mcg PO 1000 12/17/17 03/28/23 Losartan Potassium 50 mg PO 219912/17/17 03/28/23 Multivitamin [Theragran] 1 tab PO 1000 12/17/17 03/28/23 Ropinirole HCl [Ropinirole ER] 8 mg PO 219912/17/17 03/28/23 LORazepam [Ativan] 0.5 mg PO BID PRN #12 tablet 10/23/21 03/28/23 Mirabegron [Myrbetriq] 50 mg ORAL DAILY 10/11/22 03/28/23 Carbidopa/Levodopa ER 50/200 2 tab PO HS 10/29/22 10/29/22 [Sinemet Cr 50 mg/200 mg] Entacapone [Comtan] 1 tab PO QID 10/29/22 03/28/23 Acetaminophen [Tylenol] 650 mg PO Q6HR 5 Days #50 tab 10/30/22 Ibuprofen 600 mg PO TID 5 Days #50 tablet 10/30/22 Docusate Sodium 100Mg Capsule 100 mg PO DAILY #20 cap 03/28/23 [Colace 100Mg Capsule] HYDROcod/ACETAM 5/325 [Taylor 5/325] 1 ea PO Q6H PRN #10 tablet 03/28/23 Lactulose 15 ml PO QID PRN #240 ml 03/28/23 - Allergies Allergies/Adverse Reactions: Allergies Allergy/AdvReac Type Severity Reaction Status Date / Time No Known Drug Allergies Allergy Verified 03/28/23 02:10 - Social History Does the pt smoke?: No Smoking Status: Never smoker Does the pt drink ETOH?: No Does the pt have substance abuse?: No - Immunizations Immunizations are current?: Yes - POLST Patient has POLST: No POLST Status: Full Code PD ED PE NORMAL - Vitals Vital signs reviewed: Yes - General General: Alert and oriented X 3, No acute distress, Well developed/nourished - Neck Neck: Supple, no meningeal sign, No adenopathy - Cardiac Cardiac: RRR, No murmur - Respiratory Respiratory: No respiratory distress, Clear bilaterally - Abdomen Abdomen: Normal bowel sounds, Soft, Non distended, No organomegaly, Other (haling scar right inguinal area. No signs of infection. No noted hernia felt. There is some general pooching of the area with stomach tightening c/w weak musculature of the area. ) - Male Male : Other (no swellling, tenderness nor mass of the scrotum. ) - Rectal Rectal: Deferred - Back Back: No CVA TTP - Derm Derm: Normal color, Warm and dry - Neuro Neuro: Alert and oriented X 3, No motor deficit, Normal speech Results - Vitals Vitals: Oxygen O2 Source Room air - Labs Labs: Laboratory Tests 03/28/23 03/28/23 02:20 02:20 WBC 5.9 RBC 4.06 L Hgb 13.1 L Hct 39.7 L MCV 97.8 H MCH 32.3 H MCHC 33.0 RDW 12.4 Plt Count 176 MPV 10.1 Neut # (Auto) 4.1 Lymph # (Auto) 0.9 L [place] # (Auto) 0.7 Eos # (Auto) 0.2 Baso # (Auto) 0.0 Absolute Nucleated RBC 0.00 Nucleated RBC % 0.0 Sodium 138 Potassium 4.0 Chloride 107 Carbon Dioxide 27 Anion Gap 4.0 L BUN 22 H Creatinine 1.3 Estimated GFR (MDRD) 53 L Glucose 81 Calcium 9.1 Total Bilirubin 0.6 AST 17 ALT 4 L Alkaline Phosphatase 52 Total Protein 6.8 Albumin 4.0 Globulin 2.8 Albumin/Globulin Ratio 1.4 Lipase 11 - Rads (name of study) sonia/pelvic CT Relevant Findings:: Prelim report reviewed (no acute processlarge stool burden. Diverticulosis without diverticulitis. ), EMP independent interpretation of test PD Medical Decision Making - ED course Complexity details: reviewed results (abd/pelvic CT without signs of hernia. No acute process otherwise. Generaous amount of stool in colon. ), re-evaluated patient (I think he is having osme stretching of the soft tissue around the mesh and repair area due to movement and distension from constipation, causing pain in the area. Some movement of the area with stomach tightening (less muscle strength there) but I do not feel hernia per se. He can get f/u eval.), considered differential (has had prior hernia repair months ago right lower inguinal. Has had pain in the area with standing and movemnent recently the past week or so. No new injury. Has had limited stool output for 3-4 days. ), d/w patient Departure - Departure Disposition: 01 Home, Self Care Clinical Impression: Right lower quadrant abdominal pain, Constipation Condition: Stable Record reviewed to determine appropriate education?: Yes Instructions: ED Constipation Follow-Up: Surgical Care [Provider Group] Prescriptions: Docusate Sodium 100Mg Capsule [Colace 100Mg Capsule] 100 mg PO DAILY #20 cap Lactulose 15 ml PO QID PRN #240 ml PRN Reason: Constipation HYDROcod/ACETAM 5/325 [Taylor 5/325] 1 ea PO Q6H PRN #10 tablet PRN Reason: Pain Comments: We did redo a CT scan today since her pain has been worse over the past recent days. The ultrasound from yesterday had some artifact due to the mesh and the location and they could not say for sure if there was any recurrent hernia or not. The CT scan we did today in the position that it is taken with you lying down, does not show any hernia or dislodgment of the mesh. Certainly standing up and getting up with muscle use of the abdomen can cause some stretching of the scar tissue in the area of the previous surgery and mesh. There could also be some pushing out of the abdominal wall due to thin muscles in the area. There is not an obvious recurrent hernia however. There is a fair amount of stool in the colon on the CT scan (constipation). This will put an added pressure onto the adhesions and scar tissue in the surgical area and cause it to hurt as well. Decreasing inflammation in the area and also decreasing the constipation will help towards making this better. I would suggest using some of the ibuprofen/Advil that you have at home 2-3 vyro-jxe-ywdrrwv tablets twice daily for the next week with food. Add acetaminophen/Tylenol 500 to 650 mg 4 times daily for the next week as well. I wrote for a stronger pain medicine, hydrocodone, to use if needed for worse pain at times. Use this only if needed and with the counterproductive aspect is that it can be constipating. To help with the constipation in the short-term, I would suggest a laxative called lactulose that usually works pretty well. The you can use this dose every 4-6 hours for the first day or 2 until you are having good stool output. At that point then just go with the half to full dose MiraLAX daily for the next several weeks and add docusate stool softener if needed as well. Stay well- hydrated. Follow-up with your primary care if not improved well over the next few days. It might be useful to make an appointment with the surgery office and follow-up to have a discussion about the pain you are having in that area. I do not believe it is a surgical answer or solution but they may have advice on how to help it hurt less in addition to anti-inflammatories and stool softeners. I sent your prescriptions to your preferred pharmacy. Do not take your usual medications at the same time as the laxatives as it would affect absorption of your medicines and not get the fact you need from them. Use the laxatives and stool softeners at a time in between your usual medications. I am prescribing a short course of narcotic pain medication for you. These are potentially dangerous and addictive medications that should be used carefully. These medications may constipate you. Take an itvm-ppb-dpgykke stool softener such as docusate twice daily with plenty of water while taking these medications. If you go 24 hours without a bowel movement, take mvtf-xtj-[id number] MiraLAX, per package instructions. Do not drink or drive while taking these medications. If you received narcotic or sedating medications while in the emergency department do not drive for 24 hours. Store this medication in a safe, secure place and out of reach of children. It is a violation of federal law to give or sell this medication to another person or to use in a manner other than prescribed. The ED will not refill narcotic prescriptions, including prescriptions lost or stolen. You can dispose of unwanted medications at the [facility]'s office or at several pharmacies such as [email or web address]. Forms: PCP List Discharge Date/Time: 03/28/23 04:49
[2023-03-28 02:12] VITALS: BP 130/87
[2023-03-28 02:26] LABS: BASOPHILS % (AUTO) 0.3 %; EOSINOPHILS # (AUTO) 0.2 10^3/uL (0.0-0.7); EOSINOPHILS % (AUTO) 2.9 %; HCT - HEMATOCRIT 39.7 % (42.0-52.0); HGB - HEMOGLOBIN 13.1 g/dL (14.0-18.0); LYMPHOCYTES # (AUTO) 0.9 10^3/uL (1.5-3.5); LYMPHOCYTES % (AUTO) 15.9 %; MEAN CORPUSCULAR HEMOGLOBIN 32.3 pg (27.0-31.0); MEAN CORPUSCULAR VOLUME 97.8 fL (80.0-94.0); MEAN PLATELET VOLUME 10.1 fL (7.4-11.4); MONOCYTES # (AUTO) 0.7 10^3/uL (0.0-1.0); MONOCYTES % (AUTO) 11.2 %; NEUTROPHILS # (AUTO) 4.1 10^3/uL (1.5-6.6); NEUTROPHILS % (AUTO) 69.4 %; PLT - PLATELET COUNT 176 10^3/uL (130-450); RED BLOOD COUNT 4.06 10^6/uL (4.70-6.10); RED CELL DISTRIBUTION WIDTH 12.4 % (12.0-15.0); WHITE BLOOD COUNT 5.9 x10^3/uL (4.8-10.8)
[2023-03-28] MEDS: KETOROLAC 15 MG/ML VIAL IVP STA (02:29)
[2023-03-28] MEDS: HYDROmorphone 0.5 MG/0.5 ML SYRINGE IVP STA (02:31)
[2023-03-28] MEDS: DOCUSATE SODIUM 100 MG CAPSULE PO STA (02:32)
[2023-03-28] MEDS ORDERED: iohexoL-300 100 ML VIAL ONE (02:34)
[2023-03-28 02:41] LABS: ALBUMIN/GLOBULIN RATIO 1.4 (1.0-2.2); BILIRUBIN,TOTAL 0.6 mg/dL (0.2-1.0); CALCIUM 9.1 mg/dL (8.5-10.3); CREATININE 1.3 mg/dL (0.6-1.3); TOTAL PROTEIN 6.8 g/dL (6.4-8.9)
[2023-03-28] MEDS: SODIUM CHLORIDE 0.9% 1,000 ML IV STA (02:46)
[2023-03-28] MEDS: iohexoL-300 100 ML VIAL IVP ONE (03:23)
[2023-03-28] MEDS: LACTULOSE 10 GM /15 ML UDC PO STA (04:09)
[2023-03-28 04:55] VITALS: O2SAT 96
--- NOTE | 2023-03-28 09:13 | CT Report ---
PROCEDURE: Abdomen/Pelvis W INDICATIONS: RLQ abd pain, ? recurrent hernia CONTRAST: OMNI 300, 100mls TECHNIQUE: After the administration of intravenous contrast, a CT scan of the abdomen and pelvis was performed. Images were recorded and evaluated at appropriate window settings. Reformats: coronal and sagittal. F or radiation dose reduction, the following was used: automated exposure control, adjustment of mA and /or kV according to patient size. COMPARISON: CT of abdomen and pelvis, 03/08. . Lumbar spine x-ray, 12/21/2016. FINDINGS: Image quality: Excellent. Lung bases and heart: Unremarkable. There is a small hiatal hernia. Liver: No solid mass. Gallbladder and biliary tree: The gallbladder is normal. No biliary dilation. Spleen: No splenomegaly. Pancreas: No pancreatic ductal dilation. Adrenals: No adrenal nodule. Kidneys and ureters: No hydronephrosis. No renal cystic lesion which requires follow up. No solid mas s. There multiple renal cysts bilaterally. No renal stones or hydronephrosis. Bowel and peritoneum: No bowel distension. No pathologic free fluid. Diverticulosis without acute div erticulitis. There is a large amount stool in colon. Appendix is normal. Lymph nodes: No central or retroperitoneal adenopathy. Vessels: No infrarenal aortic aneurysm. There are severe aortic calcifications. PELVIS Reproductive organs: Unremarkable. Bladder: No abnormal wall thickening, accounting for underdistention. Pelvic lymph nodes: No pelvic adenopathy by size criteria. Bones: No aggressive osseous abnormality. There is moderate to severe chronic compression fracture of T12, unchanged from 03/12/2023. Mild levoscoliosis. Severe degenerative changes in lumbar spine. Other: No significant ventral or inguinal hernia. IMPRESSION: 1. Normal appendix. A cause for right lower quadrant pain is not definitively identified. 2. Diverticulosis without acute diverticulitis. 3. A large amount of stool in colon. 4. Stable fracture T12. Findings are concordant with preliminary interpretation provided by [facility]. Reviewed by: Milton Pepper MD on 03/28/2023 9:12 AM PST Approved by: Milton Pepper MD on 03/28/2023 9:12 AM PST Station ID: [id number]
== END 2023-03-28 04:49 | disposition home or self-care (01) ==
LOC: ED 01:52
DX: K59.00 Constipation, unspecified (principal); I10 Essential (primary) hypertension
CPT/HCPCS: 36415; 74177; 80053; 83690; 85025; 96374; 96375; 99284; A9270; J1170; Q9967

== ENCOUNTER 2023-04-01 10:36 | Emergency (ER) | payer MEDICARE ==
[2023-04-01 11:02] VITALS: BP 124/58; O2SAT 92
[2023-04-01] MEDS ORDERED: LIDOCAINE PATCH 4% TOP STA (11:08)
--- NOTE | 2023-04-01 11:08 | ED Physician Documentation ---
PD HPI BACK PAIN - Stated complaint Stated Complaint: BACK PX - Chief complaint Chief Complaint: Back Pain - History obtained from History obtained from: Patient - Additional information Additional information: 82-year-old male presents from home by private vehicle for lumbar back pain x 4 days. Patient states that he was trying to sit in a rolling chair and missed, falling on his bottom. He has had aching lumbar back pain since then. He is ambulatory with a cane at baseline. He has been taking Tylenol and Motrin without significant relief of his pain. Denies bowel or bladder incontinence, denies saddle anesthesia. Review of Systems Constitutional: denies: Fever, Chills Respiratory: denies: Dyspnea, Cough, Wheezing GI: denies: Abdominal Pain, Nausea, Vomiting, Constipation, Diarrhea : denies: Dysuria, Frequency, Hesitancy Musculoskeletal: reports: Back pain. denies: Neck pain, Extremity pain, Joint pain, Extremity swelling PD PAST MEDICAL HISTORY - Past Medical History Past Medical History: Yes Cardiovascular: Hypertension, Valve disorder Respiratory: None Neuro: Parkinson's, Tremors, Other Endocrine/Autoimmune: HyPOthyroidism GI: GERD, GI bleed, Colon polyps PREP PERSON: None : Incontinence HEENT: Chronic hearing loss Psych: Depression, Anxiety, Other Musculoskeletal: Osteoarthritis, Fatigue, Chronic back pain, Other Derm: None - Past Surgical History Past Surgical History: Yes General: Colonoscopy, EGD Ortho: Knee replacement Cardiovascular: Valve replacement Neuro: Other Derm: Other - Present Medications Home Medications: Ambulatory Orders Medication Instructions Recorded Confirmed Amlodipine Besylate 2.5 mg PO BID 12/17/17 04/01/23 Carbidopa/Levodopa [Carbidopa-Levo 1 tab PO BID 12/17/17 04/01/23 ER 50-200 Tab] Carbidopa/Levodopa 2 tab PO Q4HR 12/17/17 04/01/23 [Carbidopa-Levodopa 25-100 Tab] Cholecalciferol (Vitamin D3) 5,000 units PO 1000 12/17/17 04/01/23 [Vitamin D3] Cyanocobalamin (Vitamin B-12) 1,000 mcg PO 1000 12/17/17 04/01/23 [Vitamin B-12 (500 mcg sublingual)] Levothyroxine Sodium 50 mcg PO 1000 12/17/17 04/01/23 Losartan Potassium 50 mg PO 2200 12/17/17 04/01/23 Multivitamin [Theragran] 1 tab PO 1000 12/17/17 04/01/23 Ropinirole HCl [Ropinirole ER] 8 mg PO 2200 12/17/17 04/01/23 LORazepam [Ativan] 0.5 mg PO BID PRN #12 tablet 10/23/21 04/01/23 Mirabegron [Myrbetriq] 50 mg ORAL DAILY 10/11/22 04/01/23 Carbidopa/Levodopa ER 50/200 2 tab PO HS 10/29/22 04/01/23 [Sinemet Cr 50 mg/200 mg] Entacapone [Comtan] 1 tab PO QID 10/29/22 04/01/23 Acetaminophen [Tylenol] 650 mg PO Q6HR 5 Days #50 tab 10/30/22 04/01/23 Ibuprofen 600 mg PO TID 5 Days #50 tablet 10/30/22 04/01/23 Docusate Sodium 100Mg Capsule 100 mg PO DAILY #20 cap 03/28/23 04/01/23 [Colace 100Mg Capsule] - Allergies Allergies/Adverse Reactions: Allergies Allergy/AdvReac Type Severity Reaction Status Date / Time No Known Drug Allergies Allergy Verified 04/01/23 10:55 - Social History Does the pt smoke?: No Smoking Status: Never smoker Does the pt drink ETOH?: No Does the pt have substance abuse?: No - Immunizations Immunizations are current?: Yes - POLST Patient has POLST: No POLST Status: Full Code PD ED PE NORMAL - Vitals Vital signs reviewed: Yes - General General: Alert and oriented X 3, No acute distress, Well developed/nourished - Cardiac Cardiac: RRR, Strong equal pulses - Respiratory Respiratory: No respiratory distress, Clear bilaterally - Abdomen Abdomen: Soft, Non tender, Non distended - Back Back: No CVA TTP, Other (generalized lumbar tenderness to palpation) - Derm Derm: Normal color, Warm and dry, No rash - Neuro Neuro: Alert and oriented X 3, parts person 2-12 intact, No motor deficit, Normal speech Results - Vitals Vitals: Vital Signs - 24 hr 04/01/23 10:51 Temperature 36.4 C L Heart Rate 86 Respiratory 20 Rate Blood Pressure 124/58 L O2 Saturation 92 Oxygen O2 Source Room air PD Medical Decision Making - ED course Complexity details: reviewed old records, reviewed results, re-evaluated patient, considered differential, d/w patient, d/w family ED course: Lumbar back pain after slipping and falling at home. No step-offs, no neurologic deficits. Patient is ambulatory at his baseline with a cane. CT of the lumbar spine was obtained that showed chronic compression fractures but no acute deformity. With patient's propensity to fall I do not believe it is advisable to discharge patient with any sedating medications. Patient and family were informed of CT results at bedside. I counseled on the importance of continuing to use kopx-ydg-sagasur pain medications, patient may also apply heat or ice as needed for comfort, and I also recommended numbing patches which can be found [id number]. ED return precautions discussed at bedside. Departure - Departure Disposition: 01 Home, Self Care Clinical Impression: Lumbar back pain Condition: Stable Instructions: ED Back Care Tips Comments: Continue to alternate tylenol and motrin as needed for pain. I also recommend applying ice and heat for comfort. You may also buy lidocaine patches for pain control. These can be found over the counter at most pharmacies. Discharge Date/Time: 04/01/23 13:04
--- NOTE | 2023-04-01 12:44 | CT Report ---
PROCEDURE: Lumbar Spine WO INDICATIONS: GLF, LOWER LUMBAR PAIN TECHNIQUE: Noncontrast 3 mm thick sections acquired from the T12 level to the sacrum. Sagittal and coronal refo rmats were constructed. For radiation dose reduction, the following was used: automated exposure co ntrol, adjustment of mA and/or kV according to patient size. COMPARISON: CT March 12, 2023 FINDINGS: Image quality: Excellent. Bones: Mild apex left curvature of the lumbar spine. No acute vertebral body compression fractures. W edge deformity of T12 with 50% height loss favored to be chronic given adjacent vacuum disc phenomeno n. Subacute fracture of the left 12th rib. No suspicious lytic or blastic bony lesions. Central spin al caliber is of normal overall caliber. No pars defects. T12-L1: Normal in appearance. L1-L2: Normal in appearance. L2-L3: No osseous spinal canal narrowing. There is mild bilateral osseous foraminal narrowing. L3-L4: There is no spinal canal bony narrowing. There is moderate right and severe left foraminal n arrowing. L4-L5: No bony spinal canal narrowing. There is mild right and moderate left foraminal narrowing. L5-S1: There is no bony spinal canal narrowing. There is moderate right osseous foraminal narrowing . Soft tissues: No retroperitoneal masses or hematomas. Visualized aorta is normal in caliber. Exoph ytic renal cyst. IMPRESSION: 1.No acute fracture. 2.Chronic fractures of T12 and the left 12th rib. 3.Multilevel degenerative changes with disc height loss and osteophyte formation most prominent at L3 -L4. Reviewed by: Hugo Felipe MD on 04/01/2023 11:43 AM [facility] Approved by: Hugo Felipe MD on 04/01/2023 11:43 AM [facility] Station ID: [id number]
== END 2023-04-01 13:04 | disposition home or self-care (01) ==
LOC: ED 10:36
DX: M54.50 Low back pain, unspecified (principal); Z91.81 History of falling
CPT/HCPCS: 72131; 99283; 99284; A9270

== ENCOUNTER 2023-05-31 07:39 | Outpatient (CLI) | payer MEDICARE | END 2023-05-31 07:40 | disposition critical access hospital (66) | LOC: EMS 07:39 | DX: R53.1 Weakness (principal); R06.02 Shortness of breath; R68.83 Chills (without fever) | CPT/HCPCS: A0425; A0429 ==

== ENCOUNTER 2023-05-31 07:52 | Emergency (ER) | payer MEDICARE ==
[2023-05-31 08:26] LABS: BASOPHILS % (AUTO) 0.7 %; EOSINOPHILS # (AUTO) 0.2 10^3/uL (0.0-0.7); EOSINOPHILS % (AUTO) 3.7 %; HCT - HEMATOCRIT 37.8 % (42.0-52.0); HGB - HEMOGLOBIN 12.6 g/dL (14.0-18.0); LYMPHOCYTES # (AUTO) 0.7 10^3/uL (1.5-3.5); LYMPHOCYTES % (AUTO) 11.7 %; MEAN CORPUSCULAR HEMOGLOBIN 32.2 pg (27.0-31.0); MEAN CORPUSCULAR HGB CONC 33.3 g/dL (32.0-36.0); MEAN CORPUSCULAR VOLUME 96.7 fL (80.0-94.0); MEAN PLATELET VOLUME 9.8 fL (7.4-11.4); MONOCYTES # (AUTO) 0.5 10^3/uL (0.0-1.0); NEUTROPHILS # (AUTO) 4.4 10^3/uL (1.5-6.6); NEUTROPHILS % (AUTO) 74.7 %; PLT - PLATELET COUNT 175 10^3/uL (130-450); RED BLOOD COUNT 3.91 10^6/uL (4.70-6.10); RED CELL DISTRIBUTION WIDTH 12.5 % (12.0-15.0); WHITE BLOOD COUNT 5.9 x10^3/uL (4.8-10.8)
[2023-05-31] MEDS: SODIUM CHLORIDE 0.9% 1,000 ML IV STA ×2 (08:30→10:29)
[2023-05-31 08:48] LABS: ALBUMIN/GLOBULIN RATIO 1.4 (1.0-2.2); ALKALINE PHOSPHATASE 50 IU/L (42-121); ALT ALANINE AMINOTRANSFERASE 3 IU/L (10-60); AST ASPARTATE AMINOTRANSFERASE 17 IU/L (10-42); BILIRUBIN,TOTAL 0.6 mg/dL (0.2-1.0); BUN - BLOOD UREA NITROGEN 22 mg/dL (6-20); CALCIUM 9.1 mg/dL (8.5-10.3); CARBON DIOXIDE - CO2 27 mmol/L (21-32); CHLORIDE 106 mmol/L (101-111); CREATININE 1.2 mg/dL (0.6-1.3); GFR - MDRD 58 (>89); GLUCOSE 109 mg/dL (74-104); SODIUM 139 mmol/L (135-145); TOTAL PROTEIN 6.8 g/dL (6.4-8.9)
[2023-05-31 08:53] LABS: LIPASE < 10 U/L (11-82)
--- NOTE | 2023-05-31 09:17 | ED Physician Documentation ---
History of Present Illness - Stated complaint Stated Complaint: GEN WEAKNESS - Chief complaint Chief Complaint: General - History obtained from History obtained from: Patient, EMS - Additonal information Additional information: Patient comes to the emergency department chief complaint of generalized weakness. He has a history of Parkinson's disease and states that he has not really been ill with anything specific recently. He states that he is just been weak for last about the last day and a half and he does not know why. He normally walks with a cane at home although he states that he has been using his walker a little more often lately. He denies any nausea or vomiting but states he has had some "regurgitation" of stomach products when he lays down. He states that is not everything in his stomach but just a little bit. He denies any change in his bowel movements. He does note that his appetite has been decreased for quite a while and feels that he is probably not drinking enough also. He states his mouth and throat have been very dry. No fevers or chills. No pain or burning with urination. No cough, chest pain, or shortness of breath. No recent change in meds. The patient states he is always bradycardic. 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 HEENT: Chronic hearing loss Psych: Depression, Anxiety, Other Musculoskeletal: Osteoarthritis, Fatigue, Chronic back pain, Other Derm: None - Past Surgical History Past Surgical History: Yes General: Colonoscopy, EGD Ortho: Knee replacement Cardiovascular: Valve replacement Neuro: Other Derm: Other - Present Medications Home Medications: Ambulatory Orders Medication Instructions Recorded Confirmed Amlodipine Besylate 2.5 mg PO BID 12/17/17 05/31/23 Carbidopa/Levodopa [Carbidopa-Levo 1 tab PO BID 12/17/17 05/31/23 ER 50-200 Tab] Carbidopa/Levodopa 2 tab PO Q4HR 12/17/17 05/31/23 [Carbidopa-Levodopa 25-100 Tab] Cholecalciferol (Vitamin D3) 5,000 units PO 1000 12/17/17 04/01/23 [Vitamin D3] Cyanocobalamin (Vitamin B-12) 1,000 mcg PO 1000 12/17/17 04/01/23 [Vitamin B-12 (500 mcg sublingual)] Levothyroxine Sodium 50 mcg PO 1000 12/17/17 05/31/23 Losartan Potassium 50 mg PO 219912/17/17 05/31/23 Multivitamin [Theragran] 1 tab PO 1000 12/17/17 05/31/23 Ropinirole HCl [Ropinirole ER] 8 mg PO 219912/17/17 05/31/23 LORazepam [Ativan] 0.5 mg PO BID PRN #12 tablet 10/23/21 04/01/23 Mirabegron [Myrbetriq] 50 mg ORAL DAILY 10/11/22 05/31/23 Carbidopa/Levodopa ER 50/200 2 tab PO HS 10/29/22 05/31/23 [Sinemet Cr 50 mg/200 mg] Entacapone [Comtan] 1 tab PO QID 10/29/22 05/31/23 Acetaminophen [Tylenol] 650 mg PO Q6HR 5 Days #50 tab 10/30/22 04/01/23 Ibuprofen 600 mg PO TID 5 Days #50 tablet 10/30/22 04/01/23 Docusate Sodium 100Mg Capsule 100 mg PO DAILY #20 cap 03/28/23 04/01/23 [Colace 100Mg Capsule] - Allergies Allergies/Adverse Reactions: Allergies Allergy/AdvReac Type Severity Reaction Status Date / Time No Known Drug Allergies Allergy Verified 05/31/23 08:09 - Social History Does the pt smoke?: No Smoking Status: Never smoker Does the pt drink ETOH?: No Does the pt have substance abuse?: No - Immunizations Immunizations are current?: Yes - POLST Patient has POLST: No POLST Status: Full Code PD ED PE NORMAL - Vitals Vital signs reviewed: Yes - General General: Alert and oriented X 3, No acute distress, Well developed/nourished - HEENT HEENT: Atraumatic, PERRL, EOMI, Moist mucous membranes - Neck Neck: Supple, no meningeal sign - Cardiac Cardiac: RRR, No murmur, Strong equal pulses - Respiratory Respiratory: No respiratory distress, Clear bilaterally - Abdomen Abdomen: Soft, Non tender, Non distended - Derm Derm: Normal color, Warm and dry, No rash - Extremities Extremities: No deformity - Neuro Neuro: Other (Alert, grossly intact.) - Psych Psych: Normal mood, Normal affect Results - Vitals Vitals: Oxygen O2 Source Room air - Labs Labs: Laboratory Tests 05/31/23 05/31/23 05/31/23 08:21 08:21 09:06 WBC 5.9 RBC 3.91 L Hgb 12.6 L Hct 37.8 L MCV 96.7 H MCH 32.2 H MCHC 33.3 RDW 12.5 Plt Count 175 MPV 9.8 Neut # (Auto) 4.4 Lymph # (Auto) 0.7 L [place] # (Auto) 0.5 Eos # (Auto) 0.2 Baso # (Auto) 0.0 Absolute Nucleated RBC 0.00 Nucleated RBC % 0.0 Sodium 139 Potassium 4.0 Chloride 106 Carbon Dioxide 27 Anion Gap 6.0 BUN 22 H Creatinine 1.2 Estimated GFR (MDRD) 58 L Glucose 109 H Calcium 9.1 Total Bilirubin 0.6 AST 17 ALT 3 L Alkaline Phosphatase 50 Total Protein 6.8 Albumin 4.0 Globulin 2.8 Albumin/Globulin Ratio 1.4 Lipase < 10 L Urine Color Urine Clarity Urine pH Ur Specific [place] Urine Protein Urine Glucose (UA) Urine Ketones Urine Occult Blood Urine Nitrite Urine Bilirubin Urine Urobilinogen Ur Leukocyte Esterase Ur Microscopic Review Urine Culture Comments Nasal Adenovirus (PCR) NOT DETECTED Nasal B. parapertussis DNA (PCR) NOT DETECTED Nasal Coronavir 229E PCR NOT DETECTED Nasal Coronavir HKU1 PCR NOT DETECTED Nasal Coronavir NL63 PCR NOT DETECTED Nasal Coronavir OC43 PCR NOT DETECTED Nasal Enterovir/Rhinovir PCR NOT DETECTED Nasal Influenza B PCR NOT DETECTED Nasal Influenza A PCR NOT DETECTED Nasal Parainfluen 1 PCR NOT DETECTED Nasal Parainfluen 2 PCR NOT DETECTED Nasal Parainfluen 3 PCR NOT DETECTED Nasal Parainfluen 4 PCR NOT DETECTED Nasal RSV (PCR) NOT DETECTED Nasal B.pertussis DNA PCR NOT DETECTED Nasal C.pneumoniae (PCR) NOT DETECTED [place] Human Metapneumo PCR NOT DETECTED Nasal M.pneumoniae (PCR) NOT DETECTED Nasal SARS-CoV-2 (PCR) NOT DETECTED 05/31/23 10:59 WBC RBC Hgb Hct MCV MCH MCHC RDW Plt Count MPV Neut # (Auto) Lymph # (Auto) [place] # (Auto) Eos # (Auto) Baso # (Auto) Absolute Nucleated RBC Nucleated RBC % Sodium Potassium Chloride Carbon Dioxide Anion Gap BUN Creatinine Estimated GFR (MDRD) Glucose Calcium Total Bilirubin AST ALT Alkaline Phosphatase Total Protein Albumin Globulin Albumin/Globulin Ratio Lipase Urine Color YELLOW Urine Clarity CLEAR Urine pH 6.0 Ur Specific [place] 1.025 Urine Protein NEGATIVE Urine Glucose (UA) NEGATIVE Urine Ketones TRACE Urine Occult Blood NEGATIVE Urine Nitrite NEGATIVE Urine Bilirubin NEGATIVE Urine Urobilinogen 0.2 (NORMAL) Ur Leukocyte Esterase NEGATIVE Ur Microscopic Review NOT INDICATED Urine Culture Comments NOT INDICATED Nasal Adenovirus (PCR) Nasal B. parapertussis DNA (PCR) Nasal Coronavir 229E PCR Nasal Coronavir HKU1 PCR Nasal Coronavir NL63 PCR Nasal Coronavir OC43 PCR Nasal Enterovir/Rhinovir PCR Nasal Influenza B PCR Nasal Influenza A PCR Nasal Parainfluen 1 PCR Nasal Parainfluen 2 PCR Nasal Parainfluen 3 PCR Nasal Parainfluen 4 PCR Nasal RSV (PCR) Nasal B.pertussis DNA PCR Nasal C.pneumoniae (PCR) [place] Human Metapneumo PCR Nasal M.pneumoniae (PCR) Nasal SARS-CoV-2 (PCR) PD Medical Decision Making - ED course Complexity details: reviewed results, re-evaluated patient, considered differential, d/w patient ED course: The patient was worked up with laboratory studies and urinalysis and given a liter of normal saline. His entire work-up was unremarkable. He was ambulatory without difficulty in the ED, and I felt he was stable for d/c home. No emergent condition has been identified to explain his heightened sense of fatigue lately. We have discussed the need for follow-up and the usual indications for return. Departure - Departure Disposition: 01 Home, Self Care Clinical Impression: Muscle weakness, Dehydration Parkinson disease Qualifiers: Dyskinesia presence: unspecified whether dyskinesia Fluctuating manifestations: unspecified whether manifestations fluctuate Qualified Code(s): G20.A1 - Parkinson's disease without dyskinesia, without mention of fluctuations Condition: Stable Instructions: Parkinson Disease Common Sx, ED Dehydration, ED Weakness UKO Comments: Your laboratory studies overall look good. You were treated with a liter of IV fluid and walked very well in the emergency department. You most likely were somewhat dehydrated and on top of that, you have Parkinson's disease which can cause fluctuating weakness. Beyond that, there is no clear source of weakness and no evidence of an emergent condition at this time. Please drink plenty of fluids at home and follow-up with your primary doctor. Forms: PCP List Discharge Date/Time: 05/31/23 13:28
[2023-05-31 10:21] LABS: B. PARAPERTUSSIS- RESP PCR PAN NOT DETECTED; B. PERTUSSIS- RESP PCR PANEL NOT DETECTED; C. PNEUMONIAE- RESP PCR PANEL NOT DETECTED; CORONAVIRUS 229E-RESP PCR NOT DETECTED; CORONAVIRUS HKU1-RESP PCR NOT DETECTED; CORONAVIRUS NL63-RESP PCR NOT DETECTED; CORONAVIRUS OC43-RESP PCR NOT DETECTED; HUMAN METAPNEUMOVIRUS NOT DETECTED; INFLUENZA A- RESP PCR PANEL NOT DETECTED; INFLUENZA B - RESP PCR PANEL NOT DETECTED; M. PNEUMONIAE- RESP PCR PANEL NOT DETECTED; PARAINFLUENZA VIRUS 1 NOT DETECTED; PARAINFLUENZA VIRUS 2 NOT DETECTED; PARAINFLUENZA VIRUS 3 NOT DETECTED; PARAINFLUENZA VIRUS 4 NOT DETECTED; RHINOVIRUS/ENTEROVIRUS NOT DETECTED; RSV- RESP PCR PANEL NOT DETECTED; SARS-CoV-2 -RESP PCR PANEL NOT DETECTED
[2023-05-31 11:04] LABS: BILIRUBIN,URINE NEGATIVE (NEGATIVE); GLUCOSE, URINE (UA) NEGATIVE (NEGATIVE); KETONES,URINE (UA) TRACE mg/dL (NEGATIVE); LEUKOCYTE ESTERASE, URINE NEGATIVE (NEGATIVE); NITRITE,URINE NEGATIVE (NEGATIVE); OCCULT BLOOD,URINE NEGATIVE (NEGATIVE); PROTEIN,URINE NEGATIVE (NEGATIVE); UROBILINOGEN,URINE 0.2 (NORMAL) E.U./dL (NORMAL)
[2023-05-31 11:05] LABS: CLARITY,URINE CLEAR (CLEAR)
[2023-05-31] MEDS: CARBIDOPA/LEVODOPA ER 50 MG/200 MG TABLET PO STA (12:16)
[2023-05-31 13:32] VITALS: BP 150/94; O2SAT 97
== END 2023-05-31 13:28 | disposition home or self-care (01) ==
LOC: EDUNIT# → ED 07:52
DX: E86.0 Dehydration (principal); G20.A1 Parkinson's disease without dyskinesia, without mention of fluctuations
CPT/HCPCS: 36415; 80053; 81003; 83690; 85025; 87633; 96360; 96361; 99283; A9270; 81001; 87086

== ENCOUNTER 2023-06-05 10:45 | Emergency (ER) | payer MEDICARE ==
[2023-06-05 11:24] VITALS: O2SAT 98
--- NOTE | 2023-06-05 11:32 | ED Physician Documentation ---
History of Present Illness - Stated complaint Stated Complaint: BILAT LEG WOUNDS - Chief complaint Chief Complaint: General - Additonal information Additional information: 82-year-old male with Parkinson's presents emergency department for bilateral lower extremity wounds and pain. Patient says that he was seen for something similar to this about a year ago and was started on mupirocin and Keflex and it helped fully resolve the symptoms he cannot entirely remember what they diagnosed him with and is not entirely positive that these are the antibiotics he was started on but presents back to the emergency department for weeping, erythema, increased pain mostly to the right leg. 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 HEENT: Chronic hearing loss Psych: Depression, Anxiety, Other Musculoskeletal: Osteoarthritis, Fatigue, Chronic back pain, Other Derm: None - Past Surgical History Past Surgical History: Yes General: Colonoscopy, EGD Ortho: Knee replacement Cardiovascular: Valve replacement Neuro: Other Derm: Other - Present Medications Home Medications: Ambulatory Orders Medication Instructions Recorded Confirmed Amlodipine Besylate 2.5 mg PO BID 12/17/17 05/31/23 Carbidopa/Levodopa [Carbidopa-Levo 1 tab PO BID 12/17/17 05/31/23 ER 50-200 Tab] Carbidopa/Levodopa 2 tab PO Q4HR 12/17/17 05/31/23 [Carbidopa-Levodopa 25-100 Tab] Cholecalciferol (Vitamin D3) 5,000 units PO 1000 12/17/17 04/01/23 [Vitamin D3] Cyanocobalamin (Vitamin B-12) 1,000 [place] 99912/17/17 04/01/23 [Vitamin B-12 (500 mcg sublingual)] Levothyroxine Sodium [place] [address]/17/17 05/31/23 Losartan Potassium 50 mg PO 219912/17/17 05/31/23 Multivitamin [Theragran] 1 tab PO 1000 12/17/17 05/31/23 Ropinirole HCl [Ropinirole ER] 8 mg PO 219912/17/17 05/31/23 LORazepam [Ativan] 0.5 mg PO BID PRN #12 tablet 10/23/21 04/01/23 Mirabegron [Myrbetriq] 50 mg ORAL DAILY 10/11/22 05/31/23 Carbidopa/Levodopa ER 50/200 2 tab PO HS 10/29/22 05/31/23 [Sinemet Cr 50 mg/200 mg] Entacapone [Comtan] 1 tab PO QID 10/29/22 05/31/23 Acetaminophen [Tylenol] 650 mg PO Q6HR 5 Days #50 tab 10/30/22 04/01/23 Ibuprofen 600 mg PO TID 5 Days #50 tablet 10/30/22 04/01/23 Docusate Sodium 100Mg Capsule 100 mg PO DAILY #20 cap 03/28/23 04/01/23 [Colace 100Mg Capsule] cephALEXin [Keflex] 500 mg PO Q6H 5 Days #28 cap 06/05/23 - Allergies Allergies/Adverse Reactions: Allergies Allergy/AdvReac Type Severity Reaction Status Date / Time No Known Drug Allergies Allergy Verified 06/05/23 11:14 - Social History Does the pt smoke?: No Smoking Status: Never smoker Does the pt drink ETOH?: No Does the pt have substance abuse?: No - Immunizations Immunizations are current?: Yes - POLST Patient has POLST: No POLST Status: Full Code PD ED PE NORMAL - Vitals Vital signs reviewed: Yes - General General: Alert and oriented X 3, No acute distress, Well developed/nourished, Other - Derm Derm: Other (Right lower extremity erythema with what appears to be venous insufficiency and serous weeping open wounds to the right cordova x 2.) - Extremities Extremities: Other (1+ bilateral pitting edema) Results - Vitals Vitals: Vital Signs - 24 hr 06/05/23 06/05/23 11:14 12:30 Temperature 36.2 C L Heart Rate 54 L 60 Respiratory 18 12 Rate Blood Pressure 120/60 120/76 O2 Saturation 98 98 Oxygen O2 Source Room air PD Medical Decision Making - ED course ED course: This patient presents with initial presentation of local erythema, warmth, swelling concerning for cellulitis to the right lower extremity. Sensitivity /pain to light touch around the erythematous area. No lymphangitic spread visible and no concerns for abscess. Low concern for osteomyelitis or DVT. No immune compromise, bullae, pain out of proportion, or rapid progression concerning for necrotizing fasciitis. 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 Return precautions given to patient all questions answered safe for discharge. Departure - Departure Disposition: Home, Self Care Clinical Impression: Cellulitis of right leg Instructions: Cellulitis Dc Prescriptions: cephALEXin [Keflex] 500 mg PO Q6H 5 Days #28 cap Comments: I believe that you are experiencing something called cellulitis on your right lower extremity. I also believe that you have some sort of venous insufficiency that could be causing the bilateral lower extremity swelling and weeping that you are experiencing. 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 We are starting you on an antibiotic called Keflex you will take this 4 times a day, every 6 hours for the next 5 days. Please come back to the emergency department if starting develop any fevers chills nausea vomiting or any other concerning symptoms. Forms: PCP List Discharge Date/Time: 06/05/23 12:31
[2023-06-05] MEDS: cephALEXin 250 MG CAPSULE PO STA (12:12)
[2023-06-05 12:34] VITALS: BP 120/76
== END 2023-06-05 12:31 | disposition home or self-care (01) ==
LOC: ED 10:45
DX: L03.115 Cellulitis of right lower limb (principal)
CPT/HCPCS: 99282; 99284; A9270

== ENCOUNTER 2023-06-08 13:00 | Outpatient (CLI) | payer MEDICARE ==
[2023-06-08 13:50] LABS: BASOPHILS # (AUTO) 0.1 10^3/uL (0.0-0.1); BASOPHILS % (AUTO) 1.1 %; EOSINOPHILS # (AUTO) 0.2 10^3/uL (0.0-0.7); EOSINOPHILS % (AUTO) 4.9 %; HCT - HEMATOCRIT 34.9 % (42.0-52.0); HGB - HEMOGLOBIN 11.5 g/dL (14.0-18.0); LYMPHOCYTES # (AUTO) 0.7 10^3/uL (1.5-3.5); LYMPHOCYTES % (AUTO) 15.5 %; MEAN CORPUSCULAR HEMOGLOBIN 32.1 pg (27.0-31.0); MEAN CORPUSCULAR VOLUME 97.5 fL (80.0-94.0); MONOCYTES # (AUTO) 0.4 10^3/uL (0.0-1.0); MONOCYTES % (AUTO) 9.4 %; NEUTROPHILS # (AUTO) 3.2 10^3/uL (1.5-6.6); NEUTROPHILS % (AUTO) 68.7 %; PLT - PLATELET COUNT 170 10^3/uL (130-450); RED BLOOD COUNT 3.58 10^6/uL (4.70-6.10); RED CELL DISTRIBUTION WIDTH 12.6 % (12.0-15.0); WHITE BLOOD COUNT 4.7 x10^3/uL (4.8-10.8)
[2023-06-08 14:04] LABS: ALBUMIN 3.8 g/dL (3.2-5.5); ALBUMIN/GLOBULIN RATIO 1.3 (1.0-2.2); ALKALINE PHOSPHATASE 54 IU/L (42-121); ALT ALANINE AMINOTRANSFERASE 3 IU/L (10-60); AST ASPARTATE AMINOTRANSFERASE 18 IU/L (10-42); BILIRUBIN,TOTAL 0.6 mg/dL (0.2-1.0); BUN - BLOOD UREA NITROGEN 22 mg/dL (6-20); CARBON DIOXIDE - CO2 28 mmol/L (21-32); CHLORIDE 106 mmol/L (101-111); CREATININE 1.5 mg/dL (0.6-1.3); CRP - C-REACTIVE PROTEIN < 0.5 mg/dL (<0.5); GFR - MDRD 45 (>89); GLUCOSE 106 mg/dL (74-104); SODIUM 137 mmol/L (135-145); TOTAL PROTEIN 6.7 g/dL (6.4-8.9)
--- NOTE | 2023-06-08 17:18 | XRAY Report ---
PROCEDURE: Ankle 3+V RT INDICATIONS: RIGHT LEG CELLULITIS TECHNIQUE: 3 views of the ankle were acquired. COMPARISON: None. FINDINGS: Bones: Dysplastic appearance of the calcaneus, and Charcot arthropathy. Suspected dystrophic calcifi cation in the expected position of the plantar fascia. No bony erosion. Soft tissues: No tibiotalar joint effusion. Achilles tendon appears normal. IMPRESSION: No bony erosion to suggest acute osteomyelitis. Dysplastic appearance of the calcaneus, with Charcot arthropathy. Reviewed by: Wei Yañez MD on 06/08/2023 5:17 PM PDT Approved by: Wei Yañez MD on 06/08/2023 5:17 PM PDT Station ID: [id number]
== END 2023-06-08 13:01 | disposition home or self-care (01) ==
LOC: LAB 13:00 → DI 13:01
PROVIDERS: ATTEND Registered Nurse
DX: L03.115 Cellulitis of right lower limb (principal); M14.671 Charcot's joint, right ankle and foot
CPT/HCPCS: 36415; 80053; 85025; 86140; 87040

== ENCOUNTER 2023-07-30 01:57 | Outpatient (CLI) | payer MEDICARE | END 2023-07-30 21:59 | disposition EMS.NT | LOC: EMS 01:57 | DX: Z03.89 Encounter for observation for other suspected diseases and conditions ruled out (principal) ==

== ENCOUNTER 2023-08-03 16:04 | Emergency (ER) | payer MEDICARE ==
[2023-08-03 16:20] VITALS: BP 142/73; O2SAT 98
--- NOTE | 2023-08-03 16:31 | ED Physician Documentation ---
History of Present Illness - Stated complaint Stated Complaint: - Chief complaint Chief Complaint: General - Additonal information Additional information: 82-year-old male with Parkinson's here for multiple complaints difficult finding the true chief complaint of patient's emergency visit. Patient originally says that he has been noticing he has been leaning more to the right, his who is his caregiver at home says that he always leans to the right and has been for years now due to his Parkinson's. 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 He then says that he was concern for possible right abdominal hernia surgery acting back up. He had incarcerated hernia in October 2022 and is concerned that maybe he is having hernia issues again he currently denies any pain or swelling of the right hernia currently. Patient also reports that when he stands up he is hearing sloshing in his bladder and more urinary frequency. When asked the if she has any concerns of what brings him into the ER she says no she is just been supportive and bring him here because he was worried originally about hernia but now he does not seem to be as worried about it. 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 HEENT: Chronic hearing loss Psych: Depression, Anxiety, Other Musculoskeletal: Osteoarthritis, Fatigue, Chronic back pain, Other Derm: None - Past Surgical History Past Surgical History: Yes General: Colonoscopy, EGD Ortho: Knee replacement Cardiovascular: Valve replacement Neuro: Other Derm: Other - Present Medications Home Medications: Ambulatory Orders Medication Instructions Recorded Confirmed Amlodipine Besylate 2.5 mg PO BID 12/17/17 05/31/23 Carbidopa/Levodopa [Carbidopa-Levo 1 tab PO BID 12/17/17 05/31/23 ER 50-200 Tab] Carbidopa/Levodopa 2 tab PO Q4HR 12/17/17 05/31/23 [Carbidopa-Levodopa 25-100 Tab] Cholecalciferol (Vitamin D3) 5,000 units PO 1000 12/17/17 04/01/23 [Vitamin D3] Cyanocobalamin (Vitamin B-12) 1,000 mcg PO 1000 12/17/17 04/01/23 [Vitamin B-12 (500 mcg sublingual)] Levothyroxine [place]odium [place] [address]/17/17 05/31/23 Losartan Potassium 50 mg PO 219912/17/17 05/31/23 Multivitamin [Theragran] 1 tab PO 1000 12/17/17 05/31/23 Ropinirole HCl [Ropinirole ER] 8 mg PO 219912/17/17 05/31/23 LORazepam [Ativan] 0.5 mg PO BID PRN #12 tablet 10/23/21 04/01/23 Mirabegron [Myrbetriq] 50 mg ORAL DAILY 10/11/22 05/31/23 Carbidopa/Levodopa ER 50/200 2 tab PO HS 10/29/22 05/31/23 [Sinemet Cr 50 mg/200 mg] Entacapone [Comtan] 1 tab PO QID 10/29/22 05/31/23 Acetaminophen [Tylenol] 650 mg PO Q6HR 5 Days #50 tab 10/30/22 04/01/23 Ibuprofen 600 mg PO TID 5 Days #50 tablet 10/30/22 04/01/23 Docusate Sodium 100Mg Capsule 100 mg PO DAILY #20 cap 03/28/23 04/01/23 [Colace 100Mg Capsule] cephALEXin [Keflex] 500 mg PO Q6H 5 Days #28 cap 06/05/23 - Allergies Allergies/Adverse Reactions: Allergies Allergy/AdvReac Type Severity Reaction Status Date / Time No Known Drug Allergies Allergy Verified 08/03/23 16:16 - Social History Does the pt smoke?: No Smoking Status: Never smoker Does the pt drink ETOH?: No Does the pt have substance abuse?: No - Immunizations Immunizations are current?: Yes - POLST Patient has POLST: No POLST Status: Full Code PD ED PE NORMAL - Vitals Vital signs reviewed: Yes - General General: Alert and oriented X 3, No acute distress, Well developed/nourished - Cardiac Cardiac: RRR - Respiratory Respiratory: No respiratory distress - Abdomen Abdomen: Normal bowel sounds, Soft, Non tender, No organomegaly, Other (No inflammation or swelling of the right groin concerning for incarcerated hernia.) - Back Back: No CVA TTP - Derm Derm: Normal color, Warm and dry, No rash - Neuro Neuro: Alert and oriented X 3, 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, No motor deficit, No sensory deficit, Normal speech Results - Vitals Vitals: Vital Signs - 24 hr 08/03/23 08/03/23 16:07 17:37 Temperature 36.6 C Heart Rate 56 L Respiratory 17 17 Rate Blood Pressure 142/73 H O2 Saturation 98 Oxygen O2 Source Room air - Labs Labs: Laboratory Tests 08/03/23 08/03/23 08/03/23 16:30 16:30 17:07 WBC 6.1 RBC 3.72 L Hgb 11.9 L Hct 35.9 L MCV 96.5 H MCH 32.0 H MCHC 33.1 RDW 12.5 Plt Count 172 MPV 9.9 Neut # (Auto) 4.6 Lymph # (Auto) 0.8 L [place] # (Auto) 0.5 Eos # (Auto) 0.1 Baso # (Auto) 0.0 Absolute Nucleated RBC 0.00 Nucleated RBC % 0.0 Sodium 138 Potassium 4.1 Chloride 106 Carbon Dioxide 25 Anion Gap 7.0 BUN 21 H Creatinine 1.4 H Estimated GFR (MDRD) 49 L Glucose 92 Calcium 9.6 Total Bilirubin 0.8 AST 18 ALT 3 L Alkaline Phosphatase 47 Total Protein 7.1 Albumin 4.2 Globulin 2.9 Albumin/Globulin Ratio 1.4 Lipase < 10 L Urine Color DARK YELLOW Urine Clarity CLEAR Urine pH 6.0 Ur Specific [place] 1.025 Urine Protein NEGATIVE Urine Glucose (UA) NEGATIVE Urine Ketones TRACE Urine Occult Blood NEGATIVE Urine Nitrite NEGATIVE Urine Bilirubin NEGATIVE Urine Urobilinogen 0.2 (NORMAL) Ur Leukocyte Esterase NEGATIVE Ur Microscopic Review NOT INDICATED Urine Culture Comments NOT INDICATED PD Medical Decision Making - ED course ED course: 82-year-old male presents emergency department with multiple complaints. Originally was concern of possible incarcerated hernia, I evaluated the right groin I do not see any obvious signs of right inguinal hernia and certainly no signs of an incarcerated hernia. Patient also was saying that he was e xperiencing some sloshing around of his bladder so we went ahead and did a urinalysis as patient was also concern of increased urinary frequency. Urine is unremarkable no leukocytes or nitrites no other signs symptoms of infection. Patient has a follow-up appointment with his primary care provider coming up as well as his md psychiatry he was advised to not miss his appointments he was given ER return precautions and at this time I believe patient safe for discharge and I do not believe any labs are warranted at this point time. Departure - Departure Disposition: 01 Home, Self Care Clinical Impression: Parkinson disease, Regurgitation of food Instructions: Parkinson Disease Manage, Parkinson Disease Dc Comments: Thank you for trusting us with your care. We have checked her urine for urinary tract infection I am not seeing any acute findings or abnormalities of urine at this point in time that would indicate urinary tract infection. Please help with your primary care provider as scheduled for a possible swallow study and follow-up with your appointment with your provider tomorrow for your left arm wound check. Forms: PCP List Discharge Date/Time: 08/03/23 17:38
[2023-08-03 16:38] LABS: BASOPHILS % (AUTO) 0.7 %; EOSINOPHILS # (AUTO) 0.1 10^3/uL (0.0-0.7); EOSINOPHILS % (AUTO) 2.1 %; HCT - HEMATOCRIT 35.9 % (42.0-52.0); HGB - HEMOGLOBIN 11.9 g/dL (14.0-18.0); LYMPHOCYTES # (AUTO) 0.8 10^3/uL (1.5-3.5); LYMPHOCYTES % (AUTO) 12.4 %; MEAN CORPUSCULAR HGB CONC 33.1 g/dL (32.0-36.0); MEAN CORPUSCULAR VOLUME 96.5 fL (80.0-94.0); MEAN PLATELET VOLUME 9.9 fL (7.4-11.4); MONOCYTES # (AUTO) 0.5 10^3/uL (0.0-1.0); MONOCYTES % (AUTO) 8.6 %; NEUTROPHILS # (AUTO) 4.6 10^3/uL (1.5-6.6); NEUTROPHILS % (AUTO) 75.9 %; PLT - PLATELET COUNT 172 10^3/uL (130-450); RED BLOOD COUNT 3.72 10^6/uL (4.70-6.10); RED CELL DISTRIBUTION WIDTH 12.5 % (12.0-15.0); WHITE BLOOD COUNT 6.1 x10^3/uL (4.8-10.8)
[2023-08-03 16:49] LABS: ALBUMIN 4.2 g/dL (3.2-5.5); ALBUMIN/GLOBULIN RATIO 1.4 (1.0-2.2); ALKALINE PHOSPHATASE 47 IU/L (42-121); ALT ALANINE AMINOTRANSFERASE 3 IU/L (10-60); AST ASPARTATE AMINOTRANSFERASE 18 IU/L (10-42); BILIRUBIN,TOTAL 0.8 mg/dL (0.2-1.0); BUN - BLOOD UREA NITROGEN 21 mg/dL (6-20); CALCIUM 9.6 mg/dL (8.5-10.3); CARBON DIOXIDE - CO2 25 mmol/L (21-32); CHLORIDE 106 mmol/L (101-111); CREATININE 1.4 mg/dL (0.6-1.3); GFR - MDRD 49 (>89); GLUCOSE 92 mg/dL (74-104); LIPASE < 10 U/L (11-82); POTASSIUM 4.1 mmol/L (3.5-4.5); SODIUM 138 mmol/L (135-145); TOTAL PROTEIN 7.1 g/dL (6.4-8.9)
[2023-08-03 17:18] LABS: BILIRUBIN,URINE NEGATIVE (NEGATIVE); GLUCOSE, URINE (UA) NEGATIVE (NEGATIVE); KETONES,URINE (UA) TRACE mg/dL (NEGATIVE); LEUKOCYTE ESTERASE, URINE NEGATIVE (NEGATIVE); NITRITE,URINE NEGATIVE (NEGATIVE); OCCULT BLOOD,URINE NEGATIVE (NEGATIVE); PROTEIN,URINE NEGATIVE (NEGATIVE); UROBILINOGEN,URINE 0.2 (NORMAL) E.U./dL (NORMAL)
[2023-08-03 17:19] LABS: CLARITY,URINE CLEAR (CLEAR)
== END 2023-08-03 17:38 | disposition home or self-care (01) ==
LOC: ED 16:04
DX: G20.A1 Parkinson's disease without dyskinesia, without mention of fluctuations (principal); R11.10 Vomiting, unspecified
CPT/HCPCS: 36415; 80053; 81001; 81003; 83690; 85025; 87086; 99283

== ENCOUNTER 2023-08-13 01:14 | Outpatient (CLI) | payer MEDICARE | END 2023-08-13 23:59 | disposition critical access hospital (66) | LOC: EMS 01:14 | DX: S01.01XA Laceration without foreign body of scalp, initial encounter (principal); R53.1 Weakness; W18.39XA Other fall on same level, initial encounter; Y92.009 Unspecified place in unspecified non-institutional (private) residence as the place of occurrence of the external cause | CPT/HCPCS: A0425; A0429 ==

== ENCOUNTER 2023-08-13 04:33 | Outpatient (CLI) | payer MEDICARE | END 2023-08-13 23:59 | disposition home or self-care (01) | LOC: EMS 04:33 | PROVIDERS: ATTEND Emergency Medicine | DX: R53.1 Weakness (principal); R27.0 Ataxia, unspecified; G20.C Parkinsonism, unspecified; Z74.01 Bed confinement status | CPT/HCPCS: A0425; A0428 ==

== ENCOUNTER 2023-08-19 12:50 | Emergency (ER) | payer MEDICARE ==
[2023-08-19 12:58] VITALS: O2SAT 100
--- NOTE | 2023-08-19 13:13 | ED Physician Documentation ---
History of Present Illness - Stated complaint Stated Complaint: STAPLE REMOVAL - Chief complaint Chief Complaint: General - History obtained from History obtained from: Patient - Additonal information Additional information: 82-year-old male presents for staple removal [place] placed in the scalp 9 days ago after a fall. He has had no drainage, no swelling no tenderness of the area and believes it is healing well. He denies any other concerns today, denies any new falls. He states he is using his walker almost all the time now, uses his cane sometimes. His prior falls he thinks are due to the shuffling gait and his Parkinson's. 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 : Incontinence HEENT: Chronic hearing loss Psych: Depression, Anxiety, Other Musculoskeletal: Osteoarthritis, Chronic back pain, Fatigue, Other Derm: None - Past Surgical History Past Surgical History: Yes General: EGD, Colonoscopy Ortho: Knee replacement Cardiovascular: Valve replacement Neuro: Other Derm: Other - Present Medications Home Medications: Ambulatory Orders Medication Instructions Recorded Confirmed Amlodipine Besylate 2.5 mg PO BID 12/17/17 05/31/23 Carbidopa/Levodopa [Carbidopa-Levo 1 tab PO BID 12/17/17 05/31/23 ER 50-200 Tab] Carbidopa/Levodopa 2 tab PO Q4HR 12/17/17 05/31/23 [Carbidopa-Levodopa 25-100 Tab] Cholecalciferol (Vitamin D3) 5,[place] [address]/17/17 04/01/23 [Vitamin D3] Cyanocobalamin (Vitamin B-12) 1,[place] [address]/17/17 04/01/23 [Vitamin B-12 (500 mcg sublingual)] Levothyrox[place] [address]/17/17 05/31/23 Losartan Potassium 50 mg PO 219912/17/17 05/31/23 Multivitamin [Theragran] [place] [address]/17/17 05/31/23 Ropinirole HCl [Ropinirole ER] 8 mg PO 219912/17/17 05/31/23 LORazepam [Ativan] 0.5 mg PO BID PRN #12 tablet 10/23/21 04/01/23 Mirabegron [Myrbetriq] 50 mg ORAL DAILY 10/11/22 05/31/23 Carbidopa/Levodopa ER 50/200 2 tab PO HS 10/29/22 05/31/23 [Sinemet Cr 50 mg/200 mg] Entacapone [Comtan] 1 tab PO QID 10/29/22 05/31/23 Acetaminophen [Tylenol] 650 mg PO Q6HR 5 Days #50 tab 10/30/22 04/01/23 Ibuprofen 600 mg PO TID 5 Days #50 tablet 10/30/22 04/01/23 Docusate Sodium 100Mg Capsule 100 mg PO DAILY #20 cap 03/28/23 04/01/23 [Colace 100Mg Capsule] cephALEXin [Keflex] 500 mg PO Q6H 5 Days #28 cap 06/05/23 - Allergies Allergies/Adverse Reactions: Allergies Allergy/AdvReac Type Severity Reaction Status Date / Time No Known Drug Allergies Allergy Verified 08/19/23 12:54 - Social History Does the pt smoke?: No Smoking Status: Never smoker Does the pt drink ETOH?: No Does the pt have substance abuse?: No - Immunizations Immunizations are current?: Yes - POLST Patient has POLST: No POLST Status: Full Code PD ED PE NORMAL - Vitals Vital signs reviewed: Yes - General General: Alert and oriented X 3, No acute distress, Well developed/nourished - Derm Derm: Other (There are multiple dry scabs some on the right cheek and forehead area are healing well. He has 6 christian on the left parietal scalp with a well healed scalplaceration. No erythema/drainage/tenderness. ) - Neuro Neuro: Alert and oriented X 3 Eye Opening: Spontaneous Motor: Obeys Commands Verbal: Oriented GCS Score: 15 Results - Vitals Vitals: Vital Signs - 24 hr 08/19/23 12:54 Temperature 36.5 C Heart Rate 60 Respiratory 16 Rate O2 Saturation 100 Oxygen O2 Source Room air Procedures - Suture/staple Removal (location) - Minor Scalp left Suture/staple removal: # christian (6), No complications PD Medical Decision Making - ED course Complexity details: d/w patient ED course: 82-year-old male presents for staple removal. He had 6 christian placed left scalp 9 days ago. The laceration of the scalp appears well-healed, scabbed, the re is no dehiscence, no drainage or erythema. The christian were removed without difficulty and patient tolerated well. He was advised at home wound care instructions as well as return precautions. Departure - Departure Disposition: 01 Home, Self Care Clinical Impression: Visit for suture removal Condition: Good Comments: You can go ahead and shower like normal, you may have some scabs from the scalp wounds, off but it looks to be well-healed. Please use your walker when you are walking at all times to reduce your risk of falling. Forms: PCP List Discharge Date/Time: 08/19/23 13:21
== END 2023-08-19 13:21 | disposition home or self-care (01) ==
LOC: ED 12:50
DX: Z48.02 Encounter for removal of sutures (principal); S01.01XD Laceration without foreign body of scalp, subsequent encounter; W19.XXXD Unspecified fall, subsequent encounter; Z91.81 History of falling; R29.6 Repeated falls; I10 Essential (primary) hypertension; G20.A1 Parkinson's disease without dyskinesia, without mention of fluctuations; E03.9 Hypothyroidism, unspecified; Z79.899 Other long term (current) drug therapy
CPT/HCPCS: 99281; 99282

== ENCOUNTER 2023-08-20 01:38 | Outpatient (CLI) | payer MEDICARE | END 2023-08-20 23:59 | disposition EMS.NT | LOC: EMS 01:38 | DX: F41.9 Anxiety disorder, unspecified (principal) ==

== ENCOUNTER 2023-08-20 10:36 | Outpatient (CLI) | payer MEDICARE | END 2023-08-20 23:59 | disposition EMS.NT | LOC: EMS 10:36 | DX: Z03.89 Encounter for observation for other suspected diseases and conditions ruled out (principal) ==

== ENCOUNTER 2023-08-31 03:06 | Outpatient (CLI) | payer MEDICARE | END 2023-08-31 23:59 | disposition EMS.NT | LOC: EMS 03:06 | DX: R53.1 Weakness (principal) ==

== ENCOUNTER 2023-09-08 09:30 | Emergency (ER) | payer MEDICARE ==
--- NOTE | 2023-09-08 10:06 | ED Physician Documentation ---
PD HPI LOWER EXT INJURY - Stated complaint Stated Complaint: RT HIP PX - Chief complaint Chief Complaint: Ext Problem - History obtained from History obtained from: Patient - Additional information Additional information: The patient comes to the emergency department chief complaint of right hip pain. He states that he chronically has some right hip pain because he has Parkinson's and tends to list to that side. He states that he has falls about once a week because listing to the right side throws his balance off and he tends to topple over. Patient also states that if he turns too quickly loses his balance and can fall from that to. The patient states that he did not notice the pain escalating after any particular fall but states that just randomly over the last couple days, he is noticed that the pain in his right hip is a lot worse. He states he just woke up with it yesterday morning and thought maybe he had "slept wrong". However, it has gone on and he is so uncomfortable he decided to come in. Patient states that he can walk and that actually, it is when he is not bearing weight that it seems to hurt the most. The patient states he drove himself here and driving was no problem. He can mostly move around whatever way he wants but the action of standing up hurts. No other complaints at this time. No numbness or tingling. No back pain. 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 : Incontinence HEENT: Chronic hearing loss Psych: Depression, Anxiety, Other Musculoskeletal: Osteoarthritis, Chronic back pain, Fatigue, Other Derm: None - Past Surgical History Past Surgical History: Yes General: EGD, Colonoscopy Ortho: Knee replacement Cardiovascular: Valve replacement Neuro: Other Derm: Other - Present Medications Home Medications: Ambulatory Orders Medication Instructions Recorded Confirmed Amlodipine Besylate 2.5 mg PO BID 12/17/17 05/31/23 Carbidopa/Levodopa [Carbidopa-Levo 1 tab PO BID 12/17/17 05/31/23 ER 50-200 Tab] Carbidopa/Levodopa 2 tab PO Q4HR 12/17/17 05/31/23 [Carbidopa-Levodopa 25-100 Tab] Cholecalciferol (Vitamin D3) 5,000 units PO 1000 12/17/17/13/24 [Vitamin D3] Cyanocobalamin (Vitamin B-12) 1,[place] [address]/17/17 04/01/23 [Vitamin B-12 (500 mcg sublingual)] Levothyroxine [place] [address]/17/17 05/31/23 Losartan Potassium 50 mg PO 219912/17/17 05/31/23 Multivitamin [Theragran] [place] [address]/17/17 05/31/23 Ropinirole HCl [Ropinirole ER] 8 mg PO 219912/17/17 05/31/23 LORazepam [Ativan] 0.5 mg PO BID PRN #12 tablet 10/23/21 04/01/23 Mirabegron [Myrbetriq] 50 mg ORAL DAILY 10/11/22 05/31/23 Carbidopa/Levodopa ER 50/200 2 tab PO HS 10/29/22 05/31/23 [Sinemet Cr 50 mg/200 mg] Entacapone [Comtan] 1 tab PO QID 10/29/22 05/31/23 Acetaminophen [Tylenol] 650 mg PO Q6HR 5 Days #50 tab 10/30/22 04/01/23 Ibuprofen 600 mg PO TID 5 Days #50 tablet 10/30/22 04/01/23 Docusate Sodium 100Mg Capsule 100 mg PO DAILY #20 cap 03/28/23 04/01/23 [Colace 100Mg Capsule] cephALEXin [Keflex] 500 mg PO Q6H 5 Days #28 cap 06/05/23 - Allergies Allergies/Adverse Reactions: Allergies Allergy/AdvReac Type Severity Reaction Status Date / Time No Known Drug Allergies Allergy Verified 09/08/23 09:39 - Social History Does the pt smoke?: No Smoking Status: Never smoker Does the pt drink ETOH?: No Does the pt have substance abuse?: No - Immunizations Immunizations are current?: Yes - POLST Patient has POLST: No POLST Status: Full Code PD ED PE NORMAL - Vitals Vital signs reviewed: Yes - General General: Alert and oriented X 3, No acute distress, Well developed/nourished - HEENT HEENT: Atraumatic, EOMI, Moist mucous membranes - Neck Neck: Supple, no meningeal sign - Cardiac Cardiac: Strong equal pulses - Respiratory Respiratory: No respiratory distress - Back Back: No spinal TTP - Derm Derm: Normal color, Warm and dry, No rash - Extremities Extremities: No deformity, Other (Tenderness to palpation over right iliac wing extending down into right hip area. No pain with range of motion of right hip. No clicking or popping. No shortening or rotation.) - Neuro Neuro: Alert and oriented X 3, No motor deficit, No sensory deficit - Psych Psych: Normal mood, Normal affect Results - Vitals Vitals: Vital Signs - 24 hr 09/08/23 09/08/23 09:35 10:58 Temperature 36.7 C 36.7 C Heart Rate 54 L 54 L Respiratory 16 16 Rate Blood Pressure 145/76 H 153/66 H O2 Saturation 95 99 Oxygen O2 Source Room air - Rads (name of study) lumbar spine XR Relevant Findings:: Final report received, See rad report (DJD, otherwise neg) PD Medical Decision Making - ED course Complexity details: reviewed results, re-evaluated patient, considered differential, d/w patient ED course: The patient was worked up with x-ray series of right hip and pelvis and treated symptomatically with Toradol and Decadron. He was feeling somewhat better on reevaluation. His x-ray series showed DJD but no acute findings. We have discussed symptomatic management at home, the need for follow-up, and the usual indications for return. Departure - Departure Disposition: 01 Home, Self Care Clinical Impression: Hip pain, right, Arthritis Parkinson disease Qualifiers: Dyskinesia presence: unspecified whether dyskinesia Fluctuating manifestations: unspecified whether manifestations fluctuate Qualified Code(s): G20.A1 - Parkinson's disease without dyskinesia, without mention of fluctuations Condition: Stable Instructions: Hip Osteoarthritis Comments: Your X-rays show some arthritis, but no other concerning findings. It is not surprising that you have some extra [id number] on that side, since you naturally list to that side, and have fallen to the right repeatedly, as well. You should take your home medications for pain and follow up with your primary doctor for further concerns. Forms: PCP List Discharge Date/Time: 09/08/23 11:00
[2023-09-08] MEDS: KETOROLAC 60 MG/2 ML VIAL IM STA (10:14)
[2023-09-08] MEDS: DEXAMETHASONE 10 MG/ML VIAL IM STA (10:14)
--- NOTE | 2023-09-08 10:38 | XRAY Report ---
PROCEDURE: Hip w/Pelvis 2-3V RT INDICATIONS: pain, Parkinson's, falls TECHNIQUE: 2 views of the hip were acquired. COMPARISON: 03/16/2023 FINDINGS: Bones: No fractures or dislocations. Moderate bilateral hip joint degeneration. Degenerative changes of the visualized lower lumbar spine and pubic symphysis. Diffusely decreased osseous mineralization . No suspicious bony lesions. Soft tissues: No suspicious soft tissue calcifications or masses. IMPRESSION: No acute bony abnormality. Reviewed by: Glen Boykin MD on 09/08/2023 10:30 AM PDT Approved by: Glen Boykin MD on 09/08/2023 10:30 AM PDT Station ID: [id number]
[2023-09-08 11:09] VITALS: BP 153/66; O2SAT 99
== END 2023-09-08 11:00 | disposition home or self-care (01) ==
LOC: ED 09:30
DX: M25.551 Pain in right hip (principal); G20.A1 Parkinson's disease without dyskinesia, without mention of fluctuations; G89.29 Other chronic pain; R29.6 Repeated falls; M16.11 Unilateral primary osteoarthritis, right hip; I10 Essential (primary) hypertension; Z91.81 History of falling
CPT/HCPCS: 96372; 99283; 99284

== ENCOUNTER 2023-09-09 02:08 | Outpatient (CLI) | payer MEDICARE | END 2023-09-09 23:59 | disposition EMS.NT | LOC: EMS 02:08 | DX: Z03.89 Encounter for observation for other suspected diseases and conditions ruled out (principal) ==

== ENCOUNTER 2023-11-23 10:34 | Outpatient (CLI) | payer MEDICARE | END 2023-11-23 10:35 | disposition EMS.NT | LOC: EMS 10:34 | DX: R53.1 Weakness (principal) ==

== ENCOUNTER 2023-12-11 09:47 | Outpatient (CLI) | payer MEDICARE | END 2023-12-11 23:59 | disposition critical access hospital (66) | LOC: EMS 09:47 | DX: R10.31 Right lower quadrant pain (principal); K59.00 Constipation, unspecified | CPT/HCPCS: A0425; A0429 ==

== ENCOUNTER 2023-12-11 10:04 | Emergency (ER) | payer MEDICARE ==
--- NOTE | 2023-12-11 10:22 | ED Physician Documentation ---
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 HEENT: Chronic hearing loss Psych: Depression, Anxiety, Other Musculoskeletal: Osteoarthritis, Chronic back pain, Fatigue, Other Derm: None - Past Surgical History Past Surgical History: Yes General: EGD, Colonoscopy Ortho: Knee replacement Cardiovascular: Valve replacement Neuro: Other Derm: Other - Present Medications Home Medications: Ambulatory Orders Medication Instructions Recorded Confirmed Amlodipine Besylate 2.5 mg PO QPM 12/17/17 12/11/23 Carbidopa/Levodopa See Rx Instructions .ROUTE .COMPLEX 12/17/17 12/11/23 [Carbidopa-Levodopa 25-100 Tab] Cyanocobalamin (Vitamin B-12) 1,000 mcg PO DAILY 12/17/17 12/11/23 [Vitamin B-12 (500 mcg sublingual)] Levothyroxine Sodium 50 mcg PO DAILY 12/17/17 12/11/23 Losartan Potassium 50 mg PO HS 12/17/17 12/11/23 Multivitamin [Theragran] 2 tab PO DAILY 12/17/17 12/11/23 Ropinirole HCl [Ropinirole ER] 8 mg PO HS 12/17/17 12/11/23 Carbidopa/Levodopa ER 50/200 1 tab PO BID 10/29/22 12/11/23 [Sinemet Cr 50 mg/200 mg] Entacapone [Comtan] 1 tab PO QID 10/29/22 12/11/23 Docusate Sodium 100Mg Capsule 100 mg PO DAILY #20 cap 12/11/23 [Colace 100Mg Capsule] HYDROcod/ACETAM 5/325 [[place] 5/325] 1 tab PO Q6HR PRN 12/11/23 12/11/23 Lidocaine See Rx Instructions .ROUTE .COMPLEX 12/11/23 12/11/23 Senna [Senokot] 2 tab PO HS PRN 12/11/23 12/11/23 polyethylene glycoL 3350(BULK) 17 gm PO DAILY PRN #1 each 12/11/23 [Miralax] - Allergies Allergies/Adverse Reactions: Allergies Allergy/AdvReac Type Severity Reaction Status Date / Time No Known Drug Allergies Allergy Verified 12/11/23 10:13 - Social History Does the pt smoke?: No Smoking Status: Never smoker Does the pt drink ETOH?: No Does the pt have substance abuse?: No - Immunizations Immunizations are current?: Yes - POLST Patient has POLST: No POLST Status: Full Code PD ED PE NORMAL - Vitals Vital signs reviewed: Yes - General General: No acute distress, Well developed/nourished - Cardiac Cardiac: RRR, No murmur - Respiratory Respiratory: No respiratory distress, Clear bilaterally - Abdomen Abdomen: Normal bowel sounds, Soft, Non distended, Other (lower abd tender without garuding. Focus of it is suprappubic and LLQ. No percussion nor rebound tenderness. ) - Male Male : Deferred - Rectal Rectal: Deferred - Back Back: No CVA TTP - Derm Derm: Normal color, Warm and dry Results - Vitals Vitals: Vital Signs - 24 hr 12/11/23 12/11/23 12/11/23 10:13 12:16 14:00 Temperature 36.5 C Heart Rate 45 L 58 L 63 Respiratory 14 19 14 Rate Blood Pressure 146/82 H 194/96 H 145/101 H O2 Saturation 100 98 96 12/11/23 15:07 Temperature Heart Rate 58 L Respiratory 18 Rate Blood Pressure 185/82 H O2 Saturation 96 Oxygen O2 Source Room air - Labs Labs: Laboratory Tests 12/11/23 12/11/23 12/11/23 10:39 10:39 11:00 WBC 5.6 RBC 3.71 L Hgb 12.0 L Hct 35.9 L MCV 96.8 H MCH 32.3 H MCHC 33.4 RDW 12.9 Plt Count 160 MPV 9.9 Neut # (Auto) 4.2 Lymph # (Auto) 0.7 L [place] # (Auto) 0.6 Eos # (Auto) 0.1 Baso # (Auto) 0.0 Absolute Nucleated RBC 0.00 Nucleated RBC % 0.0 Sodium 138 Potassium 4.3 Chloride 106 Carbon Dioxide 28 Anion Gap 4.0 L BUN 21 H Creatinine 1.3 Estimated GFR (MDRD) 53 L Glucose 84 Calcium 9.0 Magnesium 1.9 Total Bilirubin 0.7 AST 12 ALT < 3 L Alkaline Phosphatase 49 Total Protein 6.2 L Albumin 3.8 Globulin 2.4 Albumin/Globulin Ratio 1.6 Lipase < 10 L Urine Color DARK YELLOW Urine Clarity CLEAR Urine pH 6.0 Ur Specific [place] 1.025 Urine Protein NEGATIVE Urine Glucose (UA) NEGATIVE Urine Ketones TRACE Urine Occult Blood NEGATIVE Urine Nitrite NEGATIVE Urine Bilirubin NEGATIVE Urine Urobilinogen 0.2 (NORMAL) Ur Leukocyte Esterase NEGATIVE Ur Microscopic Review NOT INDICATED Urine Culture Comments NOT INDICATED - Rads (name of study) abd/pelvic CT Relevant Findings:: Prelim report reviewed PD Medical Decision Making - ED course Complexity details: reviewed results (rectal impaction and copious stool load. No acute otherwise. ), re-evaluated patient (he had rectal suppos dulcolax after I read CT showing rectal impaction and stools copiously in colon. He had large BM after those and is feeling less pain/pressure in lower abd. ), considered differential (has had firmer stools and the not any for couple days. However, the area of pain could also be c/w diverticulitis, kidney stone, UTI etc. Can get labs and CT for concern of diverticulitis that needs to be included/excluded. ), d/w patient Departure - Departure Disposition: 01 Home, Self Care Clinical Impression: Lower abdominal pain, Constipation Condition: Stable Record reviewed to determine appropriate education?: Yes Instructions: ED Constipation Follow-Up: Jeremy Tejeda MD [Primary Care Provider] - Prescriptions: Docusate Sodium 100Mg Capsule [Colace 100Mg Capsule] 100 mg PO DAILY #20 cap polyethylene glycoL 3350(BULK) [Miralax] 17 gm PO DAILY PRN #1 each PRN Reason: Constipation Comments: Sorry for the delay in completing the scans as we did have several other that pr ioritize the CT scanner. Your CT scan results showed a fair amount of stool load and a large ball of stool down in the lower sigmoid and rectum area. I think this has been given you your pains. No signs of diverticulitis or other acute processes. Continue usual medicines. Add daily MiraLAX and docusate to keep things moving little bit more smoothly. Tylenol if needed for pains. Forms: PCP List Discharge Date/Time: 12/11/23 15:21
[2023-12-11] MEDS: KETOROLAC 15 MG/ML VIAL IVP STA (10:42)
[2023-12-11 10:47] LABS: BASOPHILS % (AUTO) 0.7 %; EOSINOPHILS # (AUTO) 0.1 10^3/uL (0.0-0.7); HCT - HEMATOCRIT 35.9 % (42.0-52.0); LYMPHOCYTES # (AUTO) 0.7 10^3/uL (1.5-3.5); LYMPHOCYTES % (AUTO) 12.9 %; MEAN CORPUSCULAR HEMOGLOBIN 32.3 pg (27.0-31.0); MEAN CORPUSCULAR HGB CONC 33.4 g/dL (32.0-36.0); MEAN CORPUSCULAR VOLUME 96.8 fL (80.0-94.0); MEAN PLATELET VOLUME 9.9 fL (7.4-11.4); MONOCYTES # (AUTO) 0.6 10^3/uL (0.0-1.0); MONOCYTES % (AUTO) 9.9 %; NEUTROPHILS # (AUTO) 4.2 10^3/uL (1.5-6.6); NEUTROPHILS % (AUTO) 74.1 %; PLT - PLATELET COUNT 160 10^3/uL (130-450); RED BLOOD COUNT 3.71 10^6/uL (4.70-6.10); RED CELL DISTRIBUTION WIDTH 12.9 % (12.0-15.0); WHITE BLOOD COUNT 5.6 x10^3/uL (4.8-10.8)
[2023-12-11 10:58] LABS: ALBUMIN 3.8 g/dL (3.2-5.5); ALBUMIN/GLOBULIN RATIO 1.6 (1.0-2.2); ALKALINE PHOSPHATASE 49 IU/L (42-121); ALT ALANINE AMINOTRANSFERASE < 3 IU/L (10-60); AST ASPARTATE AMINOTRANSFERASE 12 IU/L (10-42); BILIRUBIN,TOTAL 0.7 mg/dL (0.2-1.0); BUN - BLOOD UREA NITROGEN 21 mg/dL (6-20); CARBON DIOXIDE - CO2 28 mmol/L (21-32); CHLORIDE 106 mmol/L (101-111); CREATININE 1.3 mg/dL (0.6-1.3); GFR - MDRD 53 (>89); GLUCOSE 84 mg/dL (74-104); LIPASE < 10 U/L (11-82); MAGNESIUM 1.9 mg/dL (1.7-2.3); POTASSIUM 4.3 mmol/L (3.5-4.5); SODIUM 138 mmol/L (135-145); TOTAL PROTEIN 6.2 g/dL (6.4-8.9)
[2023-12-11] MEDS ORDERED: iohexoL-300 100 ML VIAL ONE (11:10)
[2023-12-11 11:25] LABS: BILIRUBIN,URINE NEGATIVE (NEGATIVE); GLUCOSE, URINE (UA) NEGATIVE (NEGATIVE); KETONES,URINE (UA) TRACE mg/dL (NEGATIVE); LEUKOCYTE ESTERASE, URINE NEGATIVE (NEGATIVE); NITRITE,URINE NEGATIVE (NEGATIVE); OCCULT BLOOD,URINE NEGATIVE (NEGATIVE); PROTEIN,URINE NEGATIVE (NEGATIVE); UROBILINOGEN,URINE 0.2 (NORMAL) E.U./dL (NORMAL)
[2023-12-11 11:26] LABS: CLARITY,URINE CLEAR (CLEAR)
--- NOTE | 2023-12-11 12:46 | CT Report ---
PROCEDURE: Abdomen/Pelvis W INDICATIONS: LLQ Abdominal pain, diverticulitis suspected CONTRAST: 100ml [id number] TECHNIQUE: After the administration of intravenous contrast, a CT scan of the abdomen and pelvis was performed. Images were recorded and evaluated at appropriate window settings. Reformats: coronal and sagittal. F or radiation dose reduction, the following was used: automated exposure control, adjustment of mA and /or kV according to patient size. COMPARISON: 08/27/2023. FINDINGS: Image quality: Diagnostic. Lower chest: Mild dependent change in the extreme right lung base. Remote aortic valve replacement. C ardiomegaly with enlargement of the left atrium and right ventricle and right atrium. Atherosclerotic coronary artery calcifications.. Liver: No solid mass. Gallbladder: No radiopaque stones or wall thickening. Biliary tree: No intrahepatic or extrahepatic dilation, accounting for age. Spleen: No splenomegaly. Pancreas: No pancreatic ductal dilation. Adrenals: No adrenal nodule. Kidneys and ureters: No hydronephrosis. No renal cystic lesion which requires follow up. No solid mas s. Stomach, bowel and peritoneum: Cannot exclude a stenotic lesion at the GE junction. Esophagus is some what dilated with debris above this level. Mild rectal fecal impaction with fecal incontinence. Diver ticulosis. No obvious diverticulitis identified. Lymph nodes: No central or retroperitoneal adenopathy. Vessels: Borderline aneurysmal abdominal aorta, which has a transverse diameter of 3.0 cm on image 60 of series 2... Patent portal vein. PELVIS Reproductive organs: Unremarkable. Bladder: No abnormal wall thickening, accounting for underdistention. Pelvic lymph nodes: No pelvic adenopathy by size criteria. Bones: No aggressive osseous abnormality. Chronic moderate to severe T12 compression. Lumbar degenera tive change. No new compression fractures.. Other: No significant ventral or inguinal hernia. IMPRESSION: 1. Question circumferential narrowing at the GE junction. Consider nonemergent endoscopic evaluation. 2. Cardiomegaly, valve, atherosclerotic coronary calcifications. 3. Mild rectal fecal impaction with fecal incontinence. 4. Diverticulosis without definite evidence of acute diverticulitis. 5. 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 Reviewed by: Jeff Degroot MD on 12/11/2023 12:45 PM PDT Approved by: Jeff Degroot MD on 12/11/2023 12:45 PM PDT Station ID: [id number]
[2023-12-11] MEDS: BISACODYL 10 MG SUPP PR STA (12:48)
[2023-12-11] MEDS: CARBIDOPA/LEVODOPA 25 MG/100 MG TABLET PO STA (12:48)
[2023-12-11] MEDS: LACTULOSE 10 GM /15 ML UDC PO STA (12:49)
[2023-12-11] MEDS ORDERED: CARBIDOPA/LEVODOPA ER 25 MG/100 MG TABLET PO STA (13:05)
[2023-12-11 14:22] VITALS: O2SAT 96
[2023-12-11 15:17] VITALS: BP 185/82
[2023-12-11] MEDS: iohexoL-300 100 ML VIAL IVP ONE (16:41)
== END 2023-12-11 15:21 | disposition home or self-care (01) ==
LOC: EDUNIT# → ED 10:04
DX: K59.00 Constipation, unspecified (principal); I10 Essential (primary) hypertension; G20.A1 Parkinson's disease without dyskinesia, without mention of fluctuations; E03.9 Hypothyroidism, unspecified; Z79.899 Other long term (current) drug therapy
CPT/HCPCS: 36415; 74177; 80053; 81003; 83690; 83735; 85025; 96374; 99283; 99284; A9270; Q9967; 81001; 87086